=== PATIENT | female | born 1965 | race Caucasian/White ===

== ENCOUNTER 2016-05-11 15:49 | Inpatient (IN) ==
[2016-05-11] MEDS ORDERED: ONDANSETRON 4 MG/2 ML VIAL IV STA (16:08)
[2016-05-11] MEDS ORDERED: methylPREDNISolone SOD SUC 125 MG/2 ML VIAL IV STA (16:08)
[2016-05-11] MEDS ORDERED: FUROSEMIDE 100 MG/10 ML VIAL IV STA (16:08)
[2016-05-11] MEDS ORDERED: MORPHINE 2 MG/1 ML SYRINGE IV STA (16:08)
--- NOTE | 2016-05-11 16:13 | Emergency Department Note ---
Robby Calix Meredith, am scribing for, and in the presence of, Tito Edwards MD 16:09. Grace Calix Charles R, MD, personally performed the services described in this documentation, ascribed by Amie Bustamante in my presence, and it is both accurate and complete 613 . Arrival - Arrival Chief Complaint: Shortness of Breath ED Nursing Triage Note: c/o sob and cough for 3 days Mode of Arrival: Stretcher Limitations: No Limitations Source: Patient, Old Records Reviewed, RN Notes Reviewed Time Seen by Provider: 05/11/16 16:01 - History of Present Illness HPI Narrative: Pt is a 50 y/o white female brought to the ED by EMS with c/o shortness of breath and cough for the past 3 days. She confirms nausea, vomiting, orthonea, dyspnea on exertion, decreased PO intake, and inability to sleep but denies any chest pain. Pt states when she wakes up in the morning she feels very out of breath and has a headache. She had a hernia surgery on 04/10/16. Pt is a former smoker. She has a history of HTN, anxiety, depression, migraine, HLD, NIDDM, obstructive sleep apnea, asthma, bronchitis, COPD, and pneumonia. Pt is supposed to use a CPAP at night but has not been using it for the past month. Onset (ago): day(s) Allergies/Adverse Reactions: Allergies Allergy/AdvReac Type Severity Reaction Status Date / Time fentanyl [From Duragesic] Allergy Severe RASH, Verified 04/09/16 13:08 SWELLING OF FACE AND EYES Home Medications: Home Medications Medication Instructions Recorded Confirmed Type ALPRAZolam [Xanax] 0.5 mg PO BID PRN 02/01/15 05/11/16 History Albuterol Neb [Proventil Neb] 2.5 mg RESP TX Q4HR 02/01/15 05/11/16 History Budesonide/Formoterol 160-4.5 2 puff INH BID 02/01/15 05/11/16 History [Symbicort 160-4.5] FLUoxetine [PROzac] 40 mg PO DAILY 02/01/15 05/11/16 History Lisinopril/Hydrochlorothiazide 1 each PO DAILY 06/06/15 05/11/16 History [Lisinopril-Hctz 20-12.5 mg Tab] predniSONE TAB [PredniSONE] 20 mg PO TID 07/21/15 05/11/16 History Gabapentin Cap/Tab [Neurontin 100 mg PO DAILY 04/10/16 05/11/16 History Cap/Tab] Tizanidine HCl 4 mg PO Q8H PRN 04/10/16 05/11/16 History Review of System - Review of System 12 point system: reviewed and no additional remarkable complaints except as stated - Review of System Constitutional: Present: as per HPI, other (difficultly sleeping) Respiratory: Present: as per HPI, cough, other (SOB) Cardiovascular: Present: as per HPI, dyspnea on exertion, orthopnea. 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), Dental Problems (missing teeth) Endocrine: History of: Diabetes Mellitus (NIDDM) (when on steroids), Dyslipidemia Respiratory: History of: Asthma, Bronchitis, COPD, Obstructive Sleep Apnea (PT HAS CPAP), Pneumonia, Respiratory Problems (O2 2 LITERS) Gastrointestinal: History of: GI Problems (VENTRAL HERNIA) Musculoskeletal: History of: Back/Neck Problems - Surgical History Abdominal Surgeries: Surgical HX of: Appendectomy, Cholecystectomy, EGD, Hernia Repair (Ventral hernia with mesh) Reproductive Surgeries: Surgical HX of;: Section (X3), Tubal Ligation - Family History Family History: Reports;: Family Cancer, Family Heart Disease, Family Hypertension, Family Psychiatric Problems, Family Stroke Denies;: Family Anesthesia Reaction, Family Diabetes - Social History Smoking Status: Former smoker Frequency of Alcohol Use: None Type of Drug Use: None Exam Vital Signs: Vital Signs Temperature 97.5 F L 05/11/16 15:50 Pulse Rate 95 H 05/11/16 17:30 Respiratory Rate 24 05/11/16 17:30 Blood Pressure 100/67 05/11/16 15:50 O2 Sat by Pulse Oximetry 100 05/11/16 17:30 - General General appearance: alert, in no apparent distress - Head Head exam: Present: atraumatic, normocephalic - Eye Eye exam: Present: normal appearance, PERRL, EOMI - ENT ENT exam: Present: mucous membranes moist, normal external ear exam - Neck Neck exam: Present: full ROM, trachea midline. Absent: tenderness, meningismus , lymphadenopathy, thyromegaly - Chest Chest inspection: Present: symmetric chest wall rise. Absent: tenderness, rash - Respiratory Respiratory exam: Present: rales (bibasilar ), rhonchi (harsh ), wheezes - Cardiovascular Cardiovascular exam: Present: normal rhythm, tachycardia. Absent: murmur, rubs , gallop - Abdominal Exam Abdominal exam: Present: soft, normal bowel sounds, other (hernia repair incision site is healing well ). Absent: distention, tenderness - Extremities Exam Extremities exam: Present: full ROM, normal capillary refill. Absent: tenderness, pedal edema, calf tenderness - Back Exam Back exam: Present: full ROM. Absent: tenderness - Neurological Exam Neurological exam: Present: alert, oriented X3, CN II-XII intact. Absent: motor sensory deficit - Psychiatric Psychiatric exam: Present: normal affect, normal mood - Skin Skin exam: Present: warm, dry, intact, normal color Course - Consultations Consultation #1: Hospitalist will admit patient Time: 19:33 Results - Labs CBC & BMP: 05/11/16 16:42 05/11/16 16:42 Lab Results: I have reviewed the patients labs Labs: Laboratory Tests 05/11/16 16:42 WBC 16.1 H RBC 4.57 Hgb 13.1 Hct 42.0 MCHC 31.2 L Plt Count 461 H Lymph # (Auto) 7.5 H [place] # (Auto) 0.9 H Laboratory Tests 05/11/16 17:15 ABG pH 7.404 ABG pCO2 47.6 ABG pO2 69.9 L ABG HCO3 28.0 H ABG Total CO2 25.8 ABG O2 Saturation 93.9 L ABG Base Excess 4.1 H FiO2 28.00 Laboratory Tests 05/11/16 16:42 Sodium 139 Potassium 5.5 H Chloride 99 Carbon Dioxide 31 BUN 20 H Creatinine 0.90 BUN/Creatinine Ratio 22.00 H Alkaline Phosphatase 147 H Troponin I < 0.015 Globulin 4.6 H Albumin/Globulin Ratio 0.7 L Laboratory Tests 05/11/16 17:21 Urine pH 7.0 Ur Specific Yoder 1.006 Urine Urobilinogen < 2.0 H Urine RBC 1 Urine WBC 1 Ur Squamous Epith Cells Occasional - Diagnostic Findings Procedure: Chest x-ray: report reviewed by me (Proressive diffuse parenchymal findings which could be related to pneumonia, interstitial edema, progressive interstitial lung disease, etc. Findings remain more prominent in the lateral left lower lung zone with ill-defined densitites and progressive pleural thickening. ) Disposition Clinical Impression: COPD (chronic obstructive pulmonary disease) with acute bronchitis, Acute dyspnea, Community acquired pneumonia, Leukocytosis, Hyperkalemia Case discussed with: patient, patient's family Disposition: Still a Patient Condition: Stable Time of Disposition: 19:34
[2016-05-11] MEDS ORDERED: FUROSEMIDE 40 MG/4 ML VIAL ONE (16:28)
[2016-05-11] MEDS ORDERED: MORPHINE 2 MG/1 ML SYRINGE ONE (16:28)
[2016-05-11] MEDS ORDERED: ONDANSETRON 4 MG/2 ML VIAL ONE (16:28)
[2016-05-11] MEDS ORDERED: methylPREDNISolone SOD SUC 125 MG/2 ML VIAL ONE (16:29)
[2016-05-11] MEDS ORDERED: ALBUTEROL 2.5 MG/3 ML NEB RESP TX SCH (16:30)
--- NOTE | 2016-05-11 16:52 | XRay Report ---
Portable chest Date: 05/11/2016 Clinical history: Shortness of breath Comparison: 02/13/2016 Technique: Portable AP sitting chest Findings: The heart is borderline in size. Progressive diffuse parenchymal findings in the lungs. The findings are more pronounced in the lateral left mid to lower lung zone. Possible small pleural effusions. Stable mediastinum with degenerative changes. Old healed rib fractures. Impression: Progressive diffuse parenchymal findings which could be related to pneumonia, interstitial edema, progressive interstitial lung disease, etc. Findings remain more prominent in the lateral left lower lung zone with ill-defined densities and progressive pleural thickening. Follow-up recommended. PROCEDURE INTERPRETED AT [facility] DEPARTMENT OF RADIOLOGY Final Report Signed by: Dr. Cadence Lynne
[2016-05-11] MEDS ORDERED: cefTRIAXone 1,000 MG in SODIUM CHLORIDE 0.9% 100 ML IV STA (16:56)
[2016-05-11 17:05] LABS: Basophils % 0.2 % (0.0-0.8); Eosinophils # 0.3 10*3/uL (0.0-0.87); Hemoglobin 13.1 GM/DL (12.0-16.0); Immature Granulocytes % 0.4 %; Immature Granulocytes Absolute 0.07 #; Lymphocytes # 7.5 10*3/uL (1.4-4.0); Lymphocytes % 46.8 % (21.3-54.2); Mean Corpuscular HGB Conc 31.2 GM/DL (32-36); Mean Corpuscular Hemoglobin 29 PG (27-34); Mean Corpuscular Volume 91.9 FL (87-102); Monocytes # 0.9 10*3/uL (0.11-0.8); Monocytes % 5.7 % (1.7-12.7); Neutrophils # 7.2 10*3/uL (1.4-7.4); Neutrophils % 44.9 % (38.7-73.9); Platelet Count 461 T/CUMM (130-400); Red Blood Count 4.57 MC/CUMM (3.8-5.5); Red Cell Distribution Width 13.8 % (9.3-17.3); White Blood Count 16.1 T/CUMM (4-12)
[2016-05-11 17:23] LABS: ABG Base Excess 4.1 MMOL/L (-2.5-2.5); ABG Oxygen Saturation 93.9 % (95-100); ABG PCO2 47.6 MM HG (35-48); ABG PH 7.404 (7.35-7.45); ABG PO2 69.9 MM HG (80-95); ABG TCO2 25.8 MMOL/L (23-27); Allen Test Positive
[2016-05-11 17:23] LABS: Alanine Aminotransferase 33 U/L (13-56); Albumin 3.6 G/DL (3.4-5.0); Alkaline Phosphatase 147 U/L (45-117); Aspartate Amino Transferase 36 U/L (0-37); Blood Urea Nitrogen 20 MG/DL (7-18); Calcium 8.8 MG/DL (8.5-10.1); Glucose 95 MG/DL (74-106); Magnesium 2.4 MG/DL (1.8-2.4); Osmolality,Calculated 279.5 MOS/KG (273-304); Potassium 5.5 MMOL/L (3.5-5.1); Sodium 139 MMOL/L (136-145); Total Protein 8.2 G/DL (6.4-8.3); Troponin I Only < 0.015 NG/ML (0.00-0.045)
[2016-05-11 17:30] LABS: Apearance,Urine CLEAR (Clear); Bilirubin,Urine Negative (Negative); Blood, Urine Negative (Negative); Glucose,Urine (UA) Negative (Negative); Ketones,Urine Negative (Negative); Nitrite,Urine Negative (Negative); Protein,Urine Negative; RBC,Urine 1 /HPF (0-4); Squamous Epithelial Cell,Urine Occasional /HPF (0-10); Urine Color Straw (Yellow); Urine Specific Gravity 1.006 (1.001-1.035); Urine Urobilinogen < 2.0 EU/DL (0.2-1.0); WBC,Urine 1 /HPF (0-6)
--- NOTE | 2016-05-11 17:38 | EKG Report ---
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
[2016-05-11] MEDS ORDERED: cefTRIAXone 1,000 MG VIAL ONE (17:42)
[2016-05-11 17:53] LABS: D-Dimer 3.3 MG/L FEU
--- NOTE | 2016-05-11 18:55 | CT Report ---
History: Shortness of breath. Recently postop. Elevated d-dimer Date: 05/11/2016 Study: CT chest with IV contrast with pulmonary embolus technique Comparison exam: High-resolution CT chest February 09, [address] sections were obtained through the lungs following the IV administration of 80 mL of Omnipaque 350 without immediate complication. Multiplanar reconstruction images were also evaluated. Total DLP measures 294 mGy*cm. There is no discrete filling defect within the pulmonary arterial tree to suggest acute pulmonary embolic disease. There is slightly limited evaluation of the peripheral most pulmonary arterial tree because of IV contrast timing. There is mild coronary artery calcification involving the left anterior descending coronary artery. There is no thoracic aortic aneurysm or dissection. There is some mild right paratracheal and left prevascular lymphadenopathy, including a 12 mm short axis diameter right paratracheal node. These changes were present on the comparison study. There is chronic groundglass and reticular nodular parenchymal disease throughout both lungs, grossly similar to the previous study. This does relatively spare the inferior most aspect of the lower lobes and right middle lobe. There is no obvious new pulmonary mass. There is some peripheral honeycombing in the upper lung zones. Healing fractures of the left seventh and ninth ribs are present. There is no acute abnormality of the partially visualized upper abdomen. Impression: No evidence of acute pulmonary embolic disease. There is slightly decreased sensitivity for small peripheral emboli because of contrast opacification. There are some chronic interstitial lung changes which are similar to the previous study from February 09, 2016. There is some stable nonspecific mediastinal lymphadenopathy. Consider sarcoidosis. Healing rib fractures are noted on the left PROCEDURE INTERPRETED AT [facility] DEPARTMENT OF RADIOLOGY Final Report Signed by: Dr. Janel Ribeiro
[2016-05-11] MEDS ORDERED: RIZATRIPTAN ODT 5 MG TABLET PO STA (20:11)
[2016-05-11] MEDS ORDERED: PROMETHAZINE 25 MG/1 ML VIAL IM STA (20:11)
[2016-05-11] MEDS ORDERED: PROMETHAZINE 25 MG/1 ML VIAL ONE (20:12)
[2016-05-11] MEDS ORDERED: RIZATRIPTAN ODT 5 MG TABLET PO ONE (20:30)
--- NOTE | 2016-05-11 21:14 | Hospitalist History & Physical ---
Assessment and Plan (1) COPD (chronic obstructive pulmonary disease) with acute bronchitis Status: Chronic Current Visit: No (2) Acute exacerbation of chronic obstructive pulmonary disease (COPD) Status: Acute Current Visit: No (3) Community acquired pneumonia Status: Acute Current Visit: Yes (4) Acute exacerbation of chronic obstructive airways disease Status: Acute Current Visit: No (5) Acute dyspnea Status: Acute Current Visit: Yes (6) Leukocytosis Status: Acute Current Visit: Yes (7) Hyperkalemia Status: Acute Assessment and plan: Plan for this patient #1 admit the patient our service #2 IV antibiotics #3 scheduled breathing treatments. #[address] Bills to follow along on this patient Current Visit: Yes History of Present Illness Chief complaint: shortness of breath and cough History of present illness: Ms. Che is a 50 year old female with past medical history of COPD chronic low back pain who is his normal state of health till last few days. Patient reports a recent surgery for hernia repair. She said ever since then that she has felt short of breath. She been coughing really bad hasn't been that productive. She reports that today she got real dizzy and almost fainted. She got around to her nebulizer. And she is on home oxygen 24 hours a day. And try to treat herself. When she didn't get better she will and she was by herself she called EMS and EMS brought her up to our hospital for further evaluation Home Medications Medication Instructions Recorded Confirmed Type ALPRAZolam [Xanax] 0.5 mg PO BID PRN 02/01/15 05/11/16 History Albuterol Neb [Proventil Neb] 2.5 mg RESP TX Q4HR 02/01/15 05/11/16 History Budesonide/Formoterol 160-4.5 2 puff INH BID 02/01/15 05/11/16 History [Symbicort 160-4.5] FLUoxetine [PROzac] 40 mg PO DAILY 02/01/15 05/11/16 History Lisinopril/Hydrochlorothiazide 1 each PO DAILY 06/06/15 05/11/16 History [Lisinopril-Hctz 20-12.5 mg Tab] predniSONE TAB [PredniSONE] 20 mg PO TID 07/21/15 05/11/16 History Gabapentin Cap/Tab [Neurontin 100 mg PO DAILY 04/10/16 05/11/16 History Cap/Tab] Tizanidine HCl 4 mg PO Q8H PRN 04/10/16 05/11/16 History Allergies Allergy/AdvReac Type Severity Reaction Status Date / Time fentanyl [From Duragesic] Allergy Severe RASH, Verified 04/09/16 13:08 SWELLING OF FACE AND EYES Medical,Surgical,& Family Hx - Medical History Cardio: History of: Hypertension Psychological: History of: Anxiety Disorders, Depression Neurology: History of: Migraine (OCCASIONAL) No history of: Seizures HEENT: History of: 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), Dental Problems (missing teeth) Endocrine: History of: Diabetes Mellitus (NIDDM) (when on steroids), Dyslipidemia Respiratory: History of: Asthma, Bronchitis, COPD, Obstructive Sleep Apnea (PT HAS CPAP), Pneumonia, Respiratory Problems (O2 2 LITERS) Gastrointestinal: History of: GI Problems (VENTRAL HERNIA) Musculoskeletal: History of: Back/Neck Problems - Surgical History Abdominal Surgeries: Surgical HX of: Appendectomy, Cholecystectomy, EGD, Hernia Repair (Ventral hernia with mesh) Reproductive Surgeries: Surgical HX of;: Section (X3), Tubal Ligation - Family History Family History: Reports;: Family Cancer, Family Heart Disease, Family Hypertension, Family Psychiatric Problems, Family Stroke Denies;: Family Anesthesia Reaction, Family Diabetes - Social History Smoking Status: Former smoker Frequency of Alcohol Use: None Type of Drug Use: None 12 point system: reviewed and no additional remarkable complaints except as stated Exam - Constitutional Vitals: Period Temp Pulse Resp BP Sys/Ahuja Pulse Ox Last 24 Hr 97.5 F-97.5 F 86-102 18-24 90-103/55-67 91-100 - General General appearance: alert, in no apparent distress - Head Head exam: Present: atraumatic, normocephalic - Eye Eye exam: Present: normal appearance, PERRL, EOMI - ENT ENT exam: Present: mucous membranes moist, normal external ear exam - Neck Neck exam: Present: full ROM, trachea midline. Absent: tenderness, meningismus , lymphadenopathy, thyromegaly - Chest Chest inspection: Present: symmetric chest wall rise. Absent: tenderness, rash - Respiratory Respiratory exam: Present: rales (bibasilar ), rhonchi (harsh ), wheezes - Cardiovascular Cardiovascular exam: Present: normal rhythm, tachycardia. Absent: murmur, rubs , gallop - Abdominal Exam Abdominal exam: Present: soft, normal bowel sounds, other (hernia repair incision site is healing well ). Absent: distention, tenderness - Extremities Exam Extremities exam: Present: full ROM, normal capillary refill. Absent: tenderness, pedal edema, calf tenderness - Back Exam Back exam: Present: full ROM. Absent: tenderness - Neurological Exam Neurological exam: Present: alert, oriented X3, CN II-XII intact. Absent: motor sensory deficit - Psychiatric Psychiatric exam: Present: normal affect, normal mood - Skin Skin exam: Present: warm, dry, intact, normal color Results - Labs CBC & BMP: 05/11/16 16:42 05/11/16 16:42
[2016-05-11] MEDS ORDERED: ALBUTEROL 2.5 MG/3 ML NEB RESP TX PRN (21:19)
[2016-05-11] MEDS ORDERED: ONDANSETRON 4 MG/2 ML VIAL IV PRN (21:19)
[2016-05-11] MEDS ORDERED: tiZANidine 4 MG TABLET PO PRN (21:23)
[2016-05-11] MEDS ORDERED: ACETAMINOPHEN 325 MG TABLET PO PRN (23:13)
[2016-05-11] MEDS: BUDESONIDE/FORMOTEROL 160-4.5 INHALER 6 GM INH SCH (23:24)
[2016-05-11] MEDS: ALPRAZolam 0.5 MG TABLET PO PRN (23:29)
[2016-05-11] MEDS: methylPREDNISolone SOD SUC 40 MG/1 ML VIAL IV SCH (23:31)
[2016-05-11] MEDS: AZITHROMYCIN INJ 500 MG in SODIUM CHLORIDE 0.9% 250 ML IV SCH (23:34)
[2016-05-11 23:55] LABS: Platelet Estimate Increased
[2016-05-12] MEDS: ALBUTEROL/IPRATROPIUM 3 ML NEB RESP TX SCH ×4 (00:20→19:10)
[2016-05-12 06:53] LABS: Hematocrit 36.3 VOL% (35.7-47.0); Hemoglobin 11.4 GM/DL (12.0-16.0); Immature Granulocytes % 0.7 %; Immature Granulocytes Absolute 0.06 #; Lymphocytes # 1.5 10*3/uL (1.4-4.0); Lymphocytes % 17.3 % (21.3-54.2); Mean Corpuscular HGB Conc 31.4 GM/DL (32-36); Mean Corpuscular Hemoglobin 28 PG (27-34); Mean Corpuscular Volume 90.3 FL (87-102); Mean Platelet Volume 10.5 FL (9.6-12.0); Monocytes # 0.1 10*3/uL (0.11-0.8); Monocytes % 0.7 % (1.7-12.7); Neutrophils # 7.1 10*3/uL (1.4-7.4); Neutrophils % 81.3 % (38.7-73.9); Platelet Count 394 T/CUMM (130-400); Red Blood Count 4.02 MC/CUMM (3.8-5.5); Red Cell Distribution Width 13.8 % (9.3-17.3); White Blood Count 8.7 T/CUMM (4-12)
[2016-05-12 07:29] LABS: Calcium 8.8 MG/DL (8.5-10.1); Osmolality,Calculated 286.4 MOS/KG (273-304); Potassium 4.6 MMOL/L (3.5-5.1)
[2016-05-12] MEDS: GABAPENTIN 100 MG CAPSULE PO SCH (09:05)
[2016-05-12] MEDS: FLUoxetine 20 MG CAPSULE PO SCH (09:05)
[2016-05-12] MEDS: LISINOPRIL/HCTZ 20-12.5 MG TABLET PO SCH (09:05)
[2016-05-12] MEDS: methylPREDNISolone SOD SUC 40 MG/1 ML VIAL IV SCH ×3 (09:05→23:35)
[2016-05-12] MEDS: BUDESONIDE/FORMOTEROL 160-4.5 INHALER 6 GM INH SCH ×2 (09:06→20:48)
[2016-05-12] MEDS: ALPRAZolam 0.5 MG TABLET PO PRN ×2 (09:10→20:54)
[2016-05-12] MEDS: ENOXAPARIN 40 MG/0.4 ML SYRINGE SUBCUT SCH (09:11)
[2016-05-12] MEDS ORDERED: MORPHINE 2 MG/1 ML SYRINGE IV ONE ×2 (10:38→23:09)
--- NOTE | 2016-05-12 11:38 | Pulmonology Consult Note ---
Assessment and Plan (1) COPD (chronic obstructive pulmonary disease) with acute bronchitis Status: Chronic Assessment and plan: The patient has been a lifelong smoker and does have a component of COPD. She comes in with a mild exacerbation due to bronchitis and possible mild pneumonia. She seems to be doing okay on present treatment. Current Visit: No (2) Hypertension Status: Acute Assessment and plan: She'll continue with her blood pressure medicines. 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 She'll continue steroids and hopefully stay off cigarettes. Current Visit: No History of Present Illness Chief complaint: shortness of breath History of present illness: Ms. Che is a 50 year old white female that comes in with shortness of breath. She has a history of lifelong cigarette smoking and some COPD. 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 She has been on steroids and was reasonably stable. Recently she had a ventral hernia repair has been very sore. The past few days however she developed a URI and more cough and congestion. She came in with more shortness of breath. She will be started on IV antibiotics and steroids. Home Medications Medication Instructions Recorded Confirmed Type ALPRAZolam [Xanax] 0.5 mg PO BID 02/01/15 05/11/16 History Albuterol Neb [Proventil Neb] 2.5 mg RESP TX Q4HR 02/01/15 05/11/16 History Budesonide/Formoterol 160-4.5 2 puff INH BID 02/01/15 05/11/16 History [Symbicort 160-4.5] FLUoxetine [PROzac] 40 mg PO DAILY 02/01/15 05/11/16 History Lisinopril/Hydrochlorothiazide 1 each PO DAILY 06/06/15 05/11/16 History [Lisinopril-Hctz 20-12.5 mg Tab] predniSONE TAB [PredniSONE] 20 mg PO TID 07/21/15 05/11/16 History Gabapentin Cap/Tab [Neurontin 100 mg PO DAILY 04/10/16 05/11/16 History Cap/Tab] Tizanidine HCl 4 mg PO Q8H PRN 04/10/16 05/11/16 History HYDROcodone/ACETAMIN 10-325 [Woodman 1 tablet PO TID 05/11/16 05/12/16 History 10-325] Allergies Allergy/AdvReac Type Severity Reaction Status Date / Time fentanyl [From Duragesic] Allergy Severe RASH, Verified 04/09/16 13:08 SWELLING OF FACE AND EYES - Constitutional Constitutional: Present: fatigue, fever(s). Absent: chills, night sweats, weight gain - EENT Eyes: Absent: loss of vision Ears: Absent: decreased hearing Nose, mouth and throat: Present: nasal congestion. Absent: dysphagia, sinus pressure - Cardiovascular Cardiovascular: Present: dyspnea. Absent: chest pain at rest, edema, orthopnea - Respiratory Respiratory: Present: cough, wheezing, change in phlegm color. Absent: hemoptysis - Gastrointestinal Gastrointestinal: Absent: abdominal pain, change in bowel habits, dysphagia, heartburn, nausea, vomiting - Genitourinary Genitourinary: Absent: dysuria, hematuria, urinary hesitancy - Musculoskeletal Musculoskeletal: Absent: arthralgias, muscle weakness - Neurological Neurological: Absent: abnormal speech, focal weakness Exam (Pulmonay) H&P - Constitutional Vitals: Period Temp Pulse Resp BP Sys/Ahuja Pulse Ox Last 24 Hr 96.9 F-98.0 F 70-92 18-25 97-134/40-83 94-100 General appearance: no acute distress, over weight, other (she looks comfortable sitting up in bed.) - Head Head exam: Present: normal inspection, normocephalic - Eye Eye exam: Present: EOMI. Absent: scleral icterus Pupils: Present: LIVAN - ENT ENT exam: Present: normal exam - Neck Neck exam: Present: normal inspection. Absent: lymphadenopathy, thyromegaly - Respiratory Respiratory exam: Present: rales, rhonchi, other (patient has fair breath sounds but she does have some crackles and rhonchi bilaterally.) - Cardiovascular Cardiovascular exam: Present: regular rate and rhythm. Absent: gallop, systolic murmur - GI/Abdominal GI/Abdominal exam: Present: normal bowel sounds, soft, other (her abdominal wound is healing well.). 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), Dental Problems (missing teeth) Endocrine: History of: Diabetes Mellitus (NIDDM) (when on steroids), Dyslipidemia Respiratory: History of: Asthma, Bronchitis, COPD, Obstructive Sleep Apnea (PT HAS CPAP), Pneumonia, Respiratory Problems (O2 2 LITERS) Gastrointestinal: History of: GI Problems (VENTRAL HERNIA) Musculoskeletal: History of: Back/Neck Problems - Surgical History Abdominal Surgeries: Surgical HX of: Appendectomy, Cholecystectomy, EGD, Hernia Repair (Ventral hernia with mesh) Reproductive Surgeries: Surgical HX of;: Section (X3), Tubal Ligation - Family History Family History: Reports;: Family Cancer, Family Heart Disease, Family Hypertension, Family Psychiatric Problems, Family Stroke Denies;: Family Anesthesia Reaction, Family Diabetes - Social History Smoking Status: Former smoker Frequency of Alcohol Use: None Type of Drug Use: None Results - Labs CBC & BMP: 05/12/16 06:16 05/12/16 06:16 Labs: Her PO2 is 69 with a PCO2 of 47 and a pH is 7.40 - Diagnostic Findings Procedure: Chest x-ray: image reviewed by me, report reviewed by me (chest x- ray still showed bilateral interstitial changes.)
--- NOTE | 2016-05-12 12:42 | Hospitalist Progress Note ---
Assessment and Plan (1) COPD (chronic obstructive pulmonary disease) with acute bronchitis Status: Chronic Current Visit: No (2) Acute exacerbation of chronic obstructive pulmonary disease (COPD) Status: Acute Current Visit: No (3) Community acquired pneumonia Status: Acute Current Visit: Yes (4) Acute exacerbation of chronic obstructive airways disease Status: Acute Current Visit: No (5) Acute dyspnea Status: Acute Current Visit: Yes (6) Leukocytosis Status: Acute Current Visit: Yes (7) Hyperkalemia Status: Acute Assessment and plan: Plan for this patient #1 admit the patient our service #2 IV antibiotics #3 scheduled breathing treatments. #[address] Bills to follow along on this patient 05/12/16 patient seems to be doing okay as far as respiratory izquierdo. She was crying this morning because of her headache. Gave her one time dose of morphine. Scheduled her [place] or she doesn't have to ask for it. This could be a little withdrawal headache. Can continue her treatment of her COPD. And follow along with recommendations made by Dr. Bills Current Visit: Yes Hospitalist: Subjective Interval history: The patient was complaining of about a headache that started when she received nitroglycerin yesterday Exam - Constitutional Vitals: Period Temp Pulse Resp BP Sys/Ahuja Pulse Ox Last 24 Hr 96.9 F-98.0 F 70-92 18-25 97-134/40-83 94-100 - General General appearance: alert, in no apparent distress - Head Head exam: Present: atraumatic, normocephalic - Eye Eye exam: Present: normal appearance, PERRL, EOMI - ENT ENT exam: Present: mucous membranes moist, normal external ear exam - Neck Neck exam: Present: full ROM, trachea midline. Absent: tenderness, meningismus , lymphadenopathy, thyromegaly - Chest Chest inspection: Present: symmetric chest wall rise. Absent: tenderness, rash - Respiratory Respiratory exam: Present: Better air movement today - Cardiovascular Cardiovascular exam: Present: normal rhythm, tachycardia. Absent: murmur, rubs , gallop - Abdominal Exam Abdominal exam: Present: soft, normal bowel sounds, other (hernia repair incision site is healing well ). Absent: distention, tenderness - Extremities Exam Extremities exam: Present: full ROM, normal capillary refill. Absent: tenderness, pedal edema, calf tenderness - Back Exam Back exam: Present: full ROM. Absent: tenderness - Neurological Exam Neurological exam: Present: alert, oriented X3, CN II-XII intact. Absent: motor sensory deficit - Psychiatric Psychiatric exam: Present: normal affect, normal mood - Skin Skin exam: Present: warm, dry, intact, normal color Results - Labs CBC & BMP: 05/12/16 06:16 05/12/16 06:16
[2016-05-12] MEDS: cefTRIAXone 1,000 MG in SODIUM CHLORIDE 0.9% 100 ML IV SCH (18:44)
[2016-05-12] MEDS: AZITHROMYCIN INJ 500 MG in SODIUM CHLORIDE 0.9% 250 ML IV SCH (23:31)
[2016-05-13] MEDS: PROMETHAZINE 25 MG/1 ML VIAL IM PRN (00:41)
[2016-05-13] MEDS: ALBUTEROL/IPRATROPIUM 3 ML NEB RESP TX SCH ×4 (00:45→19:36)
[2016-05-13] MEDS: ENOXAPARIN 40 MG/0.4 ML SYRINGE SUBCUT SCH (10:13)
[2016-05-13] MEDS: methylPREDNISolone SOD SUC 40 MG/1 ML VIAL IV SCH ×2 (10:14→15:22)
[2016-05-13] MEDS: FLUoxetine 20 MG CAPSULE PO SCH (10:14)
[2016-05-13] MEDS: GABAPENTIN 100 MG CAPSULE PO SCH (10:14)
[2016-05-13] MEDS: LISINOPRIL/HCTZ 20-12.5 MG TABLET PO SCH (10:14)
[2016-05-13] MEDS: ALPRAZolam 0.5 MG TABLET PO PRN (10:16)
[2016-05-13] MEDS: BUDESONIDE/FORMOTEROL 160-4.5 INHALER 6 GM INH SCH ×2 (10:20→21:00)
--- NOTE | 2016-05-13 13:08 | Hospitalist Progress Note ---
Assessment and Plan (1) COPD (chronic obstructive pulmonary disease) with acute bronchitis Status: Chronic Current Visit: No (2) Acute exacerbation of chronic obstructive pulmonary disease (COPD) Status: Acute Current Visit: No (3) Community acquired pneumonia Status: Acute Current Visit: Yes (4) Acute exacerbation of chronic obstructive airways disease Status: Acute Current Visit: No (5) Acute dyspnea Status: Acute Current Visit: Yes (6) Leukocytosis Status: Acute Current Visit: Yes (7) Hyperkalemia Status: Acute Assessment and plan: Plan for this patient #1 admit the patient our service #2 IV antibiotics #3 scheduled breathing treatments. #[address] Bills to follow along on this patient 05/12/16 patient seems to be doing okay as far as respiratory izquierdo. She was crying this morning because of her headache. Gave her one time dose of morphine. Scheduled her Mcfaddin or she doesn't have to ask for it. This could be a little withdrawal headache. Can continue her treatment of her COPD. And follow along with recommendations made by Dr. Bills 05/13/16 patient's main complaint is not her breathing now. It is her headache. I am going to consult a neurologist to evaluate her headache. Think also a CT scan would be helpful. I tried to explain the to the patient that the morphine and the Mcfaddin basically work on this same manner. That the Mcfaddin should the longer acting and she is on Mcfaddin all the time. His come to the point sometimes where she refused to take an Mcfaddin and try to push for IV narcotics. Patient does seem like her head hurts. I'm not sure that it is extremely she . Current Visit: Yes Hospitalist: Subjective Interval history: Patient's complaining of an extreme headache involving her forehead. She says that the Mcfaddin doesn't help but that the morphine seems to help Exam - Constitutional Vitals: Period Temp Pulse Resp BP Sys/Ahuja Pulse Ox Last 24 Hr 96.4 F-98.3 F 66-104 18-19 108-154/61-80 95-99 - General General appearance: alert, in no apparent distress - Head Head exam: Present: atraumatic, normocephalic - Eye Eye exam: Present: normal appearance, PERRL, EOMI - ENT ENT exam: Present: mucous membranes moist, normal external ear exam - Neck Neck exam: Present: full ROM, trachea midline. Absent: tenderness, meningismus , lymphadenopathy, thyromegaly - Chest Chest inspection: Present: symmetric chest wall rise. Absent: tenderness, rash - Respiratory Respiratory exam: Present: Better air movement today - Cardiovascular Cardiovascular exam: Present: normal rhythm, tachycardia. Absent: murmur, rubs , gallop - Abdominal Exam Abdominal exam: Present: soft, normal bowel sounds, other (hernia repair incision site is healing well ). Absent: distention, tenderness - Extremities Exam Extremities exam: Present: full ROM, normal capillary refill. Absent: tenderness, pedal edema, calf tenderness - Back Exam Back exam: Present: full ROM. Absent: tenderness - Neurological Exam Neurological exam: Present: alert, oriented X3, CN II-XII intact. Absent: motor sensory deficit - Psychiatric Psychiatric exam: Present: normal affect, normal mood - Skin Skin exam: Present: warm, dry, intact, normal color Results - Labs CBC & BMP: 05/12/16 06:16 05/12/16 06:16
--- NOTE | 2016-05-13 13:32 | Physician Query Form ---
CLICK EDIT DOCUMENT TO SELECT QUERY ANSWER --> OK --> SIGN Justa Brizuela RN Clinical Flight Engineer Manager W) [phone] (f) [phone] [email or web address] PROVIDERS: Make your selection(s) from the choices in EACH section by typing an "x" and enter comments in the comment section. Please use your independent medical judgment in providing your response. This request does not imply that any particular answer is desired or expected. CLINICAL INDICATORS: (Providers should not edit this section) Based on documentation of "Chronic COPD" "Acute Pneumonia" "Acute dyspnea" " She is on home oxygen 24 hours a day" On O2 at 2L. If possible, please further clarify the type and acuity of respiratory diagnosis : ACUITY: ( ) Acute ( ) Chronic ( x) Acute on Chronic TYPE: ( x) Respiratory failure with hypoxia ( ) Respiratory failure with hypercapnia ( ) Respiratory Arrest ( ) Postprocedural/postoperative respiratory failure ( ) ARDS (Adult/Acute Respiratory Distress Syndrome) ( ) Other, please specify: ( ) Clinically unable to determine Recognized criteria for respiratory failure PH <7.35 or >7.45 PO2 <60 PCO2 >50 RR >24 O2 Sat <90% on RA or <95% on O2 Use of accessory muscles Unable to speak in full sentences Intubation is not required COMMENTS: Use of terms such as suspected, likely, or probable (associated with a specific diagnosis that is being evaluated, monitored, or treated as if it exists) are acceptable and can be restated in the discharge summary if not ruled out. MTDD
--- NOTE | 2016-05-13 13:49 | CT Report ---
CT of the head without contrast. Indication: Headache. Comparison: March 06, 2015. The ventricles are within the range of normal and stable. There is no mass effect, midline shift, or area of hemorrhage. No cortical infarcts are seen. The calvarium is intact. 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 The included paranasal sinuses and the mastoid air cells are clear. Impression: No acute intracranial process is seen. PROCEDURE INTERPRETED AT [facility] DEPARTMENT OF RADIOLOGY Final Report Signed by: Dr. Mervat Marcum
--- NOTE | 2016-05-13 14:28 | Neurology Consult Note ---
History of Present Illness History of present illness: Ms. Che is a 50 year old white female that comes in with shortness of breath. She has a history of lifelong cigarette smoking and some COPD. 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 She has been on steroids and was reasonably stable. Recently she had a ventral hernia repair has been very sore. The past few days however she developed a URI and more cough and congestion. She came in with more shortness of breath. She states that 2 days ago she was given nitroglycerin tablet and ever since she has been having severe bifrontal headaches. Headache does associate it with some nausea. At the baseline she does get sinus headaches every now and then. She has been given morphine which has helped some but headache returned. Home Medications Medication Instructions Recorded Confirmed Type ALPRAZolam [Xanax] 0.5 mg PO BID 02/01/15 05/11/16 History Albuterol Neb [Proventil Neb] 2.5 mg RESP TX Q4HR 02/01/15 05/11/16 History Budesonide/Formoterol 160-4.5 2 puff INH BID 02/01/15 05/11/16 History [Symbicort 160-4.5] FLUoxetine [PROzac] 40 mg PO DAILY 02/01/15 05/11/16 History Lisinopril/Hydrochlorothiazide 1 each PO DAILY 06/06/15 05/11/16 History [Lisinopril-Hctz 20-12.5 mg Tab] predniSONE TAB [PredniSONE] 20 mg PO TID 07/21/15 05/11/16 History Gabapentin Cap/Tab [Neurontin 100 mg PO DAILY 04/10/16 05/11/16 History Cap/Tab] Tizanidine HCl 4 mg PO Q8H PRN 04/10/16 05/11/16 History HYDROcodone/ACETAMIN 10-325 [Watts 1 tablet PO TID 05/11/16 05/12/16 History 10-325] Allergies Allergy/AdvReac Type Severity Reaction Status Date / Time fentanyl [From Duragesic] Allergy Severe RASH, Verified 04/09/16 13:08 SWELLING OF FACE AND EYES 12 point system: reviewed and no additional remarkable complaints except as stated Medical,Surgical,& Family Hx - Medical History Cardio: History of: Hypertension Psychological: History of: Anxiety Disorders, Depression Neurology: History of: Migraine (OCCASIONAL) No history of: Seizures HEENT: History of: 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), Dental Problems (missing teeth) Endocrine: History of: Diabetes Mellitus (NIDDM) (when on steroids), Dyslipidemia Respiratory: History of: Asthma, Bronchitis, COPD, Obstructive Sleep Apnea (PT HAS CPAP), Pneumonia, Respiratory Problems (O2 2 LITERS) Gastrointestinal: History of: GI Problems (VENTRAL HERNIA) Musculoskeletal: History of: Back/Neck Problems - Surgical History Abdominal Surgeries: Surgical HX of: Appendectomy, Cholecystectomy, EGD, Hernia Repair (Ventral hernia with mesh) Reproductive Surgeries: Surgical HX of;: Section (X3), Tubal Ligation - Family History Family History: Reports;: Family Cancer, Family Heart Disease, Family Hypertension, Family Psychiatric Problems, Family Stroke Denies;: Family Anesthesia Reaction, Family Diabetes - Social History Smoking Status: Former smoker Frequency of Alcohol Use: None Type of Drug Use: None Exam - Constitutional Vitals: Period Temp Pulse Resp BP Sys/Ahuja Pulse Ox Last 24 Hr 96.4 F-98.3 F 66-104 18-18 108-154/61-80 95-99 Exam: GENERAL: Patient is in no acute distress. NECK: Neck is supple. There is no JVD. No carotid bruits present. No thyroid masses. CVS: First and second heart sounds are normal. There is no S3 present. Regular rate and rhythm. RESPIRATORY: Lungs are clear to auscultation without any rales or rhonchi. ABDOMEN: Soft and non-tender. Bowel sounds are present. There is no hepatosplenomegaly. EXT: There is no palpable edema. Peripheral pulses are present. Skin: No rashes Central Nervous system: General: Alert, awake and Oriented x 3 Speech: Fluent Comprehension: Intact and normal Facial expressions: Normal Cranial Nerves: CN1/Olfactory: Normal CN II/ Optic: Normal, Visual Miller unreliable CN III, and : LIVAN & EOMI CN V: Normal & intact CN VII: face is symmetric CNVIII: Normal CN XI/X/XI/XII: Intact and Normal Motor: Bulk and Tone is normal. Strength in the right 5/5 Strength in the left 5/5 Sensory: Grossly intact for all the modalities of PP, LT and temp sense Reflexes: 1+ and symmetrical Cerebellar function: Normal finger to nose and heel to meraz testing. Gait: Normal heel to heel and toe to toe and tandem walk. Results - Labs CBC & BMP: 05/12/16 06:16 05/12/16 06:16 Assessment and Plan (1) Intractable headache Status: Acute Assessment and plan: Geodon 20 mg IM one is now Thorazine 25 mg IV when both HS Thank you for the consult Current Visit: Yes
[2016-05-13] MEDS ORDERED: ZIPRASIDONE 20 MG/1 ML VIAL IM ONE (14:29)
--- NOTE | 2016-05-13 14:56 | Pulmonology Progress Note ---
Pulmonary - PN: Subj Interval history: The patient is a 50-year-old white lady that comes and short of breath. 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 She has been doing a little better on steroids. Several years ago her lungs completely clear to oral steroids but she quit taking medicines and interstitial infiltrates came back. She came in with some congestion but is breathing better now. She has been complaining of a bad headache. She will be seen by neurology. Her breathing seems to be stable. Exam (Progress Note) - Constitutional Vitals: Period Temp Pulse Resp BP Sys/Ahuja Pulse Ox Last 24 Hr 96.4 F-98.3 F 66-104 18-18 108-154/61-80 95-99 Exam: General appearance: no acute distress, over weight, other (she is breathing comfortably but complains of a headache. ) - Head Head exam: Present: normal inspection, normocephalic - Eye Eye exam: Present: EOMI. Absent: scleral icterus Pupils: Present: LIVAN - ENT ENT exam: Present: normal exam - Neck Neck exam: Present: normal inspection. Absent: lymphadenopathy, thyromegaly - Respiratory Respiratory exam: Present: She has fairly good air movement with only minimal crackles and rhonchi. - Cardiovascular Cardiovascular exam: Present: regular rate and rhythm. Absent: gallop, systolic murmur - GI/Abdominal GI/Abdominal exam: Present: normal bowel sounds, soft, other (her abdominal wound is healing well.). Absent: organomegaly, tenderness - Extremities Exam Extremities exam: Absent: calf tenderness, edema - Neurological Exam Neurological exam: Present: alert, oriented X3, CN II-XII intact - Psychiatric Psychiatric exam: Present: normal affect - Skin Skin exam: Present: warm, dry Results - Labs CBC & BMP: 05/12/16 06:16 05/12/16 06:16 Assessment and Plan (1) COPD (chronic obstructive pulmonary disease) with acute bronchitis Status: Chronic Assessment and plan: The patient has been a lifelong smoker and does have a component of COPD. She comes in with a mild exacerbation due to bronchitis and possible mild pneumonia. She seems to be doing okay on present treatment. She looks like she is breathing comfortably now. Current Visit: No (2) Hypertension Status: Acute Assessment and plan: She'll continue with her blood pressure medicines. Her blood pressure has been reasonably stable. 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 She'll continue steroids and hopefully stay off cigarettes. She seems to be stable at present. Current Visit: No (4) Intractable headache Status: Acute Assessment and plan: Her CT was negative and she is seeing neurology. She is getting some treatment for her headaches. Current Visit: Yes
[2016-05-13] MEDS: cefTRIAXone 1,000 MG in SODIUM CHLORIDE 0.9% 100 ML IV SCH (17:32)
[2016-05-13] MEDS ORDERED: chlorproMAZINE INJ 25 MG in SODIUM CHLORIDE 0.9% 100 ML IV SCH (21:00)
[2016-05-14] MEDS: methylPREDNISolone SOD SUC 40 MG/1 ML VIAL IV SCH ×4 (00:27→23:25)
[2016-05-14] MEDS: AZITHROMYCIN INJ 500 MG in SODIUM CHLORIDE 0.9% 250 ML IV SCH ×2 (00:28→23:25)
[2016-05-14] MEDS: ALBUTEROL/IPRATROPIUM 3 ML NEB RESP TX SCH ×4 (00:49→20:05)
[2016-05-14] MEDS: ENOXAPARIN 40 MG/0.4 ML SYRINGE SUBCUT SCH (09:19)
[2016-05-14] MEDS: LISINOPRIL/HCTZ 20-12.5 MG TABLET PO SCH (09:20)
[2016-05-14] MEDS: BUDESONIDE/FORMOTEROL 160-4.5 INHALER 6 GM INH SCH ×2 (09:20→21:24)
[2016-05-14] MEDS: GABAPENTIN 100 MG CAPSULE PO SCH (09:21)
[2016-05-14] MEDS: FLUoxetine 20 MG CAPSULE PO SCH (09:21)
[2016-05-14] MEDS: ALPRAZolam 0.5 MG TABLET PO PRN ×2 (09:31→21:22)
--- NOTE | 2016-05-14 10:49 | Hospitalist Progress Note ---
Assessment and Plan (1) COPD (chronic obstructive pulmonary disease) with acute bronchitis Status: Chronic Current Visit: No (2) Acute exacerbation of chronic obstructive pulmonary disease (COPD) Status: Acute Current Visit: No (3) Community acquired pneumonia Status: Acute Current Visit: Yes (4) Acute exacerbation of chronic obstructive airways disease Status: Acute Current Visit: No (5) Acute dyspnea Status: Acute Current Visit: Yes (6) Leukocytosis Status: Acute Current Visit: Yes (7) Hyperkalemia Status: Acute Assessment and plan: Plan for this patient #1 admit the patient our service #2 IV antibiotics #3 scheduled breathing treatments. #[address] Bills to follow along on this patient 05/12/16 patient seems to be doing okay as far as respiratory izquierdo. She was crying this morning because of her headache. Gave her one time dose of morphine. Scheduled her Douglas or she doesn't have to ask for it. This could be a little withdrawal headache. Can continue her treatment of her COPD. And follow along with recommendations made by Dr. Bills 05/13/16 patient's main complaint is not her breathing now. It is her headache. I am going to consult a neurologist to evaluate her headache. Think also a CT scan would be helpful. I tried to explain the to the patient that the morphine and the Douglas basically work on this same manner. That the Douglas should the longer acting and she is on Douglas all the time. His come to the point sometimes where she refused to take an Douglas and try to push for IV narcotics. Patient does seem like her head hurts. . 05/14/16 patient's headache has significantly improved with the past [address] Zhang input. Patient's lung status has also improved. Appreciate Dr. Bills's input. Continue with current treatment as is for right now on COPD exacerbation. Patient should be eligible for discharge tomorrow Current Visit: Yes Hospitalist: Subjective Interval history: Patient reports her headache has improved significantly from yesterday. She also reports her breathing is stable Exam - Constitutional Vitals: Period Temp Pulse Resp BP Sys/Ahuja Pulse Ox Last 24 Hr 96.1 F-98.7 F 60-104 16-20 117-170/68-91 91-99 - General General appearance: alert, in no apparent distress - Head Head exam: Present: atraumatic, normocephalic - Eye Eye exam: Present: normal appearance, PERRL, EOMI - ENT ENT exam: Present: mucous membranes moist, normal external ear exam - Neck Neck exam: Present: full ROM, trachea midline. Absent: tenderness, meningismus , lymphadenopathy, thyromegaly - Chest Chest inspection: Present: symmetric chest wall rise. Absent: tenderness, rash - Respiratory Respiratory exam: Present: Better air movement today - Cardiovascular Cardiovascular exam: Present: normal rhythm, tachycardia. Absent: murmur, rubs , gallop - Abdominal Exam Abdominal exam: Present: soft, normal bowel sounds, - Extremities Exam Extremities exam: Present: full ROM, normal capillary refill. Absent: tenderness, pedal edema, calf tenderness - Back Exam Back exam: Present: full ROM. Absent: tenderness - Neurological Exam Neurological exam: Present: alert, oriented X3, CN II-XII intact. Absent: motor sensory deficit - Psychiatric Psychiatric exam: Present: normal affect, normal mood - Skin Skin exam: Present: warm, dry, intact, normal color Results - Labs CBC & BMP: 05/12/16 06:16 05/12/16 06:16
--- NOTE | 2016-05-14 10:53 | Hospitalist Progress Note ---
Assessment and Plan - Time spent with patient Time spent with patient: Less than 30 minutes (due to assessment, plan and documentation.) (1) Acute bronchitis with chronic obstructive pulmonary disease (COPD) Status: Acute Assessment and plan: continue on abx and nebs Current Visit: Yes (2) Community acquired pneumonia Status: Acute Current Visit: Yes (3) Hyperkalemia Status: Resolved Current Visit: Yes Hospitalist: Subjective Interval history: Ms. Che was seen on rounds today lying in bed watching TV. She states that she thinks that she feels some better, but that she is continuing to cough up copious amounts of phlegm especially after treatments. Continues to have some expiratory wheezes in both lungs. Potassium is back to normal today. We will continue current plan of care and follow along with Pulmonology. Labs in AM. Exam - Constitutional Vitals: Period Temp Pulse Resp BP Sys/Ahuja Pulse Ox Last 24 Hr 96.1 F-98.7 F 60-104 16-20 117-170/68-91 91-99 General appearance: normal weight, no acute distress - Head Head exam: Present: normal inspection, normocephalic - Eye Eye exam: Present: EOMI. Absent: scleral icterus Pupils: Present: LIVAN, normal accommodation - ENT ENT exam: Present: normal exam, normal oropharynx - Neck Neck exam: Present: normal inspection. Absent: lymphadenopathy - Respiratory Respiratory exam: Present: wheezes (expiratory). Absent: accessory muscle use - Cardiovascular Cardiovascular exam: Present: regular rate and rhythm - GI/Abdominal GI/Abdominal exam: Present: normal bowel sounds, soft. Absent: tenderness - Extremities Exam Extremities exam: Present: normal inspection. Absent: edema - Back Exam Back exam: Present: normal inspection. Absent: muscle spasm - Neurological Exam Neurological exam: Present: alert, oriented X3 - Psychiatric Psychiatric exam: Present: normal affect, normal mood - Skin Skin exam: Present: normal color, warm, dry, intact Results - Labs CBC & BMP: 05/12/16 06:16 05/12/16 06:16 Lab Results: I have reviewed the past 24 hour labs
--- NOTE | 2016-05-14 13:37 | Pulmonology Progress Note ---
Pulmonary - PN: Subj Interval history: The patient is a 50-year-old white lady that comes and short of breath. 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 She has been doing a little better on steroids. Several years ago her lungs completely clear to oral steroids but she quit taking medicines and interstitial infiltrates came back. She came in with some congestion but is breathing better now. She says she's feeling better and her headache is better. She has some cough but Her breathing is doing okay. We will check a chest x-ray tomorrow and if she stable she can go home. Exam (Progress Note) - Constitutional Vitals: Period Temp Pulse Resp BP Sys/Ahuja Pulse Ox Last 24 Hr 96.1 F-98.7 F 60-83 16-20 117-170/68-91 91-99 Exam: General appearance: no acute distress, over weight, other (she looks like she feels better and is in no distress.) - Head Head exam: Present: normal inspection, normocephalic - Eye Eye exam: Present: EOMI. Absent: scleral icterus Pupils: Present: LIVAN - ENT ENT exam: Present: normal exam - Neck Neck exam: Present: normal inspection. Absent: lymphadenopathy, thyromegaly - Respiratory Respiratory exam: Present: She has fairly good air movement with only minimal crackles and rhonchi. - Cardiovascular Cardiovascular exam: Present: regular rate and rhythm. Absent: gallop, systolic murmur - GI/Abdominal GI/Abdominal exam: Present: normal bowel sounds, soft, other (her abdominal wound is healing well.). Absent: organomegaly, tenderness - Extremities Exam Extremities exam: Absent: calf tenderness, edema - Neurological Exam Neurological exam: Present: alert, oriented X3, CN II-XII intact - Psychiatric Psychiatric exam: Present: normal affect - Skin Skin exam: Present: warm, dry Results - Labs CBC & BMP: 05/12/16 06:16 05/12/16 06:16 Assessment and Plan (1) COPD (chronic obstructive pulmonary disease) with acute bronchitis Status: Chronic Assessment and plan: The patient has been a lifelong smoker and does have a component of COPD. She comes in with a mild exacerbation due to bronchitis and possible mild pneumonia. She seems to be doing okay on present treatment. She looks like she is breathing comfortably now. We will repeat a chest x-ray tomorrow. Current Visit: No (2) Hypertension Status: Acute Assessment and plan: She'll continue with her blood pressure medicines. Her blood pressure has been reasonably stable. 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 She'll continue steroids and hopefully stay off cigarettes. She seems to be stable at present. She will probably be ready to go home tomorrow. Current Visit: No (4) Intractable headache Status: Acute Assessment and plan: Her CT was negative and she is seeing neurology. Her headache is better today. Current Visit: Yes
--- NOTE | 2016-05-14 13:47 | Neurology Progress Note ---
Neurology - PN : Subjective Interval history: Patient seems to be doing much better. Headaches have improved significantly. No any problems reported. Exam (Progress Note) - Constitutional Vitals: Period Temp Pulse Resp BP Sys/Ahuja Pulse Ox Last 24 Hr 96.1 F-98.7 F 60-83 16-20 117-170/68-91 91-99 Exam: GENERAL: Patient is in no acute distress. NECK: Neck is supple. There is no JVD. No carotid bruits present. No thyroid masses. CVS: First and second heart sounds are normal. There is no S3 present. Regular rate and rhythm. RESPIRATORY: Lungs are clear to auscultation without any rales or rhonchi. ABDOMEN: Soft and non-tender. Bowel sounds are present. There is no hepatosplenomegaly. EXT: There is no palpable edema. Peripheral pulses are present. Skin: No rashes Central Nervous system: General: Alert, awake and Oriented x 3 Speech: Fluent Comprehension: Intact and normal Facial expressions: Normal Cranial Nerves: CN1/Olfactory: Normal CN II/ Optic: Normal, Visual Miller unreliable CN III, and : LIVAN & EOMI CN V: Normal & intact CN VII: face is symmetric CNVIII: Normal CN XI/X/XI/XII: Intact and Normal Motor: Bulk and Tone is normal. Strength in the right 5/5 Strength in the left 5/5 Sensory: Grossly intact for all the modalities of PP, LT and temp sense Reflexes: 1+ and symmetrical Cerebellar function: Normal finger to nose and heel to meraz testing. Gait: Normal heel to heel and toe to toe and tandem walk. Results - Labs CBC & BMP: 05/12/16 06:16 05/12/16 06:16 Assessment and Plan (1) Intractable headache Status: Acute Assessment and plan: Fioricet one tablet every 4-6 when necessary Signoff please call when necessary Current Visit: Yes
[2016-05-14] MEDS: BUTALBITAL/ACETAMIN/CAFFEINE 50-325-40 MG TABLET PO PRN ×2 (15:47→23:35)
[2016-05-14] MEDS: PROMETHAZINE 25 MG/1 ML VIAL IM PRN ×2 (15:47→23:25)
[2016-05-14] MEDS: cefTRIAXone 1,000 MG in SODIUM CHLORIDE 0.9% 100 ML IV SCH (17:50)
[2016-05-15] MEDS: ALBUTEROL/IPRATROPIUM 3 ML NEB RESP TX SCH ×2 (05:01→07:46)
--- NOTE | 2016-05-15 06:58 | XRay Report ---
XR chest 2V Indication: Interstitial lung disease. Comparison: Chest x-ray 05/11/2016 Technique: PA and lateral chest x-ray was performed. Findings: Diffuse interstitial prominence remains present bilaterally with some clearing of airspace opacities noted in the lateral aspect of the mid to lower left lung. Chest is otherwise stable. Impression: 1. Interval partial clearing of the lateral aspect of the mid to lower left lung is suggested. 05/15/2016 6:54 AM PROCEDURE INTERPRETED AT [facility] DEPARTMENT OF RADIOLOGY Final Report Signed by: Dr. Javi Ramos
[2016-05-15 07:17] VITALS: BP 147/87
[2016-05-15 07:25] LABS: Basophils % 0.2 % (0.0-0.8); Hematocrit 37.5 VOL% (35.7-47.0); Hemoglobin 11.6 GM/DL (12.0-16.0); Immature Granulocytes % 2.2 %; Immature Granulocytes Absolute 0.27 #; Lymphocytes % 16.7 % (21.3-54.2); Mean Corpuscular HGB Conc 30.9 GM/DL (32-36); Mean Corpuscular Hemoglobin 28 PG (27-34); Mean Corpuscular Volume 91.5 FL (87-102); Mean Platelet Volume 10.6 FL (9.6-12.0); Monocytes # 0.3 10*3/uL (0.11-0.8); Monocytes % 2.8 % (1.7-12.7); Neutrophils # 9.5 10*3/uL (1.4-7.4); Neutrophils % 78.1 % (38.7-73.9); Platelet Count 338 T/CUMM (130-400); Red Cell Distribution Width 13.7 % (9.3-17.3); White Blood Count 12.2 T/CUMM (4-12)
[2016-05-15 08:01] LABS: Albumin 3.1 G/DL (3.4-5.0); Bilirubin,Total 0.6 MG/DL (0.2-1.0); Calcium 9.1 MG/DL (8.5-10.1); Osmolality,Calculated 286.4 MOS/KG (273-304); Potassium 4.5 MMOL/L (3.5-5.1); Total Protein 7.2 G/DL (6.4-8.3)
--- NOTE | 2016-05-15 08:46 | Pulmonology Progress Note ---
Pulmonary - PN: Subj Interval history: The patient is a 50-year-old white lady that comes and short of breath. 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 She has been doing a little better on steroids. Several years ago her lungs completely clear to oral steroids but she quit taking medicines and interstitial infiltrates came back. She came in with some congestion but is breathing better now. She had a fairly good night and overall feels better. Her headaches have improved and she is not having any abdominal pain. Her cough and congestion are much better. She is quite stable and her x-ray looks better. She does need to stay on prednisone while we 'll check her back in the office. Exam (Progress Note) - Constitutional Vitals: Period Temp Pulse Resp BP Sys/Ahuja Pulse Ox Last 24 Hr 96.1 F-97.9 F 62-85 16-18 126-161/70-88 91-100 Exam: General appearance: no acute distress, over weight, other (she looks like she feels better and is in no distress. Overall she is much improved.) - Head Head exam: Present: normal inspection, normocephalic - Eye Eye exam: Present: EOMI. Absent: scleral icterus Pupils: Present: LIVAN - ENT ENT exam: Present: normal exam - Neck Neck exam: Present: normal inspection. Absent: lymphadenopathy, thyromegaly - Respiratory Respiratory exam: Present: She has fairly good air movement still has very mild inspiratory crackles but no wheezing. - Cardiovascular Cardiovascular exam: Present: regular rate and rhythm. Absent: gallop, systolic murmur - GI/Abdominal GI/Abdominal exam: Present: normal bowel sounds, soft, other (her abdominal wound is healing well.). Absent: organomegaly, tenderness - Extremities Exam Extremities exam: Absent: calf tenderness, edema - Neurological Exam Neurological exam: Present: alert, oriented X3, CN II-XII intact - Psychiatric Psychiatric exam: Present: normal affect - Skin Skin exam: Present: warm, dry Results - Labs CBC & BMP: 05/15/16 07:03 05/15/16 07:03 - Diagnostic Findings Procedure: Chest x-ray: image reviewed by me, report reviewed by me (her chest x -ray looks better but still has some mild interstitial infiltrates.) Assessment and Plan (1) COPD (chronic obstructive pulmonary disease) with acute bronchitis Status: Chronic Assessment and plan: The patient has been a lifelong smoker and does have a component of COPD. She comes in with a mild exacerbation due to bronchitis and possible mild pneumonia. She is doing much better and can go home from my standpoint. Current Visit: No (2) Hypertension Status: Acute Assessment and plan: She'll continue with her blood pressure medicines. Her blood pressure has been reasonably stable. 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 She does get better with steroids and her x-ray looks better today. Current Visit: No (4) Intractable headache Status: Acute Assessment and plan: Her CT was negative and she is seeing neurology. Her headache is better today. Overall she is doing much better. Current Visit: Yes
[2016-05-15] MEDS: LISINOPRIL/HCTZ 20-12.5 MG TABLET PO SCH (08:49)
[2016-05-15] MEDS: FLUoxetine 20 MG CAPSULE PO SCH (08:49)
[2016-05-15] MEDS: GABAPENTIN 100 MG CAPSULE PO SCH (08:49)
[2016-05-15] MEDS: BUDESONIDE/FORMOTEROL 160-4.5 INHALER 6 GM INH SCH (08:51)
[2016-05-15] MEDS: ENOXAPARIN 40 MG/0.4 ML SYRINGE SUBCUT SCH (08:51)
--- NOTE | 2016-05-15 08:52 | Discharge Summary ---
Hospital Course - Hospital Course Hospital Course: The patient was admitted to the hospital with excess clear sputum production and shortness of breath and infiltrate on chest x-ray. We had pulmonary consultation with Dr. Bills who is covering for Dr. Roach who is the patient's outpatient commercial lending vice president. He determined that the patient's interstitial lung disease was in exacerbation, likely on account of the patient discontinuing prednisone. The patient improved on a regimen including beta agonist nebulized breathing therapies, intravenous steroid at moderate dose, and azithromycin. The patient's pulmonary infiltrates were improving and she is now ready for discharge home. She has less shortness of breath and sputum production has improved. The patient will see Dr. Roach in the office in 2 weeks. On the date of discharge, chest has some diffuse crackling sounds and lung volume is diminished but stable. Abdomen soft heart has regular rate and rhythm. - Time spent with patient Time with patient DS: Greater than 30 minutes Diagnosis - Discharge Diagnosis (1) Interstitial lung disease Status: Chronic (2) Acute exacerbation of chronic obstructive pulmonary disease (COPD) Status: Resolved Discharge Plan - Discharge Data Disposition: Disch To Home/Self Care Condition at Discharge: Stable Discharge Diet: advance to your usual diet Activity: resume usual activities as tolerated - Discharge Medications Continue Albuterol Neb [Proventil Neb] 2.5 mg RESP TX Q4HR ALPRAZolam [Xanax] 0.5 mg PO BID FLUoxetine [PROzac] 40 mg PO DAILY Budesonide/Formoterol 160-4.5 [Symbicort 160-4.5] 2 puff INH BID Lisinopril/Hydrochlorothiazide [Lisinopril-Hctz 20-12.5 mg Tab] 1 each PO DAILY HYDROcodone/ACETAMIN 10-325 [[place] 10-325] 1 tablet PO TID Tizanidine HCl 4 mg PO Q8H PRN PRN Reason: MUSCLE SPASMS Gabapentin Cap/Tab [Neurontin Cap/Tab] 100 mg PO DAILY predniSONE TAB [PredniSONE] 20 mg PO TID #120 tablet - Follow Up or Referral - Forms/Instructions Exam - Constitutional Vitals: Period Temp Pulse Resp BP Sys/Ahuja Pulse Ox Last 24 Hr 96.1 F-97.9 F 62-85 16-18 126-161/70-88 91-100 Discharge Results Labs on day of discharge: Labs from last 24 hours 05/15/16 05/15/16 07:03 07:03 WBC 12.2 H D RBC 4.10 Hgb 11.6 L Hct 37.5 MCV 91.5 MCH 28 MCHC 30.9 L RDW 13.7 Plt Count 338 MPV 10.6 Neut % (Auto) 78.1 H Lymph % (Auto) 16.7 L [place] % (Auto) 2.8 Eos % (Auto) 0.0 Baso % (Auto) 0.2 Neut # (Auto) 9.5 H Lymph # (Auto) 2.0 [place] # (Auto) 0.3 Eos # (Auto) 0.0 Baso # (Auto) 0.0 Immature Gran % 2.2 Nucleated RBC % 0.0 Immature Gran # 0.27 Nucleated RBCs # 0.00 Sodium 140 Potassium 4.5 Chloride 100 Carbon Dioxide 31 Anion Gap 13.5 BUN 30 H Creatinine 0.90 GFR Calculation 79 BUN/Creatinine Ratio 33.00 H Glucose 132 H Calculated Osmolality 286.4 Calcium 9.1 Total Bilirubin 0.60 AST 11 ALT 40 Alkaline Phosphatase 110 Total Protein 7.2 Albumin 3.1 L Globulin 4.1 H Albumin/Globulin Ratio 0.7 L DS: Provider Date of admission: 05/11/16 21:19 Primary care physician: Lisa Bishop MD Attending physician on admission: Dio Townsend MD Consults: 05/13/16 13:09 Consult to Physician [CONS] Routine Comment: headache Consulting Provider: Stephan Zhang Person Notified: min Date Notified: 05/13/16 Time Notified: 13:16 Discharging clinician: Nakul Cardenas MD
[2016-05-15] MEDS: ALPRAZolam 0.5 MG TABLET PO PRN (08:53)
[2016-05-15] MEDS ORDERED: predniSONE 20 MG TABLET PO SCH (09:00)
[2016-05-15] MEDS: methylPREDNISolone SOD SUC 40 MG/1 ML VIAL IV SCH (09:42)
== END 2016-05-15 11:48 | disposition home or self-care (01) | DRG 140 ==
LOC: EDUNIT# → EDBD → N.ED 15:49 → N.EDINP 21:19 → N.5E 22:53
PROVIDERS: ADMIT Internal Medicine; ATTEND Internal Medicine

== ENCOUNTER 2016-11-27 16:45 | Inpatient (IN) ==
[2016-11-27] MEDS ORDERED: MAGNESIUM SULF RIDER 2 GM in PREMIX 1 EACH IV STA (17:02)
[2016-11-27] MEDS ORDERED: LEVOFLOXACIN INJ 750 MG in PREMIX 1 EACH IV STA (17:02)
[2016-11-27] MEDS ORDERED: methylPREDNISolone SOD SUC 125 MG/2 ML VIAL IV STA (17:02)
--- NOTE | 2016-11-27 17:06 | Emergency Department Note ---
Arrival - Arrival Chief Complaint: Shortness of Breath Stated Complaint: sob ED Nursing Triage Note: pt reports body aches fever chills at home for three days. productive cough for one week. Mode of Arrival: Stretcher Limitations: No Limitations Source: Patient Time Seen by Provider: 11/27/16 17:01 - History of Present Illness HPI Narrative: This 51-year-old white female presents with a two-week history of persistent bothersome cough and increasing dyspnea on exertion over her baseline secondary to ongoing oxygen dependent pulmonary fibrosis. The patient describes nightly wheezing but no chills, fever, pleuritic chest pain, hemoptysis, or purulence. This is her fourth visit to a healthcare provider in the last week as she is certain she is developing pneumonia. At rest on O2 she does not appear to be in any medical distress nor has she coughed. Onset (ago): week(s) (Patient presents 2 weeks post onset of symptoms) Date of Last Menstrual Period: menopause Allergies/Adverse Reactions: Allergies Allergy/AdvReac Type Severity Reaction Status Date / Time fentanyl [From Duragesic] Allergy Severe RASH, Verified 04/09/16 13:08 SWELLING OF FACE AND EYES Home Medications: Home Medications Medication Instructions Recorded Confirmed Type ALPRAZolam [Xanax] 0.5 mg PO BID 02/01/15 11/27/16 History Albuterol Neb [Proventil Neb] 2.5 mg RESP TX Q4HR PRN 02/01/15 11/27/16 History Budesonide/Formoterol 160-4.5 2 puff INH BID 02/01/15 11/27/16 History [Symbicort 160-4.5] FLUoxetine [PROzac] 20 mg PO BID 02/01/15 11/27/16 History Lisinopril/Hydrochlorothiazide 1 each PO QAM 06/06/15 11/27/16 History [Lisinopril-Hctz 20-12.5 mg Tab] Gabapentin Cap/Tab [Neurontin 100 mg PO QAM 04/10/16 11/27/16 History Cap/Tab] HYDROcodone/ACETAMIN 10-325 [[place] 1 tablet PO TID 05/11/16 11/27/16 History 10-325] Warfarin [Coumadin] 10 mg PO BID 11/27/16 11/27/16 History predniSONE TAB [PredniSONE] 20 mg PO QAM 11/27/16 11/27/16 History Review of System - Review of System 12 point system: reviewed and no additional remarkable complaints except as stated - Review of System Constitutional: Present: as per HPI Respiratory: Present: as per HPI Medical,Surgical,& Family Hx - Medical History Cardio: History of: Hypertension Psychological: History of: Anxiety Disorders, Depression Neurology: History of: Migraine (OCCASIONAL) No history of: Seizures HEENT: History of: 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), Dental Problems (missing teeth) Endocrine: History of: Diabetes Mellitus (NIDDM) (when on steroids), Dyslipidemia Respiratory: History of: Asthma, Bronchitis, COPD, Obstructive Sleep Apnea (PT HAS CPAP), Pneumonia, Respiratory Problems (pulmonary fibrosis) Gastrointestinal: History of: GI Problems (VENTRAL HERNIA) Musculoskeletal: History of: Back/Neck Problems - Surgical History Abdominal Surgeries: Surgical HX of: Appendectomy, Cholecystectomy, EGD, Hernia Repair (Ventral hernia with mesh) Reproductive Surgeries: Surgical HX of;: Section (X3), Tubal Ligation - Family History Family History: Reports;: Family Cancer, Family Heart Disease, Family Hypertension, Family Psychiatric Problems, Family Stroke Denies;: Family Anesthesia Reaction, Family Diabetes - Social History Smoking Status: Former smoker Exam Physical Examination: GENERAL: Well developed, well nourished white female in no acute distress. HEENT: Normocephalic. No trauma. Moist mucous membranes. EOMI. PERRLA. ENT NML NECK: Supple. No adenopathy. CARDIAC: Regular. No murmurs. Heart rate 70 CHEST: Scattered anterior expiratory wheezes as well as basilar Velcro rales. No respiratory distress. O2 sat 96% on oxygen ABDOMEN: Soft. Nontender. Active bowel sounds. EXTREMITIES: No trauma. Normal ROM. No pedal edema. SKIN: No diaphoresis. No rash. NEURO: Alert. Neuro and no focal deficits. Vital Signs: Vital Signs Temperature 99.9 F H 11/27/16 17:50 Pulse Rate 81 11/27/16 18:30 Respiratory Rate 20 11/27/16 18:30 Blood Pressure 134/67 11/27/16 18:30 O2 Sat by Pulse Oximetry 98 11/27/16 18:40 Course - Reevaluation(s) Reevaluation #1: Discussed with patient that her CTA study was negative for any emboli and that she would need further evaluation per pulmonary to resolve this issue necessitating hospitalization. - Consultations Consultation #1: Discussed with hospitalist service who will admit for further evaluation treatment. Results - Labs Labs: Lab per Tricia: White blood cell count 8500, hematocrit 36, creatinine 1.0, BUN 14, sodium 144, potassium 3.4, BNP 304 I have reviewed the lab here and noted the borderline BNP, elevated d-dimer, and negative cardiac's. - Impressions EKG: Sinus rhythm at 72 with normal OR interval and QRS duration. Right axis deviation noted old septal [place] noted no acute injury pattern noted. - Diagnostic Findings Procedure: Chest x-ray: image reviewed by me, report reviewed by me (Per Tricia no interval change in fibrotic pattern) Disposition Clinical Impression: Pulmonary fibrosis Case discussed with: patient Disposition: Still a Patient Condition: Guarded Time of Disposition: 20:43
[2016-11-27] MEDS ORDERED: ALBUTEROL 2.5 MG/3 ML NEB RESP TX SCH (17:30)
--- NOTE | 2016-11-27 17:31 | EKG Report ---
Stationary ECG Study [facility] ER Test Date: 11/27/2016 5:29:07 PM Pat Name: MALI HATHAWAY Department: Room: Gender: F Tack Cutter: : 1965 Requested by: Anthony Weston Order Number: [id number] Reading MD: KRUNAL ALATORRE Intervals [place] Rate: 72 P: 70 TX: 131 QRS: 107 QRSD: 86 T: 48 QT: 386 QTc: 410 Interpretive Statements SINUS RHYTHM MARKED RIGHT AXIS DEVIATION SEPTAL MYOCARDIAL INFARCTION, PROBABLY OLD Electronically Signed On 11-28-16 13:44:27 CDT by KRUNAL ALATORRE [email or web address]
[2016-11-27] MEDS ORDERED: traMADol 50 MG TABLET ONE (17:37)
[2016-11-27] MEDS ORDERED: traMADol 50 MG TABLET PO STA (17:41)
[2016-11-27] MEDS ORDERED: LEVOFLOXACIN INJ 150 ML IV ONE (17:53)
[2016-11-27] MEDS ORDERED: methylPREDNISolone SOD SUC 125 MG/2 ML VIAL ONE (17:53)
[2016-11-27 18:15] LABS: PT Patient Result 10.6 SECS; Partial Thromboplastin Time 28.8 SECS (0-40); Troponin I Only < 0.015 NG/ML (0.00-0.045)
[2016-11-27] MEDS ORDERED: MAGNESIUM SULF RIDER 50 ML IV ONE (19:01)
[2016-11-27] MEDS ORDERED: METOCLOPRAMIDE 10 MG/2 ML VIAL ONE (19:09)
[2016-11-27] MEDS ORDERED: KETOROLAC 30 MG/1 ML VIAL ONE (19:09)
[2016-11-27] MEDS ORDERED: KETOROLAC 30 MG/1 ML VIAL IV STA (19:10)
[2016-11-27] MEDS ORDERED: METOCLOPRAMIDE 10 MG/2 ML VIAL IV STA (19:37)
--- NOTE | 2016-11-27 19:42 | CT Report ---
Exam: Post contrast CT angiography of the chest The total DLP is 1637 mGy*cm. Date: November 27, 2016 Indication: Shortness of breath, elevated d-dimer Comparison: May 11, 2016, February 09, 2016, March 06, 2015 Technical: Images were obtained from the thoracic inlet through the lung bases with 80 cc of Omnipaque 350 with axial and coronal imaging available for review. Dose reduction: This CT exam was performed using one or more of the following dose reduction techniques: Automated exposure control, automated adjustment of the mA and/or KV according to patient size, or use of iterative reconstruction technique. Findings: Pulmonary arteries:Pulmonary arteries are patent and well-opacified with no filling defects to suggest pulmonary emboli. Mediastinum/vessels/lymph nodes: Plaquing again noted along the arch and descending thoracic aorta. Persistent prominence of the mediastinal and hilar lymph nodes. Lungs: Interlobular septal thickening with chronic perihilar groundglass opacities, fibrosis and proximal perihilar bronchiectasis, unchanged in the interim. Thyroid: Thyroid gland appears within normal limits. No acute abnormality is identified within the visualized upper abdomen. BONES: No acute or suspicious appearing osseous abnormalities are identified. Remote left-sided rib fractures are again noted, unchanged in appearance. Impression: 1. Findings again consistent with pulmonary sarcoidosis, stable 2. No pulmonary embolism 3. No acute intrathoracic process. PROCEDURE INTERPRETED AT [facility] DEPARTMENT OF RADIOLOGY Final Report Signed by: Javi Suarez
--- NOTE | 2016-11-27 21:33 | Hospitalist History & Physical ---
History of Present Illness Chief complaint: worsening SOB History of present illness: Ms. Che is a 51 year old female who presents with worsening SOB and productive cough of greenish sputum for the past week along with wheezing, fevers, and chills. She states that she had a temperature of 101 today. She denies any CP. She has pulmonary fibrosis and uses 2L of oxygen. She states that over the past week, she had to use 3L of oxygen. She further endorses some bilateral ankle swelling. Her chronic orthopnea and PND are unchanged. She denies any sick contacts. She has been seen by at least 3 other health care providers in the past week for the same symptoms. She believes she has a pneumonia. She also states that she was diagnosed with a PE last month in [facility] and is on coumadin 10mg bid. Current INR is 1.0 While in the ER, she was given solumedrol and levaquin. Blood culture and UA were ordered. Home Medications Medication Instructions Recorded Confirmed Type ALPRAZolam [Xanax] 0.5 mg PO BID 02/01/15 11/27/16 History Albuterol Neb [Proventil Neb] 2.5 mg RESP TX Q4HR PRN 02/01/15 11/27/16 History Budesonide/Formoterol 160-4.5 2 puff INH BID 02/01/15 11/27/16 History [Symbicort 160-4.5] FLUoxetine [PROzac] 20 mg PO BID 02/01/15 11/27/16 History Lisinopril/Hydrochlorothiazide 1 each PO QAM 06/06/15 11/27/16 History [Lisinopril-Hctz 20-12.5 mg Tab] Gabapentin Cap/Tab [Neurontin 100 mg PO QAM 04/10/16 11/27/16 History Cap/Tab] HYDROcodone/ACETAMIN 10-325 [[place] 1 tablet PO TID 05/11/16 11/27/16 History 10-325] Warfarin [Coumadin] 10 mg PO BID 11/27/16 11/27/16 History predniSONE TAB [PredniSONE] 20 mg PO QAM 11/27/16 11/27/16 History Allergies Allergy/AdvReac Type Severity Reaction Status Date / Time fentanyl [From Duragesic] Allergy Severe RASH, Verified 04/09/16 13:08 SWELLING OF FACE AND EYES Medical,Surgical,& Family Hx - Medical History Cardio: History of: Hypertension Psychological: History of: Anxiety Disorders, Depression Neurology: History of: Migraine (OCCASIONAL) No history of: Seizures HEENT: History of: 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), Dental Problems (missing teeth) Endocrine: History of: Diabetes Mellitus (NIDDM) (when on steroids), Dyslipidemia Respiratory: History of: Asthma, Bronchitis, COPD, Obstructive Sleep Apnea (PT HAS CPAP), Pulmonary Embolism (per patient, diagnosed with PE about one month ago at [facility]), Pneumonia, Respiratory Problems (pulmonary fibrosis) Gastrointestinal: History of: GI Problems (VENTRAL HERNIA) Musculoskeletal: History of: Back/Neck Problems - Surgical History Abdominal Surgeries: Surgical HX of: Appendectomy, Cholecystectomy, EGD, Hernia Repair (Ventral hernia with mesh) Reproductive Surgeries: Surgical HX of;: Section (X3), Tubal Ligation - Family History Family History: Reports;: Family Cancer, Family Heart Disease, Family Hypertension, Family Psychiatric Problems, Family Stroke Denies;: Family Anesthesia Reaction, Family Diabetes - Social History Smoking Status: Former smoker (smoked 1/2 ppd x 10 years, quit 5 years ago) 12 point system: reviewed and no additional remarkable complaints except as stated Exam - Constitutional Vitals: Period Temp Pulse Resp BP Sys/Ahuja Pulse Ox Last 24 Hr 99.9 F-99.9 F 74-85 20-22 134-142/67-83 94-98 General appearance: no acute distress, over weight - Head Head exam: Present: normal inspection, normocephalic, atraumatic - Eye Eye exam: Present: EOMI. Absent: conjunctival injection, scleral icterus - ENT ENT exam: Present: normal oropharynx - Respiratory Respiratory exam: Present: decreased breath sounds (unlabored respirations, coarse expiratory breath sounds, velcro crackles in the bases, descent air movement; no wheezing), prolonged expiratory phase, rales, rhonchi. Absent: wheezes - Cardiovascular Cardiovascular exam: Present: regular rate and rhythm. Absent: diastolic murmur , systolic murmur - GI/Abdominal GI/Abdominal exam: Present: normal bowel sounds, soft. Absent: distended, guarding, tenderness - Extremities Exam Extremities exam: Present: edema (mild bilateral ankle edema) - Neurological Exam Neurological exam: Present: alert, oriented X3 - Psychiatric Psychiatric exam: Present: normal affect, normal mood Results - Labs Labs: Labs from [facility]: bmp: 144 104 14 <109 3.4 35 1.0 11.1 cbc: 8.5> <272 36.8 BNP: 304 Here: d-dimer: 1.0 - EKG EKG results: sinus rhythm (q wave in septal lead) - Impressions This is a 51 yo female who presents with worsening SOB, cough, and wheezing. Active issues: 1. Pulmonary fibrosis with acute exacerbation 2. Acute bronchitis 3. h/o PE per patient, on unique dose of coumadin: 10mg bid; subtherapeutic INR ; chest CT today shows no PE 4. hypoK: mild at outside facility 5. Comorbid conditions: history of HTN, COPD, depression, MILA on CPAP, anxiety, chronic pain syndrome, and anxiety Plan: admit; continue steroids/antibiotics/bronchodilators/anti tussive therapy/ consult pulmonary; unclear about history of PE while on unique dose of coumadin ; will go ahead and give one dose of weight based lovenox; will ask for records from [facility]; hopefully pulmonary can help clarify history of PE; replete K; monitor; continue home medications as appropriate; GI prophalaxis; weight based lovenox. The plan of care may be modified as more information becomes available. - Diagnostic Findings Procedure: CT - chest: other (pulmonary fibrosis, no PE)
[2016-11-27] MEDS ORDERED: PANTOPRAZOLE 40 MG VIAL IV ONE (21:46)
[2016-11-27] MEDS ORDERED: ALBUTEROL/IPRATROPIUM 3 ML NEB RESP TX PRN (21:47)
[2016-11-27] MEDS ORDERED: ENOXAPARIN 80 MG/0.8 ML SYRINGE SUBCUT STA (21:47)
[2016-11-27] MEDS ORDERED: POTASSIUM CHLORIDE 20 MEQ TABLET PO PRN (21:48)
[2016-11-27] MEDS ORDERED: LEVOFLOXACIN INJ 750 MG in PREMIX 1 EACH IV SCH (22:30)
[2016-11-27] MEDS: LISINOPRIL/HCTZ 20-12.5 MG TABLET PO SCH (22:59)
[2016-11-27] MEDS: methylPREDNISolone SOD SUC 125 MG/2 ML VIAL IV SCH (23:00)
[2016-11-28] MEDS ORDERED: ALPRAZolam 0.5 MG TABLET PO ONE (00:51)
[2016-11-28] MEDS: methylPREDNISolone SOD SUC 125 MG/2 ML VIAL IV SCH ×4 (01:00→18:38)
[2016-11-28 04:44] LABS: Hematocrit 36.3 VOL% (35.7-47.0); Hemoglobin 11.3 GM/DL (12.0-16.0); Immature Granulocytes % 0.6 %; Immature Granulocytes Absolute 0.03 #; Lymphocytes # 0.9 10*3/uL (1.4-4.0); Lymphocytes % 15.9 % (21.3-54.2); Mean Corpuscular HGB Conc 31.1 GM/DL (32-36); Mean Corpuscular Hemoglobin 27 PG (27-34); Mean Corpuscular Volume 87.3 FL (87-102); Mean Platelet Volume 10.9 FL (9.6-12.0); Monocytes % 0.7 % (1.7-12.7); Neutrophils # 4.5 10*3/uL (1.4-7.4); Neutrophils % 82.8 % (38.7-73.9); Platelet Count 280 T/CUMM (130-400); Red Blood Count 4.16 MC/CUMM (3.8-5.5); Red Cell Distribution Width 16.1 % (9.3-17.3); White Blood Count 5.4 T/CUMM (4-12)
[2016-11-28 05:00] LABS: Calcium 8.6 MG/DL (8.5-10.1); Magnesium 2.7 MG/DL (1.8-2.4); Osmolality,Calculated 281.4 MOS/KG (273-304); Potassium 4.3 MMOL/L (3.5-5.1)
[2016-11-28 05:14] LABS: INR 1.1; PT Patient Result 11.3 SECS; Partial Thromboplastin Time 33.4 SECS (0-40)
[2016-11-28 05:50] LABS: Hypochromasia 1+; Microcytosis 1+
[2016-11-28 05:51] LABS: Platelet Estimate Normal
[2016-11-28 06:28] LABS: Apearance,Urine CLEAR (Clear); Bilirubin,Urine Negative (Negative); Blood, Urine Moderate mg/dL (Negative); Glucose,Urine (UA) Negative (Negative); Ketones,Urine Negative (Negative); Mucus,Urine Occasional /LPF (Occasional); Nitrite,Urine Negative (Negative); Protein,Urine Negative; RBC,Urine 2 /HPF (0-4); Squamous Epithelial Cell,Urine Occasional /HPF (0-10); Urine Color Straw (Yellow); Urine Specific Gravity 1.013 (1.001-1.035); Urine Urobilinogen < 2.0 EU/DL (0.2-1.0)
[2016-11-28] MEDS: LISINOPRIL/HCTZ 20-12.5 MG TABLET PO SCH (09:26)
[2016-11-28] MEDS ORDERED: ALBUTEROL 2.5 MG/3 ML NEB RESP TX PRN (15:00)
--- NOTE | 2016-11-28 15:21 | Pulmonology Consult Note ---
History of Present Illness Chief complaint: Lung infection pulmonary fibrosis. GERD History of present illness: Ms. Che is a 51 year old white female whom I been asked to see in pulmonary consultation for evaluation and treatment. This patient is usually followed by Dr. Tj Bills. He will see her on Wednesday. This patient was referred because of a cough productive of green sputum for over a week. She has had increased wheezing along with fever and chills and. She said her temps have been as high as 101. She had had no hemoptysis associated with this. She did have increased shortness of breath and dyspnea on exertion. Patient has a history of solid dysphasia. She also has significant gastroesophageal reflux which often wakes her up at night with gastric contents in her throat. She says she has never had a knee scope. This causes her to cough and to have acute respiratory distress. Patient says she has a diagnosis of pulmonary fibrosis. She denies cardiac angina palpitations. Patient has recently had some episodes of hypotension requiring adjustment of her blood pressure medicines The remainder of the review of systems is negative. Allergies. Duragesic. Home medicines. Xanax. Proventil nebulizer. Symbicort 160/4.5. Lisinopril/ hydrochlorothiazide 20/12.5. Neurontin 100 mg every morning. Hydrocodone/ acetaminophen 10/325 one 3 times daily. Coumadin 10 mg twice a day. Prednisone 20 Past history. Pulmonary fibrosis. Recurrent pulmonary infections. Asthma. High blood pressure. Chronic pain. History of pulmonary emboli. Chronic anticoagulation. History of depression. Occasional migraine headaches. Blindness in the left eye. Bhb-kzizooq-hhprzstcb diabetes mellitus when on steroids. Hyperlipidemia. Obstructive sleep apnea. COPD. Ventral hernia. C- section 3. Social history. Patient smoked a half a pack of cigarettes for 10 years and she quit smoking around 2011. Family history. Positive for high blood pressure heart disease psychiatric problems stroke and cancer CT scan of the chest. 5 lobe interstitial lung disease. I see no hilar adenopathy. There were no pulmonary emboli seen Chest x-ray. 11/28/2016. My interpretation. Heart size is normal. Pulmonary arteries are top normal. There is no hilar adenopathy and I do not see a right paratracheal lymph node. There is 5 lobe interstitial scarring consistent with pulmonary fibrosis and/or idiopathic pulmonary fibrosis. Lab. White count is 5483 segs and 16 lymphs. H&H 11.3/36.3. Electrolytes normal. Creatinine is 0.8. BUN is 15. Magnesium is 2.7. Calcium is normal. Natruretic peptide is 107. Cardiac enzymes are negative. Urinalysis is normal. No other test are available. EKG. Regular sinus rhythm. Normal axis. Normal STs and T's. Normal tracing. Home medicines. I have reviewed him and continued. Physical exam. Vital signs. See below. Afebrile. Face. No edema of the lips or tongue. Cranial nerves. Intact. Blindness of the left eye. Long track motor functions intact. Gait was not tested and sensory exam was not done Neck. Symmetrical. No masses. Lymphatics. No submandibular cervical supraclavicular or epitrochlear adenopathy. Arterial. Carotids are decreased and mainly behind the sternocleidomastoid muscles. Upper extremity pulses are palpable lower extremity pulses nonpalpable no evidence of lower extremity ischemia. Venous exam. Neck and upper extremities are normal. Mild chronic venous stasis of both lower extremities. +1/4 edema both feet. Chest. Symmetrical. Slight prolongation of expiration with coarse congestion. Heart. No gallop Abdomen. Nontender. Bowel sounds are present. No organs palpated Extremities. No clubbing. Degenerative changes of the knees. Faint edema of both feet. Mild chronic venous stasis changes over both lower legs. Musculoskeletal. Age-appropriate loss of normal curvature cervical thoracic and lumbar spine The remainder the physical exam was negative. Impression. 1. Acute bronchitis. Bacterial. 2. Pulmonary fibrosis. 2.1. History of COPD and asthma. 3. Solid dysphasia. Suspect esophageal stricture 4. Severe gastroesophageal reflux with nocturnal microaspiration 5. Blind left eye 6. High blood pressure with recent blood pressure problems 7. Ure-ebfpivz-xpggmpial diabetes mellitus exacerbated by steroids 8. See past history. 9. Recent acute pulmonary emboli. On anticoagulation. Plan. 1. Steroids 2. Antibiotics 3. Inhalation therapy with DuoNeb's 4 times daily and as needed 4. Sputum for Gram stain culture and sensitivity 5. Anti-reflux regimen 6. Consider E scope with dilatation. 7. Doppler venograms of lower extremity Home Medications Medication Instructions Recorded Confirmed Type ALPRAZolam [Xanax] 0.5 mg PO BID 02/01/15 11/27/16 History Albuterol Neb [Proventil Neb] 2.5 mg RESP TX Q4HR PRN 02/01/15 11/27/16 History Budesonide/Formoterol 160-4.5 2 puff INH BID 02/01/15 11/27/16 History [Symbicort 160-4.5] FLUoxetine [PROzac] 20 mg PO BID 02/01/15 11/27/16 History Lisinopril/Hydrochlorothiazide 1 each PO QAM 06/06/15 11/27/16 History [Lisinopril-Hctz 20-12.5 mg Tab] Gabapentin Cap/Tab [Neurontin 100 mg PO QAM 04/10/16 11/27/16 History Cap/Tab] HYDROcodone/ACETAMIN 10-325 [Morgan 1 tablet PO TID 05/11/16 11/27/16 History 10-325] Warfarin [Coumadin] 10 mg PO BID 11/27/16 11/27/16 History predniSONE TAB [PredniSONE] 20 mg PO QAM 11/27/16 11/27/16 History Allergies Allergy/AdvReac Type Severity Reaction Status Date / Time fentanyl [From Duragesic] Allergy Severe RASH, Verified 04/09/16 13:08 SWELLING OF FACE AND EYES Exam (Pulmonay) H&P - Constitutional Vitals: Period Temp Pulse Resp BP Sys/Ahuja Pulse Ox Last 24 Hr 97.8 F-99.9 F 62-94 16-22 114-158/55-96 83-98 Medical,Surgical,& Family Hx - Medical History Cardio: History of: Hypertension Psychological: History of: Anxiety Disorders, Depression Neurology: History of: Migraine (OCCASIONAL) No history of: Seizures HEENT: History of: 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), Dental Problems (missing teeth) Endocrine: History of: Diabetes Mellitus (NIDDM) (when on steroids), Dyslipidemia Respiratory: History of: Asthma, Bronchitis, COPD, Obstructive Sleep Apnea (PT HAS CPAP), Pulmonary Embolism (per patient, diagnosed with PE about one month ago at [facility]), Pneumonia, Respiratory Problems (pulmonary fibrosis) Gastrointestinal: History of: GI Problems (VENTRAL HERNIA) Musculoskeletal: History of: Back/Neck Problems - Surgical History Abdominal Surgeries: Surgical HX of: Appendectomy, Cholecystectomy, EGD, Hernia Repair (Ventral hernia with mesh) Reproductive Surgeries: Surgical HX of;: Section (X3), Tubal Ligation - Family History Family History: Reports;: Family Cancer, Family Heart Disease, Family Hypertension, Family Psychiatric Problems, Family Stroke Denies;: Family Anesthesia Reaction, Family Diabetes - Social History Smoking Status: Former smoker Type of Drug Use: None Results - Labs CBC & BMP: 11/28/16 02:31 11/28/16 02:31
--- NOTE | 2016-11-28 15:42 | XRay Report ---
Portable chest November 28, 2016 Indication: Shortness of breath Comparison images from previous day at 1416 hours Findings: Chronic interstitial changes with hilar prominence again noted. Heart size is normal. No acute osseous abnormalities. Visualized upper abdomen is unremarkable. Impression: Chronic fibrotic/interstitial changes most suggestive of underlying pulmonary sarcoidosis. No acute pathology is appreciated PROCEDURE INTERPRETED AT [facility] DEPARTMENT OF RADIOLOGY Final Report Signed by: Javi Suarez
[2016-11-28] MEDS: FLUoxetine 20 MG CAPSULE PO SCH ×2 (17:31→23:52)
[2016-11-28] MEDS: ALPRAZolam 0.5 MG TABLET PO SCH ×2 (17:31→23:52)
[2016-11-28] MEDS: LEVOFLOXACIN INJ 750 MG in PREMIX 1 EACH IV SCH (18:38)
[2016-11-28] MEDS ORDERED: WARFARIN 5 MG TABLET ONE (20:10)
[2016-11-28] MEDS: ALBUTEROL/IPRATROPIUM 3 ML NEB RESP TX SCH (20:13)
[2016-11-28] MEDS: WARFARIN 10 MG TABLET PO SCH (20:23)
[2016-11-28] MEDS: BUDESONIDE/FORMOTEROL 160-4.5 INHALER 6 GM INH SCH (20:24)
--- NOTE | 2016-11-28 20:26 | Ultrasound Report ---
Exam: US venous doppler LE BI Indication: Leg pain and swelling Date: November 28, 2016 at 1551 hours Findings: The right common femoral, superficial femoral, popliteal and proximal saphenous saphenous veins are patent with normal waveform phasicity and augmentation as well as complete vessel compressibility. There is no evidence of popliteal or Zamorano's cyst. The left common femoral, superficial femoral, popliteal and proximal saphenous saphenous veins are patent with normal waveform phasicity and augmentation as well as complete vessel compressibility. There is no evidence of popliteal or Zamorano's cyst. Impression: No evidence of deep venous thrombosis within bilateral lower extremity Ultrasound images were captured and stored. PROCEDURE INTERPRETED AT [facility] DEPARTMENT OF RADIOLOGY Final Report Signed by: Javi Suarez
[2016-11-28] MEDS ORDERED: ALPRAZolam 0.5 MG TABLET PO SCH (21:00)
[2016-11-28] MEDS ORDERED: FLUoxetine 20 MG CAPSULE PO SCH (21:00)
[2016-11-29] MEDS: methylPREDNISolone SOD SUC 125 MG/2 ML VIAL IV SCH ×5 (00:39→23:24)
[2016-11-29] MEDS: ALBUTEROL/IPRATROPIUM 3 ML NEB RESP TX SCH ×4 (07:29→20:23)
[2016-11-29] MEDS: LISINOPRIL/HCTZ 20-12.5 MG TABLET PO SCH (08:49)
[2016-11-29] MEDS: FLUoxetine 20 MG CAPSULE PO SCH ×2 (08:49→20:31)
[2016-11-29] MEDS: WARFARIN 10 MG TABLET PO SCH ×2 (08:49→20:31)
[2016-11-29] MEDS: GABAPENTIN 100 MG CAPSULE PO SCH (08:50)
[2016-11-29] MEDS: ALPRAZolam 0.5 MG TABLET PO SCH ×2 (08:50→20:31)
[2016-11-29] MEDS: BUDESONIDE/FORMOTEROL 160-4.5 INHALER 6 GM INH SCH ×2 (08:51→20:37)
--- NOTE | 2016-11-29 13:43 | Pulmonology Progress Note ---
Pulmonary - PN: Subj Interval history: This is a 51-year-old white female whom I saw in pulmonary consultation on 2016. She is a patient of Dr. Tj Bills who is followed her for pulmonary fibrosis. Note that the patient does not have a bilateral symmetrical hilar adenopathy and right paratracheal lymph node characteristic of sarcoidosis and note that the only diagnosis of sarcoidosis we have is a CT scan of the chest diagnosis which of course is not definitive. In this case I suspect that she does not have sarcoidosis. She has sarcoidosis Dr. Tj Bills would have told her. My impressions were. 1. Acute bronchitis. Bacterial. 2. Pulmonary fibrosis. 2.1. History of COPD and asthma. 3. Solid dysphasia. Suspect esophageal stricture 4. Severe gastroesophageal reflux with nocturnal microaspiration 5. Blind left eye 6. High blood pressure with recent blood pressure problems 7. Ylh-fayfutv-bestiqnic diabetes mellitus exacerbated by steroids 8. See past history. 9. Recent acute pulmonary emboli. On anticoagulation. 11/29/2016. This patient chest sounds much better today she has less congestion WHEEZING. She has solid dysphasia and she has gastroesophageal reflux. I have reviewed her chest x-ray and CT scan. She does not have the characteristic pattern of aspirator's. I discussed this with her today. Today's biggest problem is an incessant cough. I have started the patient on Tessalon Perles 200 mg p.o. 3 times daily INR is 1.0. Previous labs been reviewed. There are no positive cultures. Doppler venograms are negative. Physical exam. Vital signs. See below Psychiatric. Oriented 3. Face. Symmetrical. No edema of the lips or tongue. Neck. Symmetrical. No meningismus. Lymphatics. No submandibular cervical supraclavicular or epitrochlear adenopathy. New Chest. Slight coarseness of large airway sounds no wheezes. Heart. No gallop Abdomen. Nontender. Bowel sounds are positive Extremities. Nothing to suggest deep venous thrombophlebitis. Neurologic. Cranial nerves are intact long track motor functions intact. Plan. 11/28/2016 1. Steroids 2. Antibiotics 3. Inhalation therapy with DuoNeb's 4 times daily and as needed 4. Sputum for Gram stain culture and sensitivity 5. Anti-reflux regimen 6. Consider E scope with dilatation. 7. Doppler venograms of lower extremity 11/29/2016. 1. See today's note above. 2. Demarco Gonzalez 3. Continue present regimen 4. Dr. Tj Bills will take over on 12/01/2016 Exam (Progress Note) - Constitutional Vitals: Period Temp Pulse Resp BP Sys/Ahuja Pulse Ox Last 24 Hr 96.0 F-98.6 F 65-112 15-20 121-166/65-95 91-99 Results - Labs CBC & BMP: 11/28/16 02:31 11/28/16 02:31
[2016-11-29] MEDS: BENZONATATE 100 MG CAPSULE PO SCH ×2 (15:00→20:31)
--- NOTE | 2016-11-29 16:30 | Hospitalist Progress Note ---
Hospitalist: Subjective Interval history: 51 year old female who presents with worsening SOB and productive cough of greenish sputum for the past week along with wheezing, fevers, and chills. She has history of pulmonary fibrosis. Patient reports dysphagia to solids going on for a few weeks. Exam - Constitutional Vitals: Period Temp Pulse Resp BP Sys/Ahuja Pulse Ox Last 24 Hr 96.0 F-97.7 F 65-112 15-20 121-166/65-95 94-99 Exam: General: No Acute Distress HEENT: Normocephalic, atraumatic, Extra ocular movements intact Neck: Supple, No JVD Chest: Bilateral coarse lung crackles CV: S1 + S2 audible without murmur, gallop or rub Abd: soft, NT, Non-distended, BS + Ext: No edema Skin: No purpura, bruising or rash Rheumatologic: No Joint deformities Neurologic: Strength 5/5 all extremities, no gross sensory deficits Results - Labs CBC & BMP: 11/28/16 02:31 11/28/16 02:31 - Impressions Assessment and plan: Acute bacterial bronchitis: Continue IV Levaquin and steroids Chronic pulmonary fibrosis. Chronic asthma and COPD: Continue nebulizers Dysphagia: GI evaluation Severe gastroesophageal reflux with nocturnal microaspiration Essential hypertension: Controlled DM-II, monitor Accu-Cheks as she is on steroids History of pulmonary emboli, on high-dose Coumadin, INR still subtherapeutic monitor
[2016-11-29] MEDS: LEVOFLOXACIN INJ 750 MG in PREMIX 1 EACH IV SCH (18:06)
[2016-11-29] MEDS ORDERED: diphenhydrAMINE 50 MG/1 ML VIAL IV ONE (19:59)
[2016-11-29] MEDS ORDERED: WARFARIN 5 MG TABLET ONE (19:59)
[2016-11-29] MEDS ORDERED: PROCHLORPERAZINE 10 MG TABLET PO STA (20:00)
[2016-11-30 03:43] LABS: INR 1.8; PT Patient Result 20.1 SECS
[2016-11-30] MEDS: methylPREDNISolone SOD SUC 125 MG/2 ML VIAL IV SCH ×3 (05:20→18:03)
[2016-11-30 08:30] LABS: Basophils % 0.1 % (0.0-0.8); Hematocrit 36.9 VOL% (35.7-47.0); Hemoglobin 11.7 GM/DL (12.0-16.0); Immature Granulocytes % 0.9 %; Immature Granulocytes Absolute 0.11 #; Lymphocytes # 1.1 10*3/uL (1.4-4.0); Lymphocytes % 8.8 % (21.3-54.2); Mean Corpuscular HGB Conc 31.7 GM/DL (32-36); Mean Corpuscular Hemoglobin 27 PG (27-34); Mean Corpuscular Volume 85.8 FL (87-102); Mean Platelet Volume 10.5 FL (9.6-12.0); Monocytes # 0.1 10*3/uL (0.11-0.8); Monocytes % 1.1 % (1.7-12.7); Neutrophils % 89.1 % (38.7-73.9); Platelet Count 293 T/CUMM (130-400); Red Cell Distribution Width 16.1 % (9.3-17.3); White Blood Count 12.4 T/CUMM (4-12)
[2016-11-30] MEDS: ALBUTEROL/IPRATROPIUM 3 ML NEB RESP TX SCH ×4 (08:34→20:10)
[2016-11-30 08:58] LABS: Alanine Aminotransferase 30 U/L (13-56); Alkaline Phosphatase 90 U/L (45-117); Aspartate Amino Transferase 10 U/L (0-37); Bilirubin,Total < 0.39 MG/DL (0.2-1.0); Blood Urea Nitrogen 25 MG/DL (7-18); Calcium 8.8 MG/DL (8.5-10.1); Glucose 144 MG/DL (74-106); Magnesium 2.5 MG/DL (1.8-2.4); Osmolality,Calculated 285.4 MOS/KG (273-304); Phosphorous 3.4 MG/DL (2.5-4.9); Sodium 140 MMOL/L (136-145); Total Protein 6.7 G/DL (6.4-8.3)
[2016-11-30] MEDS: LISINOPRIL/HCTZ 20-12.5 MG TABLET PO SCH (09:05)
[2016-11-30] MEDS: GABAPENTIN 100 MG CAPSULE PO SCH (09:05)
[2016-11-30] MEDS: FLUoxetine 20 MG CAPSULE PO SCH ×2 (09:05→21:42)
[2016-11-30] MEDS: ALPRAZolam 0.5 MG TABLET PO SCH ×2 (09:05→21:24)
[2016-11-30] MEDS: BENZONATATE 100 MG CAPSULE PO SCH ×3 (09:05→21:24)
[2016-11-30] MEDS: WARFARIN 10 MG TABLET PO SCH ×2 (09:05→21:24)
[2016-11-30] MEDS: BUDESONIDE/FORMOTEROL 160-4.5 INHALER 6 GM INH SCH ×2 (09:05→21:30)
--- NOTE | 2016-11-30 09:37 | Hospitalist Progress Note ---
Assessment and Plan (1) Acute bronchitis with chronic obstructive pulmonary disease (COPD) Status: Acute Assessment and plan: We will continue antibiotic coverage and intravenous corticosteroids as previously ordered. Continue inhaled bronchodilator treatments as previously ordered and recheck chest x-ray in a.m. Current Visit: No (2) Hyperglycemia Status: Acute Assessment and plan: Blood glucose levels remain moderately elevated. This is largely attributed to the current corticosteroid use. We will continue Accu-Cheks with sliding scale coverage as previously ordered Current Visit: No (3) Hx pulmonary embolism Status: Acute Assessment and plan: PT and INR noted at 1.8/20.1 today. We will continue Coumadin 10 mg p.o. twice daily and recheck PT/INR in a.m. Current Visit: Yes Hospitalist: Subjective Interval history: Patient seen and examined; chart reviewed. No significant overnight events reported per staff. Patient continues to verbalize difficulty swallowing. Gastrointestinal consultation has been requested. Exam - Constitutional Vitals: Period Temp Pulse Resp BP Sys/Ahuja Pulse Ox Last 24 Hr 96.0 F-97.6 F 57-112 18-20 121-156/63-92 90-99 General appearance: normal weight, no acute distress - Head Head exam: Present: normal inspection, normocephalic, atraumatic - Eye Eye exam: Present: EOMI. Absent: conjunctival injection Pupils: Present: LIVAN, normal accommodation - ENT ENT exam: Present: normal exam, normal external ear exam, normal oropharynx - Neck Neck exam: Present: normal inspection. Absent: lymphadenopathy, meningismus, tenderness, thyromegaly - Respiratory Respiratory exam: Present: wheezes (Scattered) - Cardiovascular Cardiovascular exam: Present: regular rate and rhythm. Absent: carotid bruit, diastolic murmur, gallop, JVD, rubs, systolic murmur - Extremities Exam Extremities exam: Present: normal inspection, normal capillary refill, full ROM. Absent: edema - Back Exam Back exam: Present: normal inspection - Neurological Exam Neurological exam: Present: alert, oriented X3, CN II-XII intact - Psychiatric Psychiatric exam: Present: normal affect, normal mood - Skin Skin exam: Present: normal color, warm, dry Results - Labs CBC & BMP: 11/30/16 08:06 11/30/16 08:06 Lab Results: I have reviewed the past 24 hour labs
--- NOTE | 2016-11-30 10:12 | Gastrointestinal Consult Note ---
Assessment and Plan - Time spent with patient Time spent with patient: Greater than 30 minutes (1) Dysphagia Status: Acute Current Visit: Yes (2) Screening for malignant neoplasm of colon Status: Acute Current Visit: Yes (3) Family history malignant neoplasm of biliary tract Status: Acute Current Visit: Yes (4) Interstitial lung disease Status: Chronic Current Visit: No (5) Acute exacerbation of chronic obstructive airways disease Status: Acute Assessment and plan: PLEASE NOTE -- automatic citation of patient information is unavoidable in this electronic note. I have made a reasonable effort to review the information cited , but it is not a part of my evaluation, impression, or recommendation unless specifically discussed in the dictated text that follows. As well, voice recognition software was used in the creation of this clinical note. Reasonable effort was made to identify and correct gross errors. Despite proofreading, errors in manager reading may be present, including nonsense verbiage at times. If you encounter such an error, please contact me at [phone] for discussion and correction. -- Dr. Schmid Chief complaint/Consult Question: Solid food dysphagia Consult requested by: Michele History of present illness: This is a new patient, a 51-year-old woman with pulmonary fibrosis on baseline oxygen, subacute PE on Coumadin, admitted with INR of 1, presenting with fever and productive cough. Patient states that she has had solid food dysphagia for approximately 6-7 years, but very intermittent until the last year, for the last year has been very regular to solids and intermittent pills, progressively worsening. No dysphagia to liquids. No prior impaction. This is associated with significant heartburn after every meal , as well as coughing after every meal. Often start with heartburn, leading to coughing, with significant coughing fits leading to emesis versus food regurgitation. Sensation of food bolus gets hung up in the upper sternal area, which leads to an uncomfortable sensation, coughing, and food bolus regurgitation. She pretreats herself prior to all meals with Mylanta or Pepto, has never been on a PPI or H2 marcelino that she can recall. Has never had an EGD or colonoscopy. Endorses weight gain not weight loss. Prior smoker half a pack per day for 10 years, quit . Family history of gastrointestinal cancers pancreatic in a maternal grandmother and father. Pulmonary noted, and patient confirmed, significant gastroesophageal reflux which often wakes her at night with gastric contents in her throat which causes her to cough and have acute respiratory distress. GI review of systems included: heartburn, regurgitation, early satiety, dysphagia, odynophagia, abdominal pain, nausea, vomiting, hematemesis, weight loss, weight gain, fever, chills, fatigue, decreased appetite, diarrhea, constipation, hematochezia, melena, bloating, malodorous flatus, anal pain, or NSAID use, and was negative except as noted above. REVIEW OF SYSTEMS: Complete other review of systems negative except as noted in the HPI. Outpatient medications: Personally reviewed Prednisone 20 mg every morning Coumadin 10 mg p.o. twice daily Lisinopril/hydrochlorothiazide 20/12.5 every morning Laurel 10/325 1 tab 3 times daily Neurontin 100 mg every morning Prozac 20 mg p.o. twice daily Symbicort 2 puffs twice daily Albuterol every 4 hours as needed Xanax 0.5 mg p.o. twice daily Inpatient medications: Personally reviewed Solu-Medrol 125 mg IV every 6 hours scheduled Coumadin 10 mg p.o. twice daily Albuterol every 4 hours as needed Duo nebs 4 times daily scheduled plus every 4 as needed Xanax 0.5 mg p.o. twice daily Tessalon Perles 200 mg p.o. 3 times daily Symbicort Prozac 20 mg p.o. twice daily Neurontin 100 mg p.o. every morning Robitussin DM every 6 hours as needed Laurel Levofloxacin 750 mg every 24 Lisinopril/hydrochlorothiazide p.o. daily Potassium as needed Past Medical History: Personally reviewed Social history: Prior tobacco 5 total pack years, 10 years at half a pack per day, quit 2004. No alcohol Family history: Maternal grandmother with pancreatic cancer age 87 Father with pancreatic cancer age 53 PHYSICAL EXAMINATION: CONSTITUTIONAL: Vital signs reviewed as documented above. In no acute distress. Nontoxic-appearing. EYES: Anicteric conjunctiva. Extra-ocular movements are intact and symmetric. EARS: Able to hear speech at conversational volume level, no external trauma/ masses. MOUTH: No oral/mouth lesions or ulcers. NECK: No masses or crepitus. Thyroid is of normal size and symmetric. HEART: Regular rate, regular rhythm LUNGS: No increased work of breathing or accessory muscle use. Currently on oxygen GI/ABDOMEN: Obese abdomen, soft, nontender to palpation, no rebound tenderness, nondistended, no rigidity. No palpable mass. No appreciable hepatosplenomegaly. SKIN: No rash on face, arms, or hands. No palpable lesions MUSCULOSKELETAL: Normal gait. Muscle tone appears normal without any abnormal movements. PSYCH: Normal affect. Alert and oriented to person, place, and time. Laboratory: Personally reviewed CBCWBC increased from 5.4-12.4, hemoglobin 11.7 stable, platelet 293, neutrophil predominant 89% INR 1.8 today, 1.0 yesterday Chemistry from 11/28/16generally within normal limits, creatinine 0.8 Troponin undetectable, BNP 107 UA within normal limits Blood cultures drawn 11/27/16 at 5 PM, no growth to date Radiology: Personally reviewed reports and images Lower extremity Doppler from 11/28/16no evidence of DVT bilaterally Chest x-ray from 11/28/16radiology interpretation : chronic fibrotic interstitial changes most suggestive of underlying pulmonary sarcoidosis. No acute pathology is appreciated. CT of the chest 11/27/2016 radiology interpretation: Persistent prominence of the mediastinal and hilar lymph nodes. Pulmonary arteries are patent and well opacified with no filling defects to suggest pulmonary emboli. Intralobar septal thickening with chronic perihilar groundglass opacities, fibrosis proximal perihilar bronchiectasis, unchanged in the interim. Findings again consistent with pulmonary sarcoidosis, stable. No PE. No acute intrathoracic process. Assessments: #Esophageal dysphagsiato solids and pills. Chronic, progressive. Can cause cough from both vagal nerve irritation down near the GE junction, as well as patient appears to be having regurgitation with possible aspiration events as well. Differential diagnosis includes esophagitis, Schatzki ring, muscular ring , malignancy less likely, motility disorder. Recent lung imaging done here, with radiologist suggested this may be sarcoidosis. Sarcoidosis of the GI tract can cause motility disorders. #Pulmonary fibrosis with acute exacerbation of bronchitisconsideration of sarcoidosis as well as recurrent aspiration #Other specified counseling -- The patient was seen for greater than 30 minutes. The patient was counseled for greater than 50% of this time regarding differential diagnosis, likely diagnosis, diagnostic and therapeutic alternatives, risks/benefits/alternatives of medications and procedures, and plan of care generally. The patient expressed understanding and wishes to proceed. Recommendations: -Barium esophagram, as dilation is contraindicated if patient is anticoagulated -Start PPI twice daily, take on an empty stomach, must eat 30-60 minutes later. Recommend taking before breakfast and before dinner. -Diet modification, with soft or finely chopped foods, modify all pill medications if possible to smallest pills, crushable, or to liquids for now -Primary team to request outside records to see whether PE was present, as is no longer seen on CT chest, negative DVT, and patient reporting no prior anticoagulation injections, and no monitoring of her Coumadin since discharge/ diagnosis 3 weeks ago. This will directly affect our ability to do an EGD with dilation if needed -EGD as an inpatient if able to come off anticoagulation, pending barium esophagram. Would perform biopsies of the small bowel, stomach, as well as esophagus to see if sarcoidosis is present in the GI tract, as well as for any other GI related indication. -Patient is due for screening colonoscopy, this can be arranged as an outpatient , or coordinated with EGD if convenient and patient off anticoagulation -First and second-degree family member with pancreatic cancer suspicious for possible genetic related syndrome. Recommend outpatient evaluation with GI for consideration of pancreatic cancer screening or genetic counseling. Continue to avoid alcohol and tobacco products. I have spoken directly with Dr. Bautista regarding my findings, assessment and recommendations. Taylor Schmid MD, MPH STAFF [employer] Current Visit: No History of Present Illness History of present illness: Ms. Che is a 51 year old female Home Medications Medication Instructions Recorded Confirmed Type ALPRAZolam [Xanax] 0.5 mg PO BID 02/01/15 11/27/16 History Albuterol Neb [Proventil Neb] 2.5 mg RESP TX Q4HR PRN 02/01/15 11/27/16 History Budesonide/Formoterol 160-4.5 2 puff INH BID 02/01/15 11/27/16 History [Symbicort 160-4.5] FLUoxetine [PROzac] 20 mg PO BID 02/01/15 11/27/16 History Lisinopril/Hydrochlorothiazide 1 each PO QAM 06/06/15 11/27/16 History [Lisinopril-Hctz 20-12.5 mg Tab] Gabapentin Cap/Tab [Neurontin 100 mg PO QAM 04/10/16 11/27/16 History Cap/Tab] HYDROcodone/ACETAMIN 10-325 [Laurel 1 tablet PO TID 05/11/16 11/27/16 History 10-325] Warfarin [Coumadin] 10 mg PO BID 11/27/16 11/27/16 History predniSONE TAB [PredniSONE] 20 mg PO QAM 11/27/16 11/27/16 History Allergies Allergy/AdvReac Type Severity Reaction Status Date / Time fentanyl [From Duragesic] Allergy Severe RASH, Verified 04/09/16 13:08 SWELLING OF FACE AND EYES Medical,Surgical,& Family Hx - Medical History Cardio: History of: Hypertension Psychological: History of: Anxiety Disorders, Depression Neurology: History of: Migraine (OCCASIONAL) No history of: Seizures HEENT: History of: 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), Dental Problems (missing teeth) Endocrine: History of: Diabetes Mellitus (NIDDM) (when on steroids), Dyslipidemia Respiratory: History of: Asthma, Bronchitis, COPD, Obstructive Sleep Apnea (PT HAS CPAP), Pulmonary Embolism (per patient, diagnosed with PE about one month ago at [facility]), Pneumonia, Respiratory Problems (pulmonary fibrosis) Gastrointestinal: History of: GI Problems (VENTRAL HERNIA) Musculoskeletal: History of: Back/Neck Problems - Surgical History Abdominal Surgeries: Surgical HX of: Appendectomy, Cholecystectomy, EGD, Hernia Repair (Ventral hernia with mesh) Reproductive Surgeries: Surgical HX of;: Section (X3), Tubal Ligation - Family History Family History: Reports;: Family Cancer, Family Heart Disease, Family Hypertension, Family Psychiatric Problems, Family Stroke Denies;: Family Anesthesia Reaction, Family Diabetes - Social History Smoking Status: Former smoker Type of Drug Use: None Exam - Constitutional Vitals: Period Temp Pulse Resp BP Sys/Ahuja Pulse Ox Last 24 Hr 96.0 F-97.6 F 57-112 18-20 121-156/63-92 90-99 Results - Labs CBC & BMP: 11/30/16 08:06 11/30/16 08:06
--- NOTE | 2016-11-30 11:25 | Pulmonology Progress Note ---
Pulmonary - PN: Subj Interval history: This is a 51-year-old white female whom I saw in pulmonary consultation on 2016. She is a patient of Dr. Tj Bills who is followed her for pulmonary fibrosis. Note that the patient does not have a bilateral symmetrical hilar adenopathy and right paratracheal lymph node characteristic of sarcoidosis and note that the only diagnosis of sarcoidosis we have is a CT scan of the chest diagnosis which of course is not definitive. In this case I suspect that she does not have sarcoidosis. She has sarcoidosis Dr. Tj Bills would have told her. My impressions were. 1. Acute bronchitis. Bacterial. 2. Pulmonary fibrosis. 2.1. History of COPD and asthma. 3. Solid dysphasia. Suspect esophageal stricture 4. Severe gastroesophageal reflux with nocturnal microaspiration 5. Blind left eye 6. High blood pressure with recent blood pressure problems 7. Xdq-tguhhty-[id number] diabetes mellitus exacerbated by steroids 8. See past history. 9. Recent acute pulmonary emboli. On anticoagulation. 11/29/2016. This patient chest sounds much better today she has less congestion WHEEZING. She has solid dysphasia and she has gastroesophageal reflux. I have reviewed her chest x-ray and CT scan. She does not have the characteristic pattern of aspirator's. I discussed this with her today. Today's biggest problem is an incessant cough. I have started the patient on Tessalon Perles 200 mg p.o. 3 times daily INR is 1.0. Previous labs been reviewed. There are no positive cultures. Doppler venograms are negative. 11/30/2016. This patient has become wheeze free. Large airway congestion has resolved. She says she is still short of breath. She has idiopathic pulmonary fibrosis and involves all 5 lobes of her lung. Electrolytes are normal. Creatinine is 0.9 with a BUN of 25. White count was 12,400. H&H 11.7/36.9 and platelets are 293,000. INR is 1.8. This is being followed daily. This is a longtime patient of Dr. Tj Bills who will take over tomorrow. Physical exam. Vital signs. See below Psychiatric. Oriented 3. Face. Symmetrical. No edema of the lips or tongue. Neck. Symmetrical. No meningismus. Lymphatics. No submandibular cervical supraclavicular or epitrochlear adenopathy. New Chest. Slight coarseness of large airway sounds have resolved. No wheezes. Heart. No gallop Abdomen. Nontender. Bowel sounds are positive Extremities. Nothing to suggest deep venous thrombophlebitis. Neurologic. Cranial nerves are intact long track motor functions intact. Plan. 11/28/2016 1. Steroids 2. Antibiotics 3. Inhalation therapy with DuoNeb's 4 times daily and as needed 4. Sputum for Gram stain culture and sensitivity 5. Anti-reflux regimen 6. Consider E scope with dilatation. 7. Doppler venograms of lower extremity 11/29/2016. 1. See today's note above. 2. Tessalon Perles 3. Continue present regimen 4. Dr. Tj Bills will take over on 12/01/2016 11/30/2016. 1. See today's note above. 2. Pulmonary fibrosis. Involve [address] Tj Bills will take over on 12/01/2016. Exam (Progress Note) - Constitutional Vitals: Period Temp Pulse Resp BP Sys/Ahuja Pulse Ox Last 24 Hr 97.4 F-97.6 F 57-95 18-20 121-156/63-92 90-99 Results - Labs CBC & BMP: 11/30/16 08:06 11/30/16 08:06
[2016-11-30] MEDS: ACETAMINOPHEN 325 MG TABLET PO PRN (14:08)
--- NOTE | 2016-11-30 15:19 | Fluoroscopy Report ---
Barium swallow November 30, 2016 1454 hours Indication: Pain on swallowing Comparison: Not available Technique: Barium contrast was administered orally under fluoroscopic observation. 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 The lungs demonstrate no focal consolidation, pleural effusion, or pneumothorax. The visualized osseous and soft tissue structures demonstrate no acute abnormality. Ingestion of barium contrast under fluoroscopic observation demonstrates primary peristaltic waves of the esophagus clearing the barium contrast into the stomach. Mucosal pattern and morphology of the esophagus is grossly unremarkable. No masses, strictures or filling defects are identified. No gastroesophageal reflux was elicited during the time of examination. IMPRESSION: Normal barium swallow series. PROCEDURE INTERPRETED AT [facility] DEPARTMENT OF RADIOLOGY Final Report Signed by: Javi Suarez
[2016-11-30] MEDS: KETOROLAC 15 MG/1 ML VIAL IV PRN (15:51)
[2016-11-30] MEDS: LANSOPRAZOLE ODT 30 MG TABLET PO SCH ×2 (15:51→21:24)
[2016-11-30] MEDS: LEVOFLOXACIN INJ 750 MG in PREMIX 1 EACH IV SCH (18:02)
[2016-12-01] MEDS: methylPREDNISolone SOD SUC 125 MG/2 ML VIAL IV SCH ×4 (00:16→17:34)
[2016-12-01] MEDS: ALBUTEROL/IPRATROPIUM 3 ML NEB RESP TX SCH ×4 (07:10→19:57)
[2016-12-01 07:29] LABS: Basophils % 0.1 % (0.0-0.8); Hematocrit 33.9 VOL% (35.7-47.0); Hemoglobin 11.7 GM/DL (12.0-16.0); Immature Granulocytes % 0.8 %; Lymphocytes # 1.4 10*3/uL (1.4-4.0); Lymphocytes % 11.3 % (21.3-54.2); Mean Corpuscular HGB Conc 34.5 GM/DL (32-36); Mean Corpuscular Hemoglobin 29 PG (27-34); Mean Corpuscular Volume 84.5 FL (87-102); Mean Platelet Volume 11.4 FL (9.6-12.0); Monocytes # 0.2 10*3/uL (0.11-0.8); Monocytes % 1.7 % (1.7-12.7); Neutrophils # 10.9 10*3/uL (1.4-7.4); Neutrophils % 86.1 % (38.7-73.9); Platelet Count 300 T/CUMM (130-400); Red Blood Count 4.01 MC/CUMM (3.8-5.5); Red Cell Distribution Width 16.1 % (9.3-17.3); White Blood Count 12.6 T/CUMM (4-12)
[2016-12-01 07:57] LABS: Alanine Aminotransferase 34 U/L (13-56); Albumin 2.9 G/DL (3.4-5.0); Alkaline Phosphatase 80 U/L (45-117); Aspartate Amino Transferase 11 U/L (0-37); Bilirubin,Total < 0.39 MG/DL (0.2-1.0); Blood Urea Nitrogen 28 MG/DL (7-18); Calcium 8.6 MG/DL (8.5-10.1); Glucose 148 MG/DL (74-106); Magnesium 2.6 MG/DL (1.8-2.4); Osmolality,Calculated 287.4 MOS/KG (273-304); Phosphorous 3.5 MG/DL (2.5-4.9); Potassium 3.4 MMOL/L (3.5-5.1); Sodium 140 MMOL/L (136-145); Total Protein 6.4 G/DL (6.4-8.3)
--- NOTE | 2016-12-01 08:13 | XRay Report ---
Exam: XR chest 1V portable Date: 12/01/2016 4:00 AM Indication: COPD Comparison: 11/28/2016 Technical: AP Findings: Mild cardiomegaly present. Multiple old left rib fractures are present bilaterally. Patchy infiltrates are present lung altamirano bilaterally with low volume effusion without pneumothorax. Bony structures are intact . No pneumothorax. Mediastinum is intact Impression: 1. Cardiomegaly 2. Increasing interstitial infiltrates bilaterally left greater than right with low volume effusions 2. Old bilateral rib fractures PROCEDURE INTERPRETED AT [facility] DEPARTMENT OF RADIOLOGY Final Report Signed by: Dr. Jason Barajas
--- NOTE | 2016-12-01 08:57 | Hospitalist Progress Note ---
Assessment and Plan (1) Acute bronchitis with chronic obstructive pulmonary disease (COPD) Status: Acute Assessment and plan: We will continue antibiotic coverage and intravenous corticosteroids as previously ordered. Continue inhaled bronchodilator treatments as previously ordered and recheck chest x-ray in a.m. Current Visit: No (2) Hyperglycemia Status: Acute Assessment and plan: Blood glucose levels remain moderately elevated. This is largely attributed to the current corticosteroid use. We will continue Accu-Cheks with sliding scale coverage as previously ordered. Current Visit: No (3) Hx pulmonary embolism Status: Acute Assessment and plan: PT and INR noted at 1.8/20.1 today. We will continue Coumadin 10 mg p.o. twice daily and recheck PT/INR in a.m. /-INR not available at this time. We will obtain stat INR. Current Visit: Yes Hospitalist: Subjective Interval history: Patient seen and examined; chart reviewed. No significant overnight events reported per staff. Gastroenterology evaluation on yesterday. We appreciate the assistance and input. Awaiting medical records from [facility] for further direction. Exam - Constitutional Vitals: Period Temp Pulse Resp BP Sys/Ahuja Pulse Ox Last 24 Hr 95.6 F-98.0 F 60-95 18-20 129-160/64-89 93-100 General appearance: normal weight, no acute distress - Head Head exam: Present: normal inspection, normocephalic, atraumatic - Eye Eye exam: Present: EOMI. Absent: conjunctival injection Pupils: Present: LIVAN, normal accommodation - ENT ENT exam: Present: normal exam, normal external ear exam, normal oropharynx - Neck Neck exam: Present: normal inspection. Absent: lymphadenopathy, meningismus, tenderness, thyromegaly - Respiratory Respiratory exam: Present: wheezes (Scattered wheezes) - Cardiovascular Cardiovascular exam: Present: regular rate and rhythm. Absent: carotid bruit, diastolic murmur, gallop, JVD, rubs - GI/Abdominal GI/Abdominal exam: Present: normal bowel sounds, soft. Absent: firm, tenderness , rebound - Extremities Exam Extremities exam: Present: normal inspection, normal capillary refill, full ROM. Absent: edema - Back Exam Back exam: Present: normal inspection - Neurological Exam Neurological exam: Present: alert, oriented X3, CN II-XII intact - Psychiatric Psychiatric exam: Present: normal affect, normal mood - Skin Skin exam: Present: normal color, warm, dry Results - Labs CBC & BMP: 12/01/16 06:08 12/01/16 06:08 Lab Results: I have reviewed the past 24 hour labs
[2016-12-01 09:06] LABS: PT Patient Result 87.7 SECS
[2016-12-01 09:08] LABS: INR 7.3
--- NOTE | 2016-12-01 09:28 | Gastrointestinal Progress Note ---
Assessment and Plan (1) Dysphagia Status: Acute Assessment and plan: 12/01-several year history of dysphagia now worsened over the last several months to solids, pills, and liquids. History of GERD as well not well controlled with PPI. No prior endoscopy in the past. Currently on Coumadin with recent history of PE. Barium swallow results noted. Continue to monitor at this time with elevated INR 7.3 noted. Can discuss proceeding with EGD once records are available to review regarding holding her Coumadin in lieu of recent PE. Plan an addendum to followed by Dr. Ribeiro. Current Visit: Yes Gastroenterology - PN: Subj Interval history: CC: Dysphagia Patient is seen, awake and alert lying in bed. States she had an uneventful night. She was admitted on 11/27 for shortness of breath with history of pulmonary fibrosis and found to have acute bronchitis. Since admission, she has complained of several year history of dysphagia that is worsened over the last several months. She does complain with difficulty swallowing pills, solids , and at times liquids. She has a history of GERD with coughing after meals reported as well. She states at times she does have to regurgitate her food and at other times has early satiety with eating. She does not report a history of weight loss. She does not recall a history of endoscopy in the past. She is noted at this time to be on Coumadin with a fairly recent history of PE which was diagnosed at an outside hospital. Patient did have a barium swallow done on yesterday with no abnormal findings noted. She continues on her Coumadin at this time however she is noted to have an elevated INR this morning at 7.3. Hospital medicine to address this. Abdomen is soft, nontender. ROS: Denies shortness of breath or chest pain Exam (Progress Note) - Constitutional Vitals: Period Temp Pulse Resp BP Sys/Ahuja Pulse Ox Last 24 Hr 95.6 F-98.0 F 60-95 18-20 129-160/64-89 93-100 General appearance: normal weight, no acute distress - Head Head exam: Present: normal inspection - Eye Eye exam: Present: other (Lids and conjunctive are unremarkable). Absent: scleral icterus - ENT ENT exam: Present: normal exam, normal oropharynx - Neck Neck exam: Present: normal inspection - Respiratory Respiratory exam: Present: clear to auscultation bilaterally. Absent: rales, rhonchi, wheezes - Cardiovascular Cardiovascular exam: Present: regular rate and rhythm. Absent: diastolic murmur , JVD, systolic murmur - GI/Abdominal GI/Abdominal exam: Present: normal bowel sounds, soft. Absent: ascites, distended, mass, organomegaly, tenderness - Extremities Exam Extremities exam: Present: normal inspection, full ROM - Back Exam Back exam: Present: normal inspection - Neurological Exam Neurological exam: Present: alert, oriented X3 - Psychiatric Psychiatric exam: Present: normal affect, normal mood - Skin Skin exam: Present: normal color, warm, dry Results - Labs CBC & BMP: 12/01/16 06:08 12/01/16 06:08 Lab Results: I have reviewed the past 24 hour labs
--- NOTE | 2016-12-01 09:28 | Physician Query Form ---
CLICK EDIT DOCUMENT TO SELECT QUERY ANSWER --> OK --> SIGN Candace Hidalgo RN Clinical Business Objects Analyst W) [phone] (f) [phone] [email or web address] PROVIDERS: Make your selection(s) from the choices in EACH section by typing an "x" and enter comments in the comment section. Please use your independent medical judgment in providing your response. This request does not imply that any particular answer is desired or expected. CLINICAL INDICATORS: (Providers should not edit this section) Based on documentation of "She has pulmonary fibrosis and uses 2L of oxygen. She states that over the past week, she had to use 3L of oxygen". Based on the above, could you clarify the appropriate diagnosis, if significant , that supports the above abnormalities and additional evaluation, monitoring, and/or treatment rendered: ( x) Pt. has chronic respiratory failure ( ) Pt. does not have chronic respiratory failure ( ) Other, please specify: ( X) Clinically unable to determine COMMENTS: PLEASE ALSO DOCUMENT RESPONSE IN PROGRESS NOTES AND/OR DISCHARGE SUMMARY Use of terms such as suspected, likely, or probable (associated with a specific diagnosis that is being evaluated, monitored, or treated as if it exists) are acceptable and can be restated in the discharge summary if not ruled out. MTDD
[2016-12-01] MEDS: FLUoxetine 20 MG CAPSULE PO SCH ×2 (10:08→20:59)
[2016-12-01] MEDS: GABAPENTIN 100 MG CAPSULE PO SCH (10:08)
[2016-12-01] MEDS: ALPRAZolam 0.5 MG TABLET PO SCH ×2 (10:09→20:59)
[2016-12-01] MEDS: LANSOPRAZOLE ODT 30 MG TABLET PO SCH ×2 (10:09→20:59)
[2016-12-01] MEDS: LISINOPRIL/HCTZ 20-12.5 MG TABLET PO SCH (10:21)
[2016-12-01] MEDS: BENZONATATE 100 MG CAPSULE PO SCH ×3 (10:21→20:59)
[2016-12-01] MEDS: WARFARIN 10 MG TABLET PO SCH (10:23)
[2016-12-01] MEDS: BUDESONIDE/FORMOTEROL 160-4.5 INHALER 6 GM INH SCH ×2 (10:23→21:00)
--- NOTE | 2016-12-01 11:57 | Pulmonology Progress Note ---
Pulmonary - PN: Subj Interval history: Patient is a 51-year-old white lady that is a former smoker and has not had a component of COPD along with interstitial lung disease. 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 She has been on prednisone and doing a little better. She came in over the weekend with a little more chest congestion and coughing. She apparently is having some trouble swallowing also. She is not having any definite fever. She feels a little better today. She has been evaluated by GI for possible EGD. Exam (Progress Note) - Constitutional Vitals: Period Temp Pulse Resp BP Sys/Ahuja Pulse Ox Last 24 Hr 95.6 F-98.0 F 60-95 18-20 129-160/64-89 93-100 General appearance: no acute distress (She is comfortable in bed), over weight - Head Head exam: Present: normal inspection, normocephalic - Eye Eye exam: Present: EOMI. Absent: scleral icterus Pupils: Present: LIVAN - ENT ENT exam: Present: normal exam - Neck Neck exam: Present: normal inspection. Absent: lymphadenopathy, thyromegaly - Respiratory Respiratory exam: Present: rales, other (She has good breath sounds with just some minimal expiratory crackles). Absent: wheezes - Cardiovascular Cardiovascular exam: Present: regular rate and rhythm. Absent: gallop, systolic murmur - GI/Abdominal GI/Abdominal exam: Present: normal bowel sounds, soft. Absent: organomegaly, tenderness - Extremities Exam Extremities exam: Absent: calf tenderness, edema - Neurological Exam Neurological exam: Present: alert, oriented X3, CN II-XII intact - Psychiatric Psychiatric exam: Present: normal affect, normal mood - Skin Skin exam: Present: warm, dry Results - Labs CBC & BMP: 12/01/16 06:08 12/01/16 06:08 - Diagnostic Findings Procedure: Chest x-ray: image reviewed by me, report reviewed by me (Chest x- ray shows interstitial infiltrates but is stable.) Assessment and Plan (1) COPD (chronic obstructive pulmonary disease) with acute bronchitis Status: Chronic Assessment and plan: Patient is a former smoker and does have a component of COPD. She will wheeze at times. She came in coughing and wheezing some home and had bronchitis. She is doing better now. Current Visit: No (2) Hypertension Status: Acute Assessment and plan: Her blood pressure is being monitored and is stable now. Current Visit: No (3) Interstitial lung disease Status: Chronic Assessment and plan: The patient's open lung biopsy was consistent with Desquamative interstitial pneumonitis. She has responded to prednisone at times. Current Visit: No (4) Dysphagia Status: Acute Assessment and plan: She is being evaluated by GI. Her INR is very high at present. Current Visit: Yes
[2016-12-01] MEDS ORDERED: PHYTONADIONE 5 MG TABLET PO ONE (12:14)
[2016-12-01] MEDS: KETOROLAC 15 MG/1 ML VIAL IV PRN (13:31)
[2016-12-01] MEDS: ACETAMINOPHEN 325 MG TABLET PO PRN (14:04)
[2016-12-01] MEDS: BUTALBITAL/ACETAMIN/CAFFEINE 50-325-40 MG TABLET PO PRN ×2 (14:48→21:07)
--- NOTE | 2016-12-01 15:14 | CT Report ---
Exam: CT head without intravenous contrast Clinical History: 51-year-old female with recurring headache Technique: Axial computed tomography images of the head/brain without intravenous contrast Comparison: May 13, 2016 Findings: Brain: Mild microangiopathic small vessel ischemic changes. Suarez-white matter distinction maintained. No mass effect. No intra or extra-axial hemorrhage. Ventricles: Unremarkable. No ventriculomegaly. Bones/joints: Calvarium is intact Orbits: Left globe prosthesis is noted Soft tissues: Unremarkable Sinuses: Retention cyst within the maxillary sinuses Mastoid air cells: Unremarkable visualized. Impression: 1. No acute intracranial abnormality. 2. Mild microangiopathic small vessel ischemic changes 3. Maxillary sinus retention cysts PROCEDURE INTERPRETED AT [facility] DEPARTMENT OF RADIOLOGY Final Report Signed by: Javi Suarez
--- NOTE | 2016-12-01 16:29 | Event Note ---
Headaches has resolved completely. Consult has been cancelled by PCP. Call PRN
[2016-12-01] MEDS: LEVOFLOXACIN INJ 750 MG in PREMIX 1 EACH IV SCH (17:36)
[2016-12-02] MEDS: methylPREDNISolone SOD SUC 125 MG/2 ML VIAL IV SCH ×2 (00:05→06:22)
[2016-12-02] MEDS: BUTALBITAL/ACETAMIN/CAFFEINE 50-325-40 MG TABLET PO PRN (04:57)
[2016-12-02 06:10] LABS: INR 2.1
[2016-12-02 06:17] LABS: INR 2.1
[2016-12-02 06:18] LABS: PT Patient Result 23.4 SECS
[2016-12-02] MEDS: ALBUTEROL/IPRATROPIUM 3 ML NEB RESP TX SCH ×4 (07:39→19:14)
--- NOTE | 2016-12-02 08:32 | Pulmonology Progress Note ---
Pulmonary - PN: Subj Interval history: Patient is a 51-year-old white lady that is a former smoker and has not had a component of COPD along with interstitial lung disease. 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 She has been on prednisone and doing a little better. She came in over the weekend with a little more chest congestion and coughing. She apparently is having some trouble swallowing also. She is not having any definite fever. She says she had a good night and her breathing is much better today. She did not have an EGD because her INR was out. He looks better today. Her coughing and wheezing are much better. Exam (Progress Note) - Constitutional Vitals: Period Temp Pulse Resp BP Sys/Ahuja Pulse Ox Last 24 Hr 10 F-97.9 F 62-90 18-20 133-158/62-90 92-99 Exam: General appearance: no acute distress (She is sitting up and looks much more comfortable today. ), over weight - Head Head exam: Present: normal inspection, normocephalic - Eye Eye exam: Present: EOMI. Absent: scleral icterus Pupils: Present: LIVAN - ENT ENT exam: Present: normal exam - Neck Neck exam: Present: normal inspection. Absent: lymphadenopathy, thyromegaly - Respiratory Respiratory exam: Present: She has good breath sounds bilaterally is moving air well. She does not have any wheezing but has just some slight crackles in the bases. - Cardiovascular Cardiovascular exam: Present: regular rate and rhythm. Absent: gallop, systolic murmur - GI/Abdominal GI/Abdominal exam: Present: normal bowel sounds, soft. Absent: organomegaly, tenderness - Extremities Exam Extremities exam: Absent: calf tenderness, edema - Neurological Exam Neurological exam: Present: alert, oriented X3, CN II-XII intact - Psychiatric Psychiatric exam: Present: normal affect, normal mood - Skin Skin exam: Present: warm, dry Results - Labs CBC & BMP: 12/01/16 06:08 12/01/16 06:08 Assessment and Plan (1) COPD (chronic obstructive pulmonary disease) with acute bronchitis Status: Chronic Assessment and plan: Patient is a former smoker and does have a component of COPD. She will wheeze at times. She came in coughing and wheezing some home and had bronchitis. Her symptoms are much better and her breathing is much better. Current Visit: No (2) Hypertension Status: Acute Assessment and plan: Her blood pressure is being monitored and is stable now. Current Visit: No (3) Interstitial lung disease Status: Chronic Assessment and plan: The patient's open lung biopsy was consistent with Desquamative interstitial pneumonitis. She has responded to prednisone at times. We will change her back over to prednisone today. Current Visit: No (4) Dysphagia Status: Acute Assessment and plan: She is being evaluated by GI. Her INR is back to 2.1. For now she is reasonably stable. Current Visit: Yes
--- NOTE | 2016-12-02 09:42 | Hospitalist Progress Note ---
Assessment and Plan (1) Acute bronchitis with chronic obstructive pulmonary disease (COPD) Status: Acute Assessment and plan: We will continue antibiotic coverage and intravenous corticosteroids as previously ordered. Continue inhaled bronchodilator treatments as previously ordered and recheck chest x-ray in a.m. Current Visit: No (2) Hyperglycemia Status: Acute Assessment and plan: Blood glucose levels remain moderately elevated. This is largely attributed to the current corticosteroid use. We will continue Accu-Cheks with sliding scale coverage as previously ordered. Current Visit: No (3) Hx pulmonary embolism Status: Acute Assessment and plan: PT and INR noted at 1.8/20.1 today. We will continue Coumadin 10 mg p.o. twice daily and recheck PT/INR in a.m. 9/5-INR not available at this time. We will obtain stat INR. 9/6-PT/INR noted at 2.1 and 23.4. We will consult pharmacy to manage Coumadin. We will recheck INR in a.m. Current Visit: Yes (4) Positive culture findings in sputum Status: Acute Assessment and plan: Sputum culture positive for yeast. We will start fluconazole 200 mg IV daily. Current Visit: Yes Hospitalist: Subjective Interval history: Patient seen and examined; chart reviewed. No significant overnight events. Awaiting medical records from [facility] in order to proceed with EGD. Exam - Constitutional Vitals: Period Temp Pulse Resp BP Sys/Ahuja Pulse Ox Last 24 Hr 10 F-97.9 F 62-90 18-20 133-158/62-90 92-99 General appearance: normal weight, no acute distress - Head Head exam: Present: normal inspection, normocephalic, atraumatic - Eye Eye exam: Present: EOMI. Absent: conjunctival injection Pupils: Present: LIVAN, normal accommodation - ENT ENT exam: Present: normal exam, normal external ear exam, normal oropharynx - Neck Neck exam: Present: normal inspection. Absent: lymphadenopathy, meningismus, tenderness, thyromegaly - Respiratory Respiratory exam: Present: clear to auscultation bilaterally, other (Slight crackles in the right base) - Cardiovascular Cardiovascular exam: Present: regular rate and rhythm. Absent: carotid bruit, diastolic murmur, gallop, JVD, rubs, systolic murmur - GI/Abdominal GI/Abdominal exam: Present: normal bowel sounds, soft. Absent: tenderness, rebound - Extremities Exam Extremities exam: Present: normal inspection, normal capillary refill, full ROM. Absent: edema - Back Exam Back exam: Absent: normal inspection - Neurological Exam Neurological exam: Present: alert, oriented X3, CN II-XII intact - Psychiatric Psychiatric exam: Present: normal affect, normal mood - Skin Skin exam: Present: normal color, warm, dry Results - Labs CBC & BMP: 12/01/16 06:08 12/01/16 06:08 Lab Results: I have reviewed the past 24 hour labs
--- NOTE | 2016-12-02 09:44 | Gastrointestinal Progress Note ---
Assessment and Plan (1) Dysphagia Status: Acute Assessment and plan: 12/02-no changes at this time. INR down to 2.1. We will tentatively schedule EGD for tomorrow if INR continues to fall. Plan an addendum to follow Dr. Ribeiro. 12/01-several year history of dysphagia now worsened over the last several months to solids, pills, and liquids. History of GERD as well not well controlled with PPI. No prior endoscopy in the past. Currently on Coumadin with recent history of PE. Barium swallow results noted. Continue to monitor at this time with elevated INR 7.3 noted. Can discuss proceeding with EGD once records are available to review regarding holding her Coumadin in lieu of recent PE. Plan an addendum to followed by Dr. Rbieiro. Current Visit: Yes Gastroenterology - PN: Subj Interval history: CC: Dysphagia Patient is seen, awake and alert. States that she rested well last night. She denies any abdominal pain, nausea or vomiting. She states that her shortness of breath is improved and is stable at this time. Her Coumadin is currently being held for elevated INR however this is now down today at 2.1. She is having continued dysphagia but states that this time she is doing the best she can with her eating. Abdomen is soft, nontender. Discussed with patient that if her INR continues to come down we can consider proceeding with EGD on tomorrow. We will tentatively schedule this and reassess in the morning. ROS: Denies shortness of breath or chest pain Exam (Progress Note) - Constitutional Vitals: Period Temp Pulse Resp BP Sys/Ahuja Pulse Ox Last 24 Hr 10 F-97.9 F 62-90 18-20 133-158/62-90 92-99 - Other Additional findings: General appearance: normal weight, no acute distress - Head Head exam: Present: normal inspection - Eye Eye exam: Present: other (Lids and conjunctive are unremarkable). Absent: scleral icterus - ENT ENT exam: Present: normal exam, normal oropharynx - Neck Neck exam: Present: normal inspection - Respiratory Respiratory exam: Present: clear to auscultation bilaterally. Absent: rales, rhonchi, wheezes - Cardiovascular Cardiovascular exam: Present: regular rate and rhythm. Absent: diastolic murmur , JVD, systolic murmur - GI/Abdominal GI/Abdominal exam: Present: normal bowel sounds, soft. Absent: ascites, distended, mass, organomegaly, tenderness - Extremities Exam Extremities exam: Present: normal inspection, full ROM - Back Exam Back exam: Present: normal inspection - Neurological Exam Neurological exam: Present: alert, oriented X3 - Psychiatric Psychiatric exam: Present: normal affect, normal mood - Skin Skin exam: Present: normal color, warm, dry Results - Labs CBC & BMP: 12/01/16 06:08 12/01/16 06:08 Lab Results: I have reviewed the past 24 hour labs
[2016-12-02] MEDS: GABAPENTIN 100 MG CAPSULE PO SCH (09:47)
[2016-12-02] MEDS: ALPRAZolam 0.5 MG TABLET PO SCH ×2 (09:47→20:30)
[2016-12-02] MEDS: FLUoxetine 20 MG CAPSULE PO SCH ×2 (09:47→20:30)
[2016-12-02] MEDS: LISINOPRIL/HCTZ 20-12.5 MG TABLET PO SCH (09:47)
[2016-12-02] MEDS: BENZONATATE 100 MG CAPSULE PO SCH ×3 (09:47→20:30)
[2016-12-02] MEDS: LANSOPRAZOLE ODT 30 MG TABLET PO SCH ×2 (09:47→20:30)
[2016-12-02] MEDS: BUDESONIDE/FORMOTEROL 160-4.5 INHALER 6 GM INH SCH ×2 (09:48→22:28)
[2016-12-02] MEDS: predniSONE 20 MG TABLET PO SCH (09:49)
[2016-12-02] MEDS ORDERED: FLUCONAZOLE INJ 200 MG in PREMIX 1 EACH IV SCH (10:00)
[2016-12-02] MEDS: LEVOFLOXACIN 250 MG TABLET PO SCH (13:13)
[2016-12-02] MEDS ORDERED: WARFARIN 5 MG TABLET PO SCH (18:00)
[2016-12-02] MEDS: KETOROLAC 15 MG/1 ML VIAL IV PRN (20:33)
[2016-12-03] MEDS: ALBUTEROL/IPRATROPIUM 3 ML NEB RESP TX SCH ×4 (07:28→19:15)
[2016-12-03 08:07] LABS: Basophils % 0.2 % (0.0-0.8); Eosinophils % 0.1 % (0.00-10.9); Hematocrit 34.4 VOL% (35.7-47.0); Immature Granulocytes % 1.1 %; Immature Granulocytes Absolute 0.12 #; Lymphocytes # 3.6 10*3/uL (1.4-4.0); Lymphocytes % 33.3 % (21.3-54.2); Mean Corpuscular Hemoglobin 27 PG (27-34); Mean Corpuscular Volume 84.3 FL (87-102); Mean Platelet Volume 10.6 FL (9.6-12.0); Monocytes # 0.7 10*3/uL (0.11-0.8); Monocytes % 6.4 % (1.7-12.7); Neutrophils # 6.4 10*3/uL (1.4-7.4); Neutrophils % 58.9 % (38.7-73.9); Platelet Count 281 T/CUMM (130-400); Red Blood Count 4.08 MC/CUMM (3.8-5.5); Red Cell Distribution Width 15.8 % (9.3-17.3); White Blood Count 10.8 T/CUMM (4-12)
[2016-12-03 08:23] LABS: INR 1.8; PT Patient Result 19.3 SECS
[2016-12-03 08:43] LABS: Albumin 2.9 G/DL (3.4-5.0); Bilirubin,Total 0.6 MG/DL (0.2-1.0); Calcium 8.5 MG/DL (8.5-10.1); Magnesium 2.7 MG/DL (1.8-2.4); Osmolality,Calculated 282.5 MOS/KG (273-304); Phosphorous 3.3 MG/DL (2.5-4.9); Potassium 3.6 MMOL/L (3.5-5.1); Total Protein 6.1 G/DL (6.4-8.3)
--- NOTE | 2016-12-03 08:51 | Pulmonology Progress Note ---
Pulmonary - PN: Subj Interval history: Patient is a 51-year-old white lady that is a former smoker and has not had a component of COPD along with interstitial lung disease. 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 She has been on prednisone and doing a little better. She came in over the weekend with a little more chest congestion and coughing. She apparently is having some trouble swallowing also. She is not having any definite fever. She says she still breathing better and feels okay. Her INR is down to 1.8. She is scheduled for an EGD today. Overall her respiratory status is stable. Exam (Progress Note) - Constitutional Vitals: Period Temp Pulse Resp BP Sys/Ahuja Pulse Ox Last 24 Hr 97.3 F-98.0 F 58-80 16-20 110-151/64-88 94-99 Exam: General appearance: no acute distress (She is sitting up and looks much more comfortable today. She is not having any distress now.), over weight - Head Head exam: Present: normal inspection, normocephalic - Eye Eye exam: Present: EOMI. Absent: scleral icterus Pupils: Present: LIVAN - ENT ENT exam: Present: normal exam - Neck Neck exam: Present: normal inspection. Absent: lymphadenopathy, thyromegaly - Respiratory Respiratory exam: Present: She has good breath sounds bilaterally is moving air well. She has has just minimal crackles now. - Cardiovascular Cardiovascular exam: Present: regular rate and rhythm. Absent: gallop, systolic murmur - GI/Abdominal GI/Abdominal exam: Present: normal bowel sounds, soft. Absent: organomegaly, tenderness - Extremities Exam Extremities exam: Absent: calf tenderness, edema - Neurological Exam Neurological exam: Present: alert, oriented X3, CN II-XII intact - Psychiatric Psychiatric exam: Present: normal affect, normal mood - Skin Skin exam: Present: warm, dry Results - Labs CBC & BMP: 12/03/16 07:13 12/03/16 07:13 Assessment and Plan (1) COPD (chronic obstructive pulmonary disease) with acute bronchitis Status: Chronic Assessment and plan: Patient is a former smoker and does have a component of COPD. She will wheeze at times. She came in coughing and wheezing some home and had bronchitis. Her symptoms are much better and her breathing is much better. Overall her respiratory status is stable. Current Visit: No (2) Hypertension Status: Acute Assessment and plan: Her blood pressure is being monitored and is stable now. Current Visit: No (3) Interstitial lung disease Status: Chronic Assessment and plan: The patient's open lung biopsy was consistent with Desquamative interstitial pneumonitis. She has responded to prednisone at times. We will change her back over to prednisone today. She will need outpatient follow-up. Current Visit: No (4) Dysphagia Status: Acute Assessment and plan: She is being evaluated by GI. Her INR is 1.8 today. She may have her EGD today. Current Visit: Yes
--- NOTE | 2016-12-03 09:03 | Gastrointestinal Progress Note ---
Assessment and Plan (1) Dysphagia Status: Acute Assessment and plan: 12/03-continued dysphagia. INR 1.8. Resume diet today and hold n.p.o. tonight. If INR 1.6 her last proceed with EGD tomorrow. Plan an addendum to follow Dr. Ribeiro. 12/02-no changes at this time. INR down to 2.1. We will tentatively schedule EGD for tomorrow if INR continues to fall. Plan an addendum to follow Dr. Ribeiro. 12/01-several year history of dysphagia now worsened over the last several months to solids, pills, and liquids. History of GERD as well not well controlled with PPI. No prior endoscopy in the past. Currently on Coumadin with recent history of PE. Barium swallow results noted. Continue to monitor at this time with elevated INR 7.3 noted. Can discuss proceeding with EGD once records are available to review regarding holding her Coumadin in lieu of recent PE. Plan an addendum to followed by Dr. Ribeiro. Current Visit: Yes Gastroenterology - PN: Subj Interval history: CC: Dysphagia Patient is seen, awake and alert lying in bed. She was held n.p.o. overnight for tentative EGD today for INR was within the required range of 1.6 her last however 1.8 today. Discussed with patient that we will allow her to eat today and we will hold her n.p.o. again tonight and if her INR is down tomorrow morning we will proceed with EGD at that time. No changes in her dysphagia at present time. Continue to monitor. Abdomen is soft, nontender. ROS: Denies shortness of breath or chest pain Exam (Progress Note) - Constitutional Vitals: Period Temp Pulse Resp BP Sys/Ahuja Pulse Ox Last 24 Hr 97.3 F-98.0 F 58-80 16-20 110-151/64-88 94-99 - Other Additional findings: General appearance: normal weight, no acute distress - Head Head exam: Present: normal inspection - Eye Eye exam: Present: other (Lids and conjunctive are unremarkable). Absent: scleral icterus - ENT ENT exam: Present: normal exam, normal oropharynx - Neck Neck exam: Present: normal inspection - Respiratory Respiratory exam: Present: clear to auscultation bilaterally. Absent: rales, rhonchi, wheezes - Cardiovascular Cardiovascular exam: Present: regular rate and rhythm. Absent: diastolic murmur , JVD, systolic murmur - GI/Abdominal GI/Abdominal exam: Present: normal bowel sounds, soft. Absent: ascites, distended, mass, organomegaly, tenderness - Extremities Exam Extremities exam: Present: normal inspection, full ROM - Back Exam Back exam: Present: normal inspection - Neurological Exam Neurological exam: Present: alert, oriented X3 - Psychiatric Psychiatric exam: Present: normal affect, normal mood - Skin Skin exam: Present: normal color, warm, dry Results - Labs CBC & BMP: 12/03/16 07:13 12/03/16 07:13 Lab Results: I have reviewed the past 24 hour labs
[2016-12-03] MEDS: FLUoxetine 20 MG CAPSULE PO SCH ×2 (09:10→20:36)
[2016-12-03] MEDS: GABAPENTIN 100 MG CAPSULE PO SCH (09:10)
[2016-12-03] MEDS: BENZONATATE 100 MG CAPSULE PO SCH ×3 (09:10→20:36)
[2016-12-03] MEDS: predniSONE 20 MG TABLET PO SCH (09:10)
[2016-12-03] MEDS: ALPRAZolam 0.5 MG TABLET PO SCH ×2 (09:10→20:36)
[2016-12-03] MEDS: BUDESONIDE/FORMOTEROL 160-4.5 INHALER 6 GM INH SCH ×2 (09:10→20:37)
[2016-12-03] MEDS: LANSOPRAZOLE ODT 30 MG TABLET PO SCH ×2 (09:10→20:36)
[2016-12-03] MEDS: FLUCONAZOLE 200 MG TABLET PO SCH (09:10)
--- NOTE | 2016-12-03 09:21 | Physician Query Form ---
CLICK EDIT DOCUMENT TO SELECT QUERY ANSWER --> OK --> SIGN Candace Hidalgo RN Clinical Director Environmental W) [phone] (f) [phone] [email or web address]: Make your selection(s) from the choices in EACH section by typing an "x" and enter comments in the comment section. Please use your independent medical judgment in providing your response. This request does not imply that any particular answer is desired or expected. CLINICAL INDICATORS: (Providers should not edit this section) Based on documentation of "Sputum culture positive for yeast. We will start fluconazole 200 mg IV daily". Based on the above, could you clarify the appropriate diagnosis, if significant , that supports the above abnormalities and additional evaluation, monitoring, and/or treatment rendered: (x ) Pt. treated for julian of the mouth ( ) Pt. treated for julian of the lung ( ) Other, please specify: ( ) Clinically unable to determine COMMENTS: PLEASE ALSO DOCUMENT RESPONSE IN PROGRESS NOTES AND/OR DISCHARGE SUMMARY Use of terms such as suspected, likely, or probable (associated with a specific diagnosis that is being evaluated, monitored, or treated as if it exists) are acceptable and can be restated in the discharge summary if not ruled out. MTDD
--- NOTE | 2016-12-03 10:12 | Hospitalist Progress Note ---
Assessment and Plan (1) Acute bronchitis with chronic obstructive pulmonary disease (COPD) Status: Acute Assessment and plan: We will continue antibiotic coverage and intravenous corticosteroids as previously ordered. Continue inhaled bronchodilator treatments as previously ordered and recheck chest x-ray in a.m. Current Visit: No (2) Hyperglycemia Status: Acute Assessment and plan: Blood glucose levels remain moderately elevated. This is largely attributed to the current corticosteroid use. We will continue Accu-Cheks with sliding scale coverage as previously ordered. Current Visit: No (3) Hx pulmonary embolism Status: Acute Assessment and plan: PT and INR noted at 1.8/20.1 today. We will continue Coumadin 10 mg p.o. twice daily and recheck PT/INR in a.m. 9/5-INR not available at this time. We will obtain stat INR. 9/6-PT/INR noted at 2.1 and 23.4. We will consult pharmacy to manage Coumadin. We will recheck INR in a.m. 9/7-INR noted at 2.6. Pharmacy to manage Coumadin. Will recheck INR in a.m. Current Visit: Yes (4) Positive culture findings in sputum Status: Acute Assessment and plan: Sputum culture positive for yeast. We will start fluconazole 200 mg IV daily. Current Visit: Yes Hospitalist: Subjective Interval history: Patient seen and examined, chart reviewed. No significant overnight events reported per staff. The patient is n.p.o. pending EGD this a.m. Exam - Constitutional Vitals: Period Temp Pulse Resp BP Sys/Ahuja Pulse Ox Last 24 Hr 97.3 F-98.0 F 58-80 16-20 110-151/64-88 94-99 General appearance: normal weight, no acute distress - Head Head exam: Present: normal inspection, normocephalic, atraumatic - Eye Eye exam: Present: EOMI, conjunctival injection Pupils: Present: LIVAN, normal accommodation - ENT ENT exam: Present: normal exam, normal external ear exam, normal oropharynx - Neck Neck exam: Present: normal inspection. Absent: lymphadenopathy, meningismus, tenderness, thyromegaly - Respiratory Respiratory exam: Present: other (Crackles scattered bilaterally) - Cardiovascular Cardiovascular exam: Present: regular rate and rhythm. Absent: carotid bruit, diastolic murmur, gallop, JVD, rubs, systolic murmur - GI/Abdominal GI/Abdominal exam: Present: normal bowel sounds, soft - Extremities Exam Extremities exam: Present: normal inspection, normal capillary refill, full ROM. Absent: edema - Back Exam Back exam: Present: normal inspection - Neurological Exam Neurological exam: Present: alert, oriented X3, CN II-XII intact - Psychiatric Psychiatric exam: Present: normal affect, normal mood - Skin Skin exam: Present: normal color, warm, dry Results - Labs CBC & BMP: 12/03/16 07:13 12/03/16 07:13 Lab Results: I have reviewed the past 24 hour labs
[2016-12-03] MEDS: LEVOFLOXACIN 250 MG TABLET PO SCH (11:02)
[2016-12-03] MEDS: KETOROLAC 15 MG/1 ML VIAL IV PRN (15:46)
[2016-12-04] MEDS: KETOROLAC 15 MG/1 ML VIAL IV PRN (01:38)
[2016-12-04] MEDS: BUTALBITAL/ACETAMIN/CAFFEINE 50-325-40 MG TABLET PO PRN (05:23)
[2016-12-04 06:45] LABS: Basophils % 0.2 % (0.0-0.8); Eosinophils # 0.1 10*3/uL (0.0-0.87); Eosinophils % 0.6 % (0.00-10.9); Hematocrit 36.1 VOL% (35.7-47.0); Hemoglobin 11.4 GM/DL (12.0-16.0); Immature Granulocytes % 1.7 %; Lymphocytes # 3.9 10*3/uL (1.4-4.0); Lymphocytes % 32.6 % (21.3-54.2); Mean Corpuscular HGB Conc 31.6 GM/DL (32-36); Mean Corpuscular Hemoglobin 27 PG (27-34); Mean Corpuscular Volume 85.1 FL (87-102); Mean Platelet Volume 11.4 FL (9.6-12.0); Monocytes # 0.6 10*3/uL (0.11-0.8); Monocytes % 5.1 % (1.7-12.7); Neutrophils # 7.2 10*3/uL (1.4-7.4); Neutrophils % 59.8 % (38.7-73.9); Platelet Count 246 T/CUMM (130-400); Red Blood Count 4.24 MC/CUMM (3.8-5.5); Red Cell Distribution Width 16.1 % (9.3-17.3)
[2016-12-04 07:17] LABS: INR 1.7; PT Patient Result 18.3 SECS
[2016-12-04 07:28] LABS: Albumin 2.9 G/DL (3.4-5.0); Bilirubin,Total 0.9 MG/DL (0.2-1.0); Calcium 8.3 MG/DL (8.5-10.1); Magnesium 2.8 MG/DL (1.8-2.4); Osmolality,Calculated 281.5 MOS/KG (273-304); Phosphorous 3.1 MG/DL (2.5-4.9); Potassium 3.8 MMOL/L (3.5-5.1); Total Protein 6.2 G/DL (6.4-8.3)
[2016-12-04] MEDS: ALBUTEROL/IPRATROPIUM 3 ML NEB RESP TX SCH ×3 (07:32→14:14)
--- NOTE | 2016-12-04 08:02 | Pulmonology Progress Note ---
Pulmonary - PN: Subj Interval history: Patient is a 51-year-old white lady that is a former smoker and has not had a component of COPD along with interstitial lung disease. 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 She has been on prednisone and doing a little better. She came in over the weekend with a little more chest congestion and coughing. She apparently is having some trouble swallowing also. She is not having any definite fever. She says she did well last night without any worsening problems. She feels like she is breathing okay at present. She is still waiting on an EGD. She is tolerating everything okay otherwise. Exam (Progress Note) - Constitutional Vitals: Period Temp Pulse Resp BP Sys/Ahuja Pulse Ox Last 24 Hr 96.2 F-97.8 F 58-73 18-20 138-164/74-95 95-98 Exam: General appearance: no acute distress (She is comfortable lying in bed now.) - Head Head exam: Present: normal inspection, normocephalic - Eye Eye exam: Present: EOMI. Absent: scleral icterus Pupils: Present: LIVAN - ENT ENT exam: Present: normal exam - Neck Neck exam: Present: normal inspection. Absent: lymphadenopathy, thyromegaly - Respiratory Respiratory exam: Present: She has good breath sounds bilaterally is moving air well. She has has just minimal crackles now. - Cardiovascular Cardiovascular exam: Present: regular rate and rhythm. Absent: gallop, systolic murmur - GI/Abdominal GI/Abdominal exam: Present: normal bowel sounds, soft. Absent: organomegaly, tenderness - Extremities Exam Extremities exam: Absent: calf tenderness, edema - Neurological Exam Neurological exam: Present: alert, oriented X3, CN II-XII intact - Psychiatric Psychiatric exam: Present: normal affect, normal mood - Skin Skin exam: Present: warm, dry Results - Labs CBC & BMP: 12/04/16 05:22 12/04/16 05:22 Assessment and Plan (1) COPD (chronic obstructive pulmonary disease) with acute bronchitis Status: Chronic Assessment and plan: Patient is a former smoker and does have a component of COPD. She will wheeze at times. She came in coughing and wheezing some home and had bronchitis. Her symptoms are much better and her breathing is much better. Overall her respiratory status is stable. She can go home from a pulmonary standpoint. Current Visit: No (2) Hypertension Status: Acute Assessment and plan: Her blood pressure is being monitored and is stable now. Current Visit: No (3) Interstitial lung disease Status: Chronic Assessment and plan: The patient's open lung biopsy was consistent with Desquamative interstitial pneumonitis. She has responded to prednisone at times. We will change her back over to prednisone today. She will need outpatient follow-up. Current Visit: No (4) Dysphagia Status: Acute Assessment and plan: She is being evaluated by GI. Her INR is 1.7 today. She is still waiting on her EGD. Current Visit: Yes
--- NOTE | 2016-12-04 09:04 | Hospitalist Progress Note ---
Assessment and Plan (1) Acute bronchitis with chronic obstructive pulmonary disease (COPD) Status: Acute Assessment and plan: We will continue antibiotic coverage and intravenous corticosteroids as previously ordered. Continue inhaled bronchodilator treatments as previously ordered and recheck chest x-ray in a.m. Current Visit: No (2) Hyperglycemia Status: Acute Assessment and plan: Blood glucose levels remain moderately elevated. This is largely attributed to the current corticosteroid use. We will continue Accu-Cheks with sliding scale coverage as previously ordered. Current Visit: No (3) Hx pulmonary embolism Status: Acute Assessment and plan: PT and INR noted at 1.8/20.1 today. We will continue Coumadin 10 mg p.o. twice daily and recheck PT/INR in a.m. 9/5-INR not available at this time. We will obtain stat INR. 9/6-PT/INR noted at 2.1 and 23.4. We will consult pharmacy to manage Coumadin. We will recheck INR in a.m. 9/7-INR noted at 1.8 Pharmacy to manage Coumadin. Will recheck INR in a.m. 9/8-PT/INR noted at 1.7/18.3. Pharmacy to manage Coumadin will recheck INR in a.m. Current Visit: Yes (4) Positive culture findings in sputum Status: Acute Assessment and plan: Sputum culture positive for yeast. We will start fluconazole 200 mg IV daily. Current Visit: Yes Hospitalist: Subjective Interval history: Patient seen and examined; chart reviewed. No significant overnight events reported per staff. EGD placed on hold on yesterday due to recent anticoagulation. INR noted at 1.7 and 18.3 today. Exam - Constitutional Vitals: Period Temp Pulse Resp BP Sys/Ahuja Pulse Ox Last 24 Hr 96.2 F-97.8 F 58-73 18-20 138-164/74-95 95-99 General appearance: normal weight, no acute distress - Head Head exam: Present: normal inspection, normocephalic, atraumatic - Eye Eye exam: Present: EOMI. Absent: conjunctival injection Pupils: Present: LIVAN, normal accommodation - ENT ENT exam: Present: normal exam, normal external ear exam, normal oropharynx - Neck Neck exam: Present: normal inspection. Absent: lymphadenopathy, meningismus, thyromegaly - Respiratory Respiratory exam: Present: wheezes (Scattered wheezes) - Cardiovascular Cardiovascular exam: Present: regular rate and rhythm. Absent: carotid bruit, diastolic murmur, gallop, JVD, rubs, systolic murmur - GI/Abdominal GI/Abdominal exam: Present: normal bowel sounds, soft - Extremities Exam Extremities exam: Present: normal inspection, normal capillary refill, full ROM. Absent: edema - Back Exam Back exam: Present: normal inspection - Neurological Exam Neurological exam: Present: alert, oriented X3, CN II-XII intact - Psychiatric Psychiatric exam: Present: normal affect, normal mood - Skin Skin exam: Present: normal color, warm, dry Results - Labs CBC & BMP: 12/04/16 05:22 12/04/16 05:22 Lab Results: I have reviewed the past 24 hour labs
[2016-12-04] MEDS ORDERED: LIDOCAINE 2% 5 ML VIAL ONE (12:12)
[2016-12-04] MEDS ORDERED: PROPOFOL 200 MG/20 ML VIAL IV ONE (12:12)
--- NOTE | 2016-12-04 12:14 | History and Physical Update ---
History and Physical Update - History and Physical H&P was reviewed, the patient examined and there: are no changes in the patients condition since last H&P was completed. - Physical Exam Mental Status: alert and oriented Heart: regular rate and rhythm Lung: clear to auscultation Abdomen: within normal limits Vitals: within normal limits
--- NOTE | 2016-12-04 12:20 | Operative Note ---
Date of procedure: 12/04/16 Pre-op diagnosis: Dysphagia Procedure: Procedure: Esophagogastroduodenoscopy with bougie dilation esophagus Brief clinical abstract: 51-year-old female with GERD complains of dysphagia to solids. Indication for procedure: Esophageal dysphagia Endoscopic findings:[After informed consent was obtained, the patient was placed in the left lateral decubitus position. The gastroscope was inserted in the upper esophagus under direct vision with no resistance encountered. Esophageal mucosa appeared normal down to the squamocolumnar junction. There was a mildly obstructive fibrous appearing stricture at that level consistent with reflux etiology with a small hiatal hernia just distal to this. The endoscope was advanced in the stomach which was carefully examined including retroflexed view of the cardia and fundus with no other abnormalities noted. The pyloric channel, duodenal bulb, second and third portion of the duodenum appeared normal. The endoscope was withdrawn and Sorensen dilator size 50 Vietnamese inserted in the upper esophagus and advancement and the level of the GE junction with mild resistance encountered. No blood was noted on the dilator afterwards and she had no chest pain. She appeared to tolerate the procedure well. Impression: #1 distal esophageal stricture secondary to GERD-status post bougie dilation #2 small hiatal hernia Recommendations: Continue PPI therapy. Redilate. Dysphagia symptoms. I will sign off. Please call if needed. Anesthesia: MAC Surgeon / Physician: Jason Ribeiro Estimated blood loss: none Specimens: none sent Condition: stable Disposition: post procedure unit Results - Labs CBC & BMP: 12/04/16 05:22 12/04/16 05:22 Discharge Plan - Discharge Medications No Action Albuterol Neb [Proventil Neb] 2.5 mg RESP TX Q4HR PRN PRN Reason: Shortness Of Breath/Wheezing ALPRAZolam [Xanax] 0.5 mg PO BID FLUoxetine [PROzac] 20 mg PO BID Budesonide/Formoterol 160-4.5 [Symbicort 160-4.5] 2 puff INH BID Lisinopril/Hydrochlorothiazide [Lisinopril-Hctz 20-12.5 mg Tab] 1 each PO QAM HYDROcodone/ACETAMIN 10-325 [[place] 10-325] 1 tablet PO TID predniSONE TAB [PredniSONE] 20 mg PO QAM Gabapentin Cap/Tab [Neurontin Cap/Tab] 100 mg PO QAM Warfarin [Coumadin] 10 mg PO BID - Follow Up or Referral - Forms/Instructions
--- NOTE | 2016-12-04 12:29 | Anesthesia Post-Op ---
Anesthesia Post OP - Post Ansesthetic Evaluation Patient seen in post op: Yes Resp: within normal limits CV: within normal limits Mental: within normal limits Temp: within normal limits [id number]: within normal limits Nausea and Vomiting: within normal limits Pain: within normal limits
[2016-12-04 12:54] VITALS: BP 134/83
[2016-12-04] MEDS: predniSONE 20 MG TABLET PO SCH (13:38)
[2016-12-04] MEDS: FLUCONAZOLE 200 MG TABLET PO SCH (13:38)
[2016-12-04] MEDS: GABAPENTIN 100 MG CAPSULE PO SCH (13:38)
[2016-12-04] MEDS: LEVOFLOXACIN 250 MG TABLET PO SCH (13:39)
[2016-12-04] MEDS: BENZONATATE 100 MG CAPSULE PO SCH ×2 (13:39→14:25)
[2016-12-04] MEDS: ALPRAZolam 0.5 MG TABLET PO SCH (13:39)
[2016-12-04] MEDS: FLUoxetine 20 MG CAPSULE PO SCH (13:39)
[2016-12-04] MEDS: LANSOPRAZOLE ODT 30 MG TABLET PO SCH (13:39)
[2016-12-04] MEDS: BUDESONIDE/FORMOTEROL 160-4.5 INHALER 6 GM INH SCH (13:39)
--- NOTE | 2016-12-04 15:44 | Discharge Summary ---
Hospital Course - Hospital Course Hospital Course: 51 year old female presented with worsening SOB and productive cough along with wheezing, fevers, and chills. She has chronic pulmonary fibrosis with chronic respiratory failure on home oxygen 2 L. She also stated that she was diagnosed with pulmonary embolism last month in [facility]. She has some trouble with swallowing and dysphagia as well. She was admitted to the hospital and was found to have acute bronchitis causing her symptoms, she was treated with antibiotics and her breathing improved. She also had problem with migraine headache that responded well to Fioricet. CT head was grossly unremarkable. Her dysphagia GI were consulted. She underwent an EGD by Dr. Ribeiro and was found to have distal esophageal stricture which required dilatation, she also had a small hiatal hernia and recommendation was to continue PPI therapy. Swelling has improved after her EGD dilation. Initially she stated that she was on Coumadin for pulmonary embolism and then pharmacy found out she was actually on Xarelto. Therefore she is going to be discharged on Xarelto. She has reached maximal hospital benefit and being discharged home. Total discharge time was 39 minutes. - Time spent with patient Time with patient DS: Greater than 30 minutes Diagnosis - Discharge Diagnosis (1) Acute bronchitis with chronic obstructive pulmonary disease (COPD) Status: Resolved Discharge Plan - Discharge Data Disposition: Disch To Home/Self Care Condition at Discharge: Stable Discharge Diet: advance to your usual diet Activity: resume usual activities as tolerated Hygiene: no restrictions Weight Bearing at Discharge: full weight bearing Driving: no restrictions Contact your physician if you experience:: fever over 101, Shortness of breath - Discharge Medications New Benzonatate [Tessalon] 200 mg PO TID #90 capsule Fluconazole Tab [Diflucan Tab] 200 mg PO DAILY #7 tablet guaiFENesin/DM LIQUID [Robitussin Dm] 5 ml PO Q6H PRN #1 PRN Reason: Cough Levofloxacin Tab [Levaquin Tab] 250 mg PO Q24H #7 tablet Rivaroxaban [Xarelto] 20 mg PO DAILY W/BREAKFAST #30 tablet Butalbital/Acet/Caff 50-325-40 [Fioricet 50-325-40 mg Tablet] 1 tablet PO Q4H PRN #30 tablet PRN Reason: Headache Lansoprazole Odt Tab [Prevacid Solutab] 30 mg PO BID #60 tablet Continue Albuterol Neb [Proventil Neb] 2.5 mg RESP TX Q4HR PRN PRN Reason: Shortness Of Breath/Wheezing ALPRAZolam [Xanax] 0.5 mg PO BID FLUoxetine [PROzac] 20 mg PO BID Budesonide/Formoterol 160-4.5 [Symbicort 160-4.5] 2 puff INH BID Lisinopril/Hydrochlorothiazide [Lisinopril-Hctz 20-12.5 mg Tab] 1 each PO QAM HYDROcodone/ACETAMIN 10-325 [[place] 10-325] 1 tablet PO TID predniSONE TAB [PredniSONE] 20 mg PO QAM Gabapentin Cap/Tab [Neurontin Cap/Tab] 100 mg PO QAM Discontinued Warfarin [Coumadin] 10 mg PO BID - Follow Up or Referral - Forms/Instructions Exam - Constitutional Vitals: Period Temp Pulse Resp BP Sys/Ahuja Pulse Ox Last 24 Hr 96.2 F-97.8 F 58-73 14-20 134-164/65-95 95-100 Exam: General: [No Acute Distress] HEENT: [Normocephalic, atraumatic, Extra ocular movements intact] Neck: [Supple, No JVD] Chest: [Coarse lung crackles b/L] CV: [S1 + S2 audible without murmur, gallop or rub] Abd: [soft, NT, Non-distended, BS +] Ext: [No edema] Skin: [No purpura, bruising or rash] Rheumatologic: [No Joint deformities] Neurologic: [Strength 5/5 all extremities, no gross sensory deficits] Discharge Results Labs on day of discharge: Labs from last 24 hours 12/04/16 12/04/16 12/04/16 05:22 05:22 05:22 WBC 12.0 RBC 4.24 Hgb 11.4 L Hct 36.1 MCV 85.1 L MCH 27 MCHC 31.6 L RDW 16.1 Plt Count 246 MPV 11.4 Neut % (Auto) 59.8 Lymph % (Auto) 32.6 Martin % (Auto) 5.1 Eos % (Auto) 0.6 Baso % (Auto) 0.2 Neut # (Auto) 7.2 Lymph # (Auto) 3.9 Martin # (Auto) 0.6 Eos # (Auto) 0.1 Baso # (Auto) 0.0 Immature Gran % 1.7 Nucleated RBC % 0.0 Immature Gran # 0.20 Nucleated RBCs # 0.00 Immature Plt Fraction 0.0 INR 1.7 PT Patient/Control Mix 18.3 Sodium 139 Potassium 3.8 Chloride 97 L Carbon Dioxide 38 H Anion Gap 7.8 BUN 28 H Creatinine 0.70 GFR Calculation 110 BUN/Creatinine Ratio 40.00 H Glucose 81 Calculated Osmolality 281.5 Calcium 8.3 L Phosphorus 3.1 Magnesium 2.8 H Total Bilirubin 0.90 AST 14 ALT 43 Alkaline Phosphatase 69 Total Protein 6.2 L Albumin 2.9 L Globulin 3.3 Albumin/Globulin Ratio 0.8 L DS: Provider Date of admission: 11/27/16 21:45 Primary care physician: Adriano Florez Attending physician on admission: Sobeida Crowell MD Consults: 11/27/16 21:49 Consult to Physician [CONS] Routine Comment: pulmonary fibrosis exacerbation/acute bronchitis Consulting Provider: Jason Wilcox When should Consulting Provider be notified: In am Person Notified: MD wilkins 11/29/16 16:26 Consult to Physician [CONS] Routine Comment: Please evaluate for dysphagia Consulting Provider: Jason Ribeiro When should Consulting Provider be notified: In am When should Consulting Provider be notified: In am Person Notified: MD wilkins Date Notified: 11/30/16 Time Notified: 09:00 12/01/16 14:03 Consult to Physician [CONS] Routine Comment: Please evaluate for persistent headache Consulting Provider: Stephan Zhang Person Notified: min Date Notified: 12/01/16 Time Notified: 14:39 Discharging clinician: Gely Bautista MD
[2016-12-05] MEDS ORDERED: RIVAROXABAN 20 MG TABLET PO SCH (08:00)
== END 2016-12-04 15:20 | disposition home or self-care (01) | DRG 191 ==
LOC: EDBD → EDUNIT# → N.ED 16:45 → SUATTDRO 21:45 → N.EDINP 21:45 → N.5E 22:10
PROVIDERS: ADMIT Internal Medicine; ATTEND Hospitalist

== ENCOUNTER 2019-03-05 22:22 | Observation (INO) ==
[2019-03-05] MEDS ORDERED: ALBUTEROL/IPRATROPIUM 3 ML NEB RESP TX STA (23:06)
[2019-03-06 00:14] LABS: Basophils % 0.2 % (0.0-0.8); Eosinophils # 0.1 10*3/uL (0.0-0.87); Eosinophils % 0.6 % (0.00-10.9); Hematocrit 46.6 VOL% (35.7-47.0); Immature Granulocytes % 0.4 %; Immature Granulocytes Absolute 0.04 #; Lymphocytes # 2.2 10*3/uL (1.4-4.0); Lymphocytes % 20.8 % (21.3-54.2); Mean Corpuscular HGB Conc 32.2 GM/DL (32-36); Mean Corpuscular Volume 89.1 FL (87-102); Mean Platelet Volume 9.6 FL (9.6-12.0); Monocytes % 2.2 % (1.7-12.7); Neutrophils % 75.8 % (38.7-73.9); Platelet Count 355 T/CUMM (130-400); Red Blood Count 5.23 MC/CUMM (3.8-5.5); Red Cell Distribution Width 13.3 % (9.3-17.3); White Blood Count 10.7 T/CUMM (4-12)
[2019-03-06 00:34] LABS: Alanine Aminotransferase 19 U/L (13-56); Alkaline Phosphatase 152 U/L (45-117); Aspartate Amino Transferase 21 U/L (0-37); Bilirubin,Total < 0.39 MG/DL (0.2-1.0); Blood Urea Nitrogen 14 MG/DL (7-18); Calcium 8.9 MG/DL (8.5-10.1); Estimated Glom Filtration Rate 69 ML/MIN; Glucose 99 MG/DL (74-106); Total Protein 8.2 G/DL (6.4-8.3)
[2019-03-06] MEDS ORDERED: predniSONE 10 MG TABLET PO STA (00:42)
[2019-03-06] MEDS ORDERED: SODIUM CHLORIDE 0.9% 1,000 ML IV STA (01:19)
[2019-03-06] MEDS ORDERED: CEFEPIME 1,000 MG in SODIUM CHLORIDE 0.9% 100 ML IV STA (01:21)
[2019-03-06] MEDS ORDERED: ALBUTEROL 2.5 MG/3 ML NEB RESP TX STA (01:22)
[2019-03-06] MEDS ORDERED: traZODone 50 MG TABLET PO PRN (02:29)
[2019-03-06] MEDS ORDERED: POTASSIUM CHLORIDE 20 MEQ TABLET PO PRN (02:29)
[2019-03-06] MEDS ORDERED: BISACODYL 5 MG TABLET PO PRN (02:29)
[2019-03-06] MEDS ORDERED: diphenhydrAMINE CAP 25 MG CAPSULE PO PRN (02:29)
[2019-03-06] MEDS ORDERED: ACETAMINOPHEN 325 MG TABLET PO PRN (02:29)
[2019-03-06] MEDS ORDERED: ONDANSETRON 4 MG/2 ML VIAL IV PRN (02:29)
[2019-03-06] MEDS ORDERED: guaiFENesin/DM ER 600-30 MG TABLET PO PRN (02:29)
[2019-03-06] MEDS ORDERED: NICOTINE 21 MG/24 HR PATCH TRANSDERM PRN (02:29)
[2019-03-06] MEDS ORDERED: INFLUENZA VIRUS VACCINE 0.5 ML SYRINGE IM ONE (04:36)
[2019-03-06] MEDS: methylPREDNISolone SOD SUC 40 MG/1 ML VIAL IV SCH ×3 (04:36→18:10)
[2019-03-06] MEDS: ALBUTEROL/IPRATROPIUM 3 ML NEB RESP TX SCH ×3 (07:48→19:16)
[2019-03-06] MEDS ORDERED: METHOCARBAMOL 500 MG TABLET PO PRN (08:36)
[2019-03-06] MEDS ORDERED: AZITHROMYCIN INJ 500 MG in SODIUM CHLORIDE 0.9% 250 ML IV ONE (09:06)
[2019-03-06] MEDS: CEFEPIME 1,000 MG in SODIUM CHLORIDE 0.9% 100 ML IV SCH ×3 (09:13→20:40)
[2019-03-06] MEDS: MONTELUKAST 10 MG TABLET PO SCH (09:27)
[2019-03-06] MEDS: HYDROcodone/CHLORPHENIRAMINE ER 5 ML UDCUP PO SCH ×2 (09:27→21:51)
[2019-03-06] MEDS: BUDESONIDE/FORMOTEROL 160-4.5 INHALER 6 GM INH SCH ×2 (14:14→21:52)
[2019-03-06] MEDS: DORNASE ALFA 2.5 MG/2.5 ML VIAL RESP TX SCH ×2 (15:32→19:23)
[2019-03-06] MEDS: CLORAZEPATE 3.75 MG TABLET PO SCH ×2 (16:17→21:51)
[2019-03-06] MEDS: BENZONATATE 100 MG CAPSULE PO PRN (18:16)
[2019-03-07] MEDS: ALBUTEROL/IPRATROPIUM 3 ML NEB RESP TX SCH ×3 (01:21→12:48)
[2019-03-07] MEDS: methylPREDNISolone SOD SUC 40 MG/1 ML VIAL IV SCH (02:34)
[2019-03-07] MEDS: CEFEPIME 1,000 MG in SODIUM CHLORIDE 0.9% 100 ML IV SCH ×2 (02:36→09:20)
[2019-03-07] MEDS: BENZONATATE 100 MG CAPSULE PO PRN (05:19)
[2019-03-07 05:39] LABS: Basophils % 0.1 % (0.0-0.8); Hematocrit 36.3 VOL% (35.7-47.0); Hemoglobin 11.6 GM/DL (12.0-16.0); Immature Granulocytes % 0.5 %; Immature Granulocytes Absolute 0.08 #; Lymphocytes # 1.5 10*3/uL (1.4-4.0); Lymphocytes % 8.9 % (21.3-54.2); Mean Corpuscular Volume 91.2 FL (87-102); Mean Platelet Volume 10.3 FL (9.6-12.0); Monocytes % 0.8 % (1.7-12.7); Neutrophils % 89.7 % (38.7-73.9); Platelet Count 280 T/CUMM (130-400); Red Blood Count 3.98 MC/CUMM (3.8-5.5); Red Cell Distribution Width 13.6 % (9.3-17.3); White Blood Count 16.3 T/CUMM (4-12)
[2019-03-07 06:04] LABS: Calcium 8.7 MG/DL (8.5-10.1); Osmolality,Calculated 280.5 MOS/KG (273-304)
[2019-03-07] MEDS: DORNASE ALFA 2.5 MG/2.5 ML VIAL RESP TX SCH (07:57)
[2019-03-07] MEDS ORDERED: AZITHROMYCIN 250 MG TABLET PO SCH (09:00)
[2019-03-07] MEDS: BUDESONIDE/FORMOTEROL 160-4.5 INHALER 6 GM INH SCH (09:24)
[2019-03-07] MEDS: CLORAZEPATE 3.75 MG TABLET PO SCH (09:24)
[2019-03-07] MEDS: HYDROcodone/CHLORPHENIRAMINE ER 5 ML UDCUP PO SCH (09:24)
[2019-03-07] MEDS: MONTELUKAST 10 MG TABLET PO SCH (09:25)
[2019-03-07 11:57] VITALS: BP 90/42
== END 2019-03-07 13:45 | disposition home or self-care (01) ==
LOC: EDUNIT# → N.ED 22:22 → N.EDINP 22:22 → N.2W 03-06 03:43
PROVIDERS: ADMIT Internal Medicine; ATTEND Internal Medicine

== ENCOUNTER 2022-03-02 13:55 | Inpatient (IN) ==
[2022-03-02 15:26] LABS: Eosinophils % 0.1 % (0.00-10.9); Hematocrit 29.1 VOL% (35.7-47.0); Immature Granulocytes % 0.8 %; Immature Granulocytes Absolute 0.09 #; Lymphocytes # 0.4 10*3/uL (1.4-4.0); Lymphocytes % 3.3 % (21.3-54.2); Mean Corpuscular HGB Conc 30.9 GM/DL (32-36); Mean Corpuscular Volume 95.7 FL (87-102); Mean Platelet Volume 10.5 FL (9.6-12.0); Monocytes # 0.1 10*3/uL (0.11-0.8); Monocytes % 1.2 % (1.7-12.7); Neutrophils % 94.6 % (38.7-73.9); Platelet Count 255 T/CUMM (130-400); Red Blood Count 3.04 MC/CUMM (3.8-5.5); Red Cell Distribution Width 15.7 % (9.3-17.3); White Blood Count 11.3 T/CUMM (4-12)
[2022-03-02 15:29] LABS: Arterial Base Excess iSTAT 4 MMOL/L (-2.5-2.5); Arterial Bicarbonate iSTAT 29.1 MMOL/L (20-26); Arterial O2 Saturation iSTAT 97 % (95-100); Arterial PCO2 iSTAT 48 MM HG (35-48); Arterial PO2 iSTAT 94 MM HG (80-95); Arterial Total CO2 iSTAT 31 MMO/L (23-27); Arterial pH iSTAT 7.391 (7.35-7.45)
[2022-03-02 15:46] LABS: Alanine Aminotransferase 19 U/L (13-56); Albumin 2.4 G/DL (3.4-5.0); Alkaline Phosphatase 147 U/L (45-117); Aspartate Amino Transferase 14 U/L (0-37); Bilirubin,Total < 0.39 MG/DL (0.20-1.00); Blood Urea Nitrogen 19 MG/DL (7-18); Calcium 8.6 MG/DL (8.5-10.1); Carbon Dioxide 28 MMOL/L (21-32); Chloride 105 MMOL/L (98-107); Glucose 127 MG/DL (74-106); Osmolality,Calculated 280.5 MOS/KG (273-304); Potassium 4.1 MMOL/L (3.5-5.1); Sodium 139 MMOL/L (136-145); Total Protein 7.3 G/DL (6.4-8.2)
[2022-03-02] MEDS ORDERED: methylPREDNISolone SOD SUC 125 MG/2 ML VIAL IV STA (15:50)
[2022-03-02] MEDS ORDERED: LEVOFLOXACIN INJ 500 MG/100 ML PREMIX IV STA (15:50)
[2022-03-02 16:15] LABS: Bacteria,Urine Occasional /HPF (Few); Mucus,Urine Few /LPF (Occasional); RBC,Urine 1 /HPF (0-4); Squamous Epithelial Cell,Urine Occasional /HPF (0-10)
[2022-03-02 16:16] LABS: Protein,Urine 30 mg/dL (Negative); Urine Appearance Clear (Clear); Urine Color Yellow (Yellow); Urine Specific Gravity 1.025 (1.001-1.035)
[2022-03-02 16:17] LABS: Bilirubin,Urine Small mg/dL (Negative); Blood, Urine Negative (Negative); Glucose,Urine (UA) Negative (Negative); Ketones,Urine Negative (Negative); Nitrite,Urine Negative (Negative)
[2022-03-02 16:29] LABS: PT Patient Result 10.8 SECS (10.1-12.1); Partial Thromboplastin Time 25.1 SECS (23.7-32.9)
[2022-03-02 16:46] LABS: Lymphocytes 1 % (20-55); Total Cells Counted 100
[2022-03-02 16:47] LABS: Hypochromia Slight; Microcytosis Slight; Platelet Estimate Normal; Polychromasia Few
[2022-03-02] MEDS ORDERED: hydrALAZINE 20 MG/1 ML VIAL IV PRN (17:23)
[2022-03-02] MEDS ORDERED: NICOTINE 21 MG/24 HR PATCH TRANSDERM PRN (17:23)
[2022-03-02] MEDS ORDERED: ONDANSETRON 4 MG/2 ML VIAL IV PRN (17:23)
[2022-03-02] MEDS ORDERED: ACETAMINOPHEN 325 MG TABLET PO PRN (17:23)
[2022-03-02] MEDS ORDERED: FUROSEMIDE 40 MG/4 ML VIAL IV STA (17:59)
[2022-03-02 18:37] LABS: Folate 18.62 NG/ML (5.38-24.0); Vitamin B12 646 PG/ML (211-911)
[2022-03-02 18:37] LABS: Hematocrit 28.5 VOL% (35.7-47.0); Immature Granulocytes % 0.6 %; Immature Granulocytes Absolute 0.06 #; Lymphocytes # 0.3 10*3/uL (1.4-4.0); Lymphocytes % 2.8 % (21.3-54.2); Mean Corpuscular HGB Conc 31.6 GM/DL (32-36); Mean Corpuscular Volume 93.4 FL (87-102); Mean Platelet Volume 10.4 FL (9.6-12.0); Monocytes # 0.1 10*3/uL (0.11-0.8); Monocytes % 0.5 % (1.7-12.7); Neutrophils % 96.1 % (38.7-73.9); Platelet Count 249 T/CUMM (130-400); Red Blood Count 3.05 MC/CUMM (3.8-5.5); Red Cell Distribution Width 15.9 % (9.3-17.3); White Blood Count 9.4 T/CUMM (4-12)
[2022-03-02] MEDS: ALBUTEROL 2.5 MG/3 ML NEB RESP TX SCH ×2 (19:26→20:10)
[2022-03-02 19:40] LABS: Sedimentation Rate-Westergren 119 MM/HR (0-30)
[2022-03-02 20:06] LABS: Lymphocytes 2 % (20-55); Total Cells Counted 100
[2022-03-02 20:07] LABS: Hypochromia Slight; Polychromasia Slight
[2022-03-02 20:14] LABS: % Iron Saturation 7.3 % (18-50); Ferritin 400.6 ng/mL (8-252)
[2022-03-02] MEDS ORDERED: ALPRAZolam 0.5 MG TABLET PO ONE (20:48)
[2022-03-02] MEDS: MONTELUKAST 10 MG TABLET PO SCH (20:55)
[2022-03-02] MEDS: guaiFENesin/DM ER 600-30 MG TABLET PO SCH (20:55)
[2022-03-02] MEDS: ENOXAPARIN 40 MG/0.4 ML SYRINGE SUBCUT SCH (21:57)
[2022-03-02] MEDS: BUDESONIDE/FORMOTEROL 160-4.5 INHALER 6 GM INH SCH (21:57)
[2022-03-02] MEDS: MYLANTA/LIDO VISC/NYST 180 ML BOTTLE SWISH/SWAL SCH (21:57)
[2022-03-02 22:35] LABS: Arterial Base Excess iSTAT 9 MMOL/L (-2.5-2.5); Arterial Bicarbonate iSTAT 34.8 MMOL/L (20-26); Arterial O2 Saturation iSTAT 100 % (95-100); Arterial PCO2 iSTAT 53 MM HG (35-48); Arterial PO2 iSTAT 300 MM HG (80-95); Arterial Total CO2 iSTAT 36 MMO/L (23-27); Arterial pH iSTAT 7.425 (7.35-7.45)
[2022-03-03 01:10] LABS: Arterial Base Excess iSTAT 7 MMOL/L (-2.5-2.5); Arterial Bicarbonate iSTAT 33.7 MMOL/L (20-26); Arterial O2 Saturation iSTAT 100 % (95-100); Arterial PCO2 iSTAT 56 MM HG (35-48); Arterial PO2 iSTAT 191 MM HG (80-95); Arterial Total CO2 iSTAT 35 MMO/L (23-27); Arterial pH iSTAT 7.388 (7.35-7.45)
[2022-03-03 06:38] LABS: Hematocrit 28.6 VOL% (35.7-47.0); Hemoglobin 8.8 GM/DL (12.0-16.0); Immature Granulocytes % 1.3 %; Lymphocytes # 0.5 10*3/uL (1.4-4.0); Lymphocytes % 5.9 % (21.3-54.2); Mean Corpuscular HGB Conc 30.8 GM/DL (32-36); Mean Corpuscular Volume 97.3 FL (87-102); Mean Platelet Volume 10.6 FL (9.6-12.0); Monocytes # 0.1 10*3/uL (0.11-0.8); Monocytes % 1.4 % (1.7-12.7); Neutrophils % 91.4 % (38.7-73.9); Platelet Count 286 T/CUMM (130-400); Red Blood Count 2.94 MC/CUMM (3.8-5.5); Red Cell Distribution Width 15.6 % (9.3-17.3); White Blood Count 7.9 T/CUMM (4-12)
[2022-03-03 07:04] LABS: Hypochromia Slight; Lymphocytes 4 % (20-55); Microcytosis Slight; Platelet Estimate Adequate; Total Cells Counted 100
[2022-03-03 07:08] LABS: Calcium 8.9 MG/DL (8.5-10.1); Osmolality,Calculated 275.1 MOS/KG (273-304); Potassium 3.8 MMOL/L (3.5-5.1); Risk Ratio 3.11; Thyroid Stimulating Hormone 0.2 uIU/ml (0.358-3.74); VLDL Cholesterol 26.6 MG/DL
[2022-03-03] MEDS: ALBUTEROL 2.5 MG/3 ML NEB RESP TX SCH ×3 (07:30→19:38)
[2022-03-03 08:39] LABS: Hemoglobin A1 (Alkaline) 97.9 % (96.5-98.5); Hemoglobin A2 (Alkaline) 2.1 % (1.5-3.5)
[2022-03-03] MEDS: methylPREDNISolone SOD SUC 40 MG/1 ML VIAL IV SCH ×2 (09:08→21:33)
[2022-03-03] MEDS: PANTOPRAZOLE 40 MG VIAL IV SCH (09:08)
[2022-03-03] MEDS: MYLANTA/LIDO VISC/NYST 180 ML BOTTLE SWISH/SWAL SCH ×4 (09:08→21:32)
[2022-03-03] MEDS: guaiFENesin/DM ER 600-30 MG TABLET PO SCH ×2 (09:08→21:33)
[2022-03-03] MEDS: BUDESONIDE/FORMOTEROL 160-4.5 INHALER 6 GM INH SCH ×3 (09:09→21:33)
[2022-03-03] MEDS: LEVOFLOXACIN INJ 750 MG/150 ML PREMIX IV SCH (15:34)
[2022-03-03] MEDS ORDERED: BENZONATATE 100 MG CAPSULE PO PRN (18:12)
[2022-03-03] MEDS: ENOXAPARIN 40 MG/0.4 ML SYRINGE SUBCUT SCH ×2 (21:12→21:32)
[2022-03-03] MEDS: MONTELUKAST 10 MG TABLET PO SCH (21:33)
[2022-03-03] MEDS: CHOLECALCIFEROL 5,000 UNIT TABLET PO SCH (21:33)
[2022-03-04] MEDS: ALBUTEROL 2.5 MG/3 ML NEB RESP TX SCH ×4 (00:05→19:23)
[2022-03-04 04:40] LABS: Basophils % 0.1 % (0.0-0.8); Hematocrit 27.2 VOL% (35.7-47.0); Hemoglobin 8.3 GM/DL (12.0-16.0); Immature Granulocytes % 0.2 %; Immature Granulocytes Absolute 0.02 #; Lymphocytes # 0.4 10*3/uL (1.4-4.0); Lymphocytes % 4.6 % (21.3-54.2); Mean Corpuscular HGB Conc 30.5 GM/DL (32-36); Mean Corpuscular Volume 97.1 FL (87-102); Mean Platelet Volume 10.3 FL (9.6-12.0); Monocytes # 0.1 10*3/uL (0.11-0.8); Monocytes % 0.9 % (1.7-12.7); Neutrophils % 94.2 % (38.7-73.9); Platelet Count 233 T/CUMM (130-400); Red Cell Distribution Width 15.6 % (9.3-17.3); White Blood Count 8.9 T/CUMM (4-12)
[2022-03-04 05:10] LABS: Hypochromia Slight; Lymphocytes 2 % (20-55); Platelet Estimate Adequate; Total Cells Counted 100
[2022-03-04 05:18] LABS: Calcium 8.6 MG/DL (8.5-10.1); Osmolality,Calculated 284.5 MOS/KG (273-304); Potassium 4.2 MMOL/L (3.5-5.1)
[2022-03-04] MEDS: MYLANTA/LIDO VISC/NYST 180 ML BOTTLE SWISH/SWAL SCH ×4 (06:38→21:06)
[2022-03-04] MEDS: PANTOPRAZOLE 40 MG VIAL IV SCH (08:16)
[2022-03-04] MEDS: FERRIC GLUCONATE COMPLEX 125 MG in SODIUM CHLORIDE 0.9% 100 ML IV SCH (08:16)
[2022-03-04] MEDS: guaiFENesin/DM ER 600-30 MG TABLET PO SCH ×2 (08:17→21:05)
[2022-03-04] MEDS: methylPREDNISolone SOD SUC 40 MG/1 ML VIAL IV SCH ×2 (08:17→21:06)
[2022-03-04] MEDS: CHOLECALCIFEROL 5,000 UNIT TABLET PO SCH ×2 (08:17→21:06)
[2022-03-04] MEDS: BUDESONIDE/FORMOTEROL 160-4.5 INHALER 6 GM INH SCH ×2 (10:13→21:05)
[2022-03-04] MEDS: LEVOFLOXACIN INJ 750 MG/150 ML PREMIX IV SCH (14:42)
[2022-03-04] MEDS: LACTATED RINGERS 1,000 ML IV SCH (14:42)
[2022-03-04] MEDS: MONTELUKAST 10 MG TABLET PO SCH (21:05)
[2022-03-04] MEDS: ENOXAPARIN 40 MG/0.4 ML SYRINGE SUBCUT SCH (21:06)
[2022-03-05] MEDS: ALBUTEROL 2.5 MG/3 ML NEB RESP TX SCH ×4 (00:22→19:16)
[2022-03-05] MEDS: LACTATED RINGERS 1,000 ML IV SCH ×4 (04:17→20:09)
[2022-03-05 04:59] LABS: Hematocrit 27.5 VOL% (35.7-47.0); Hemoglobin 8.4 GM/DL (12.0-16.0); Immature Granulocytes % 0.8 %; Immature Granulocytes Absolute 0.07 #; Lymphocytes # 0.4 10*3/uL (1.4-4.0); Lymphocytes % 4.6 % (21.3-54.2); Mean Corpuscular HGB Conc 30.5 GM/DL (32-36); Mean Corpuscular Volume 97.5 FL (87-102); Mean Platelet Volume 10.4 FL (9.6-12.0); Monocytes # 0.1 10*3/uL (0.11-0.8); Monocytes % 1.4 % (1.7-12.7); Neutrophils % 93.2 % (38.7-73.9); Platelet Count 216 T/CUMM (130-400); Red Blood Count 2.82 MC/CUMM (3.8-5.5); Red Cell Distribution Width 15.8 % (9.3-17.3)
[2022-03-05 05:14] LABS: Calcium 8.8 MG/DL (8.5-10.1); Osmolality,Calculated 282.4 MOS/KG (273-304); Potassium 4.3 MMOL/L (3.5-5.1)
[2022-03-05 05:27] LABS: Lymphocytes 5 % (20-55); Total Cells Counted 100
[2022-03-05 05:28] LABS: Hypochromia Slight; Microcytosis Slight; Platelet Estimate Adequate
[2022-03-05] MEDS: MYLANTA/LIDO VISC/NYST 180 ML BOTTLE SWISH/SWAL SCH ×4 (06:31→20:07)
[2022-03-05] MEDS: BUDESONIDE/FORMOTEROL 160-4.5 INHALER 6 GM INH SCH ×2 (08:27→20:07)
[2022-03-05] MEDS: guaiFENesin/DM ER 600-30 MG TABLET PO SCH ×2 (08:28→20:07)
[2022-03-05] MEDS: FERRIC GLUCONATE COMPLEX 125 MG in SODIUM CHLORIDE 0.9% 100 ML IV SCH (08:28)
[2022-03-05] MEDS: CHOLECALCIFEROL 5,000 UNIT TABLET PO SCH ×2 (08:28→20:07)
[2022-03-05] MEDS: methylPREDNISolone SOD SUC 40 MG/1 ML VIAL IV SCH ×2 (08:29→20:07)
[2022-03-05] MEDS: PANTOPRAZOLE 40 MG VIAL IV SCH (08:29)
[2022-03-05] MEDS: LEVOFLOXACIN 750 MG TABLET PO SCH (13:06)
[2022-03-05] MEDS: MONTELUKAST 10 MG TABLET PO SCH (20:07)
[2022-03-06] MEDS: ALBUTEROL 2.5 MG/3 ML NEB RESP TX SCH ×5 (00:41→23:57)
[2022-03-06] MEDS: LACTATED RINGERS 1,000 ML IV SCH ×2 (05:10→17:24)
[2022-03-06] MEDS: PANTOPRAZOLE 40 MG TABLET PO SCH (05:49)
[2022-03-06] MEDS: FERRIC GLUCONATE COMPLEX 125 MG in SODIUM CHLORIDE 0.9% 100 ML IV SCH (09:35)
[2022-03-06] MEDS: BUDESONIDE/FORMOTEROL 160-4.5 INHALER 6 GM INH SCH ×2 (09:35→22:21)
[2022-03-06] MEDS: MYLANTA/LIDO VISC/NYST 180 ML BOTTLE SWISH/SWAL SCH ×4 (09:35→22:21)
[2022-03-06] MEDS: methylPREDNISolone SOD SUC 40 MG/1 ML VIAL IV SCH ×2 (09:35→22:23)
[2022-03-06] MEDS: LEVOFLOXACIN 750 MG TABLET PO SCH (09:36)
[2022-03-06] MEDS: guaiFENesin/DM ER 600-30 MG TABLET PO SCH ×2 (09:36→22:20)
[2022-03-06] MEDS: CHOLECALCIFEROL 5,000 UNIT TABLET PO SCH ×2 (09:37→22:20)
[2022-03-06] MEDS ORDERED: hydrALAZINE 20 MG/1 ML VIAL IV PRN (16:10)
[2022-03-06] MEDS: METOPROLOL TARTRATE 25 MG TABLET PO SCH (17:25)
[2022-03-06] MEDS: LOSARTAN 50 MG TABLET PO SCH (17:26)
[2022-03-06] MEDS: MONTELUKAST 10 MG TABLET PO SCH (22:20)
[2022-03-07] MEDS: ALBUTEROL 2.5 MG/3 ML NEB RESP TX SCH ×4 (00:48→19:22)
[2022-03-07] MEDS: METOPROLOL TARTRATE 25 MG TABLET PO SCH ×4 (01:01→18:14)
[2022-03-07] MEDS: LACTATED RINGERS 1,000 ML IV SCH ×4 (03:27→22:37)
[2022-03-07] MEDS: PANTOPRAZOLE 40 MG TABLET PO SCH (05:41)
[2022-03-07] MEDS: MYLANTA/LIDO VISC/NYST 180 ML BOTTLE SWISH/SWAL SCH ×4 (07:30→21:38)
[2022-03-07] MEDS: LEVOFLOXACIN 750 MG TABLET PO SCH (09:53)
[2022-03-07] MEDS: guaiFENesin/DM ER 600-30 MG TABLET PO SCH ×2 (09:53→21:36)
[2022-03-07] MEDS: LOSARTAN 50 MG TABLET PO SCH (09:53)
[2022-03-07] MEDS: CHOLECALCIFEROL 5,000 UNIT TABLET PO SCH ×2 (09:54→21:38)
[2022-03-07] MEDS: FERRIC GLUCONATE COMPLEX 125 MG in SODIUM CHLORIDE 0.9% 100 ML IV SCH (09:55)
[2022-03-07] MEDS: methylPREDNISolone SOD SUC 40 MG/1 ML VIAL IV SCH ×2 (09:55→21:37)
[2022-03-07] MEDS: BUDESONIDE/FORMOTEROL 160-4.5 INHALER 6 GM INH SCH ×2 (10:10→21:38)
[2022-03-07] MEDS: MONTELUKAST 10 MG TABLET PO SCH (21:36)
[2022-03-08] MEDS: METOPROLOL TARTRATE 25 MG TABLET PO SCH ×4 (00:51→17:38)
[2022-03-08] MEDS: ALBUTEROL 2.5 MG/3 ML NEB RESP TX SCH ×4 (00:55→20:53)
[2022-03-08] MEDS: PANTOPRAZOLE 40 MG TABLET PO SCH (05:41)
[2022-03-08] MEDS: methylPREDNISolone SOD SUC 40 MG/1 ML VIAL IV SCH ×2 (09:05→20:43)
[2022-03-08] MEDS: LEVOFLOXACIN 750 MG TABLET PO SCH (09:05)
[2022-03-08] MEDS: LOSARTAN 50 MG TABLET PO SCH (09:05)
[2022-03-08] MEDS: guaiFENesin/DM ER 600-30 MG TABLET PO SCH ×2 (09:05→20:43)
[2022-03-08] MEDS: CHOLECALCIFEROL 5,000 UNIT TABLET PO SCH ×2 (09:05→20:43)
[2022-03-08] MEDS: BUDESONIDE/FORMOTEROL 160-4.5 INHALER 6 GM INH SCH ×2 (09:07→20:43)
[2022-03-08] MEDS: MYLANTA/LIDO VISC/NYST 180 ML BOTTLE SWISH/SWAL SCH ×4 (09:07→20:43)
[2022-03-08] MEDS: FERRIC GLUCONATE COMPLEX 125 MG in SODIUM CHLORIDE 0.9% 100 ML IV SCH (09:11)
[2022-03-08] MEDS: LACTATED RINGERS 1,000 ML IV SCH ×2 (13:28→17:38)
[2022-03-08] MEDS: MONTELUKAST 10 MG TABLET PO SCH (20:43)
[2022-03-09] MEDS: METOPROLOL TARTRATE 25 MG TABLET PO SCH ×5 (00:25→23:51)
[2022-03-09] MEDS: ALBUTEROL 2.5 MG/3 ML NEB RESP TX SCH ×4 (01:31→19:19)
[2022-03-09] MEDS: PANTOPRAZOLE 40 MG TABLET PO SCH (05:52)
[2022-03-09] MEDS: LACTATED RINGERS 1,000 ML IV SCH ×2 (05:52→17:08)
[2022-03-09] MEDS: MYLANTA/LIDO VISC/NYST 180 ML BOTTLE SWISH/SWAL SCH ×4 (07:18→20:23)
[2022-03-09] MEDS: BUDESONIDE/FORMOTEROL 160-4.5 INHALER 6 GM INH SCH ×2 (09:18→20:21)
[2022-03-09] MEDS: LEVOFLOXACIN 750 MG TABLET PO SCH (09:18)
[2022-03-09] MEDS: CHOLECALCIFEROL 5,000 UNIT TABLET PO SCH ×2 (09:18→20:20)
[2022-03-09] MEDS: guaiFENesin/DM ER 600-30 MG TABLET PO SCH ×2 (09:18→20:21)
[2022-03-09] MEDS: LOSARTAN 50 MG TABLET PO SCH (09:18)
[2022-03-09] MEDS: methylPREDNISolone SOD SUC 40 MG/1 ML VIAL IV SCH (09:19)
[2022-03-09] MEDS: FERRIC GLUCONATE COMPLEX 125 MG in SODIUM CHLORIDE 0.9% 100 ML IV SCH (09:43)
[2022-03-09] MEDS: MONTELUKAST 10 MG TABLET PO SCH (20:20)
[2022-03-10] MEDS: ALBUTEROL 2.5 MG/3 ML NEB RESP TX SCH ×2 (02:28→07:35)
[2022-03-10] MEDS: LACTATED RINGERS 1,000 ML IV SCH ×2 (03:13→15:10)
[2022-03-10] MEDS: PANTOPRAZOLE 40 MG TABLET PO SCH (05:47)
[2022-03-10] MEDS: METOPROLOL TARTRATE 25 MG TABLET PO SCH ×2 (05:47→13:37)
[2022-03-10 06:00] LABS: Basophils % 0.2 % (0.0-0.8); Eosinophils # 0.1 10*3/uL (0.0-0.87); Eosinophils % 0.8 % (0.00-10.9); Hematocrit 31.4 VOL% (35.7-47.0); Hemoglobin 9.6 GM/DL (12.0-16.0); Immature Granulocytes % 5.2 %; Immature Granulocytes Absolute 0.65 #; Lymphocytes # 2.8 10*3/uL (1.4-4.0); Lymphocytes % 22.4 % (21.3-54.2); Mean Corpuscular HGB Conc 30.6 GM/DL (32-36); Mean Corpuscular Volume 98.4 FL (87-102); Monocytes # 0.6 10*3/uL (0.11-0.8); Monocytes % 4.4 % (1.7-12.7); Platelet Count 301 T/CUMM (130-400); Red Blood Count 3.19 MC/CUMM (3.8-5.5); Red Cell Distribution Width 17.1 % (9.3-17.3); White Blood Count 12.4 T/CUMM (4-12)
[2022-03-10 06:21] LABS: Eosinophils 1 % (0-10); Hypochromia Slight; Lymphocytes 25 % (20-55); Microcytosis Slight; Platelet Estimate Adequate; Total Cells Counted 100
[2022-03-10 06:24] LABS: Calcium 8.3 MG/DL (8.5-10.1); Osmolality,Calculated 279.5 MOS/KG (273-304); Potassium 3.5 MMOL/L (3.5-5.1)
[2022-03-10] MEDS ORDERED: predniSONE 20 MG TABLET PO SCH (09:00)
[2022-03-10] MEDS: guaiFENesin/DM ER 600-30 MG TABLET PO SCH (09:22)
[2022-03-10] MEDS: FERRIC GLUCONATE COMPLEX 125 MG in SODIUM CHLORIDE 0.9% 100 ML IV SCH (09:22)
[2022-03-10] MEDS: BUDESONIDE/FORMOTEROL 160-4.5 INHALER 6 GM INH SCH (09:23)
[2022-03-10] MEDS: CHOLECALCIFEROL 5,000 UNIT TABLET PO SCH (09:23)
[2022-03-10] MEDS: MYLANTA/LIDO VISC/NYST 180 ML BOTTLE SWISH/SWAL SCH ×2 (09:23→13:47)
[2022-03-10] MEDS: LOSARTAN 50 MG TABLET PO SCH (09:23)
[2022-03-10] MEDS: LEVALBUTEROL 1.25 MG/3 ML NEB RESP TX SCH ×2 (09:28→14:00)
[2022-03-10 16:12] VITALS: BP 131/68
== END 2022-03-10 16:39 | disposition home health service (06) | DRG 196 ==
LOC: EDBD → EDUNIT# → N.ED 13:55 → N.EDINP 17:42 → SUATTDRO 17:42 → N.5E 20:10
PROVIDERS: ADMIT Internal Medicine; ATTEND Internal Medicine